=== PATIENT | female | born 1975 | race Caucasian/White ===

== ENCOUNTER → 2018-07-18 | Outpatient (CLI) | payer OTHER, SELFPAY ==
--- NOTE | 2018-07-18 08:46 | MRI_ITS ---
STUDY: MRI LEFT FOREFOOT WITHOUT CONTRAST REASON FOR EXAM: Female, 43 years old. Sesamoiditis. Pain at the first MTP joint TECHNIQUE: Standardized fat and water weighted pulse sequences were obtained in all 3 orthogonal planes. COMPARISON: None. FINDINGS: There is degenerative arthrosis of the metatarsophalangeal joint of the hallux. Normal tibial and fibular sesamoids, with normal sesamoids-first metatarsal articulations. Normal interphalangeal joint of the hallux. Normal proximal and distal phalanges of the great toe. Normal medial and lateral heads of the flexor hallucis brevis tendons. Normal flexor and extensor hallucis longus tendons. There are joint effusions of the metatarsophalangeal (MTP) joints. Normal interphalangeal joints of the second through fifth toes. Normal proximal, middle and distal phalanges of the second through fifth toes. There is intermetatarsal bursitis of the third interspace. Normal flexor and extensor tendons of the second through fifth toes. Normal visualized metatarsi. Normal intrinsic muscles of the forefoot. There is no demonstrated soft tissue abnormality. There is no demonstrated fracture. MRI/Lower Ext/No Jt/w/o IMPRESSION: No fracture or periosteal reaction Arthritic change at the first MTP joint. Intermetatarsal bursitis of the third interspace. Electronically Signed: Tejas Haley MD at 14:48 EDT , Service support ,
== END | disposition home or self-care (01) ==
LOC: MRI 08:39
PROVIDERS: Referring Provider Podiatrist; Visit Provider Podiatrist
DX: M25.872 Other specified joint disorders, left ankle and foot (principal); M84.375A Stress fracture, left foot, initial encounter for fracture
CPT/HCPCS: 73718

== ENCOUNTER → 2020-05-16 | Outpatient (CLI) | payer BC, SELFPAY ==
[2017-01-13 13:17] VITALS: BMI 30.7
[2020-05-19 20:07] LABS: Age Gdln ACOG Testing 30-65 (.)
[2020-05-19 21:06] LABS: HPV APTIMA, High Risk Negative (Negative); HPV Reflexed? YES, CHARGE PATIENT
== END | disposition home or self-care (01) ==
LOC: LABSPEC 15:27
PROVIDERS: Visit Provider Family Medicine
DX: Z01.419 Encounter for gynecological examination (general) (routine) without abnormal findings (principal); Z12.4 Encounter for screening for malignant neoplasm of cervix
CPT/HCPCS: 87624; 88175; G0145

== ENCOUNTER → 2020-05-23 11:43 | Outpatient (CLI) | payer BC, SELFPAY ==
--- NOTE | 2020-05-23 11:53 | BI_ITS ---
MAMMOGRAPHY - BILATERAL SCREENING REASON FOR EXAM: Female, 45 years old. Routine annual screening examination. PERTINENT HISTORY: Grandmother with breast cancer. TECHNIQUE: Digital bilateral breast ana (3D mammographic acquisition) in the CC and MLO projections. 2-D mediolateral oblique (MLO) and craniocaudad (CC) views of both breasts were obtained. CAD: Full Field Digital Mammography with Computer Added Detection was performed. COMPARISON: None. Baseline examination. FINDINGS: Breast Composition: The breasts are heterogeneously dense, which may obscure small masses. There are no dominant masses or suspicious calcifications. No other significant abnormalities are identified. BI/SCRN MAMM (CAD)W/ANA BILAT IMPRESSION: Negative screening mammogram. Yearly followup mammogram recommended. (A) ASSESSMENT CATEGORY: BIRADS Category 1: Negative. A letter regarding these results will be sent to the patient by the facility within 30 days. Approximately 10% of breast cancers are not detected by mammography. A normal mammogram should not delay biopsy of a clinically suspicious abnormality. [id number] Electronically Signed: Deep Henry MD at 12:52 EDT , Service support ,
== END ==
PROVIDERS: PCP Family Medicine; Referring Provider Family Medicine; Visit Provider Family Medicine
DX: Z12.31 Encounter for screening mammogram for malignant neoplasm of breast (principal)
CPT/HCPCS: 77063; 77067

== ENCOUNTER 2020-05-26 13:30 | Outpatient (RCR) | payer BC, SELFPAY ==
[2017-01-13 13:17] VITALS: BMI 30.7
== END 2020-08-08 23:59 ==
LOC: IMMUN 13:30
PROVIDERS: PCP Family Medicine; Referring Provider Family Medicine; Visit Provider Family Medicine
DX: Z23 Encounter for immunization (principal)
CPT/HCPCS: 0001A; 0002A; 91300

== ENCOUNTER → 2021-11-13 | Outpatient (CLI) | payer BC, SELFPAY ==
[2021-11-13 15:48] LABS: Thyroid Stim Hormone (TSH) 1.95 uIU/mL (0.358-3.74)
[2021-11-13 15:51] LABS: Hemoglobin A1c 5.2 % (3.8-5.6)
== END | disposition home or self-care (01) ==
LOC: MTLAB 12:48
PROVIDERS: PCP Family Medicine; Referring Provider Family Medicine; Visit Provider Family Medicine
DX: Z00.00 Encounter for general adult medical examination without abnormal findings (principal); N95.1 Menopausal and female climacteric states; R53.83 Other fatigue
CPT/HCPCS: 36415; 83036; 84443

== ENCOUNTER → 2021-12-03 | Outpatient (CLI) | payer BC, SELFPAY ==
--- NOTE | 2021-12-03 10:24 | BI_ITS ---
MAMMOGRAPHY - BILATERAL SCREENING REASON FOR EXAM: Female, 46 years old. Routine annual screening examination. PERTINENT HISTORY: Grandmother with breast cancer. TECHNIQUE: Digital bilateral breast ana (3D mammographic acquisition) in the CC and MLO projections. 2-D mediolateral oblique (MLO) and craniocaudad (CC) views of both breasts were obtained. CAD: Full Field Digital Mammography with Computer Added Detection was performed. COMPARISON: Comparison is made with prior study dated 05/23/2020. FINDINGS: Breast Composition: The breasts are heterogeneously dense, which may obscure small masses. There are no dominant masses or suspicious calcifications. No other significant abnormalities are identified. There has been no significant change since the prior study. BI/SCRN MAMM (CAD)W/ANA BILAT IMPRESSION: Stable bilateral screening mammogram. Yearly follow-up mammogram recommended. (A) ASSESSMENT CATEGORY: BIRADS Category 1: Negative. A letter regarding these results will be sent to the patient by the facility within 30 days. Approximately 10% of breast cancers are not detected by mammography. A normal mammogram should not delay biopsy of a clinically suspicious abnormality. [id number] Electronically Signed: Deep Henry MD at 12:23 EDT ,
== END | disposition home or self-care (01) ==
LOC: OPBI 10:22
PROVIDERS: PCP Family Medicine; Visit Provider Family Medicine
DX: Z12.31 Encounter for screening mammogram for malignant neoplasm of breast (principal)
CPT/HCPCS: 77063; 77067

== ENCOUNTER 2022-04-15 00:40 | Inpatient (IN) | payer BC, SELFPAY ==
[2022-04-15] VITALS (26 sets, daily range): BP systolic 95–153; BP diastolic 59–94; PULSE 67–145; RESP 15–28; TEMP 36.6–37.7; O2SAT 91–98; BMI 27.3; BMI 28.4
[2022-04-15] MEDS: Morphine 4 MG/ML Syringe IV (01:01)
[2022-04-15] MEDS: 0.9% Normal Saline 1,000 ML 999 ML IV (01:01)
[2022-04-15] MEDS: Ondansetron 4 MG/2 ML Vial IV (01:01)
[2022-04-15 01:03] LABS: Basophil# 0.03 X10^3/uL; Basophil% 0.2 % (0-1); Eosinophils% 0.8 % (0-5); Hematocrit 39.6 % (37-47); Hemoglobin 12.7 g/dL (12.0-15.0); Lymphocyte % 26.7 % (19-41); Mean Corp Hgb Conc 32.1 g/dL (32-36); Mean Corpuscular Hgb 28.9 pg (27.0-32.0); Mean Platelet Vol. 10.7 fl (6.2-12.0); Monocyte# 0.93 X10^3/uL; Monocyte% 7.5 % (0-10); NRBC Flagged by Analyzer 0 % (0-5); Neutrophil # 7.96 X10^3/uL (2.7-7.7); Neutrophil % 64.4 % (47-70); Platelet Count 299 K/mm3 (150-450); RBC Distribution Width CV 12.6 % (11.6-14.6); RBC Distribution Width SD 41.6 fl (35.1-43.9); White Blood Count 12.4 K/mm3 (4.4-11.0)
[2022-04-15 01:04] LABS: Anion Gap 7 (5-15); BUN 9 mg/dL (7-18); BUN/Creat Ratio 9.6 RATIO (10-20); Calcium,Total 9.1 mg/dL (8.5-10.1); Chloride 105 mmol/L (98-107); Creatinine, Serum 0.94 mg/dL (0.55-1.02); EST Glomerular Filtration Rate 68 mL/min (>60); Est Glom Filt Rate - Afr Amer 83 mL/min (>60); Estimated Creatinine Clearance 68.01 ml/min; Glucose 134 mg/dL (74-106); Sodium Level 140 mmol/L (136-145)
--- NOTE | 2022-04-15 01:04 | CT_ITS ---
EXAM: CT ABDOMEN AND PELVIS WITHOUT INTRAVENOUS CONTRAST CLINICAL INDICATION: flank pain flank pain TECHNIQUE: Helically acquired images were obtained of the abdomen and pelvis without intravenous contrast. This CT exam was performed using one or more of the following dose reduction techniques: automated exposure control, adjustment of the mA and/or kV according to patient size, and/or use of iterative reconstruction technique. This report was created using [employer] report generation technology. RADIATION DOSE: CTDIvol = 8.68 mGy, DLP = 466.03 mGy-cm COMPARISON: None. FINDINGS: LOWER THORAX: Unremarkable. Lung bases are clear. No cardiomegaly. No significant pericardial effusion. ABDOMEN: LIVER: Unremarkable. Homogeneous. GALLBLADDER AND BILE DUCTS: Unremarkable. No calcified gallstones. No gallbladder distention or wall edema. No intra- or extrahepatic biliary ductal dilation. PANCREAS: Unremarkable. No focal cystic mass. SPLEEN: Unremarkable. Normal size without focal cystic or solid mass. ADRENALS: Unremarkable. No nodules. KIDNEYS AND URETERS: Unremarkable. Normal renal size and position. No hydronephrosis. STOMACH AND BOWEL: There appears to be mural thickening of the loops of jejunum, which may be an artifact of nondistention. There is fluid distention of the loops of ileum, with diameters ranging up to 3.2 cm. This probably represents a localized ileus due to appendicitis. There is no evidence for mechanical small bowel obstruction. There is prominent fecal material in the right hemicolon which may represent constipation. PELVIS: APPENDIX: The appendix is not readily delineated in its entirety due to presence of dense surrounding fat infiltration, adjacent bowel loops, as well as lack of IV contrast. Segments of the appendix can be seen on axial images 125-139 and it is abnormally thickened with diameters ranging up to 2.3 cm. It contains multiple appendicoliths. There appears to be thickening of the cecal wall at the base of the appendix, seen on axial images 170-124. Findings are consistent with acute appendicitis. There is no visualized periappendiceal abscess or free intraperitoneal air to strongly suggest appendiceal rupture, however, infiltration of mesenteric fat is fairly extensive and there is a small amount of free fluid in the posterior cul-de-sac of the pelvis. Given these findings, appendiceal rupture cannot be excluded entirely. Possibility of pre-existing inflammatory bowel disease/Crohn''s disease would also be consideration. BLADDER: Unremarkable. REPRODUCTIVE: Unremarkable as visualized. No mass. ABDOMEN and PELVIS: INTRAPERITONEAL SPACE: See above. BONES/JOINTS: There are multilevel degenerative changes in the visualized spine. No suspicious lytic or blastic abnormality. SOFT TISSUES: Unremarkable. No discrete abdominal or pelvic wall hernia. VASCULATURE: Unremarkable. Abdominal aorta is non-dilated. LYMPH NODES: There are hyperplastic mesenteric lymph nodes in the right lower quadrant of the abdomen with short axis diameters ranging up to 1 cm. These probably represent reactive nodes related to appendicitis. CT/Abdomen/Pelvis without Cont IMPRESSION: 1. Enlarged appendix with appendicoliths and prominent surrounding inflammatory changes, consistent with acute appendicitis. 2. Inflammatory changes are quite extensive, there is a small amount of free fluid in the posterior cul-de-sac of the pelvis, and there is probably mild mural thickening of some loops of jejunum. This may represent spread of inflammation from appendicitis. Possibility of pre-existing inflammatory bowel disease should also be considered. Rupture of the appendix is thought to be unlikely, but cannot be entirely excluded given these findings. 3. Distention of the multiple loops of ileum probably represents localized ileus secondary to appendicitis. No evidence for mechanical small bowel obstruction. N.B. : The above Results were Read Back by Rashaad Wright MD to Darwin Rock DO, and understanding confirmed on 04/15/2022 02:21:05 (ET). Electronically Signed: Rashaad Wright MD at 2:31 EST Reading Location ID and State: [facility] / [place] , Service support ,
[2022-04-15 01:18] LABS: Internal QC Validated? YES +Cl - CLEAR BKGD; Pregnancy, Serum, hCG Quali. NEGATIVE Negative
[2022-04-15 01:23] LABS: AST(SGOT) 11 U/L (15-37); Alanine Aminotransfer ALT/SGPT 11 U/L (13-56); Albumin, Serum 3.7 g/dL (3.2-5.0); Alkaline Phosphatase 66 U/L (45-117); Bilirubin, Direct 0.08 mg/dL (0.00-0.30); Globulin 3.6 g/dL (2.2-4.2); Lipase 162 U/L (73-393); Protein, Total 7.3 g/dL (6.4-8.2)
[2022-04-15] MEDS: Ketorolac 30 MG/ML Syringe IV (01:27)
[2022-04-15] MEDS: HYDROmorphone 1 MG/ML Syringe IV ×2 (01:42→02:50)
[2022-04-15 02:23] LABS: Mucous, Urine 0 SEEN /hpf (<or=2+); Red Blood Cells-Urine 0 SEEN /hpf (0-5); Squamous Epithelial Cells - UA 0 SEEN /hpf (5-10); White Blood Cells 0 SEEN /hpf (0-5)
[2022-04-15 02:35] LABS: Color, Urine Yellow (Yellow); Glucose, Dipstick Normal (Normal); Ketone-Dipstick Negative (Negative); Leukocyte Esterase-Dipstick Negative /ul (Negative); Nitrite-Dipstick Negative (Negative); Occult Blood-Urine Negative /ul (Negative); Protein-Dipstick Negative (Negative); Urine Bilirubin Dipstick Negative (Negative); Urine Clarity Clear (Clear); Urine Urobilinogen Normal (Normal); Urine pH 6.5 (5.0 - 8.0)
[2022-04-15 02:42] LABS: Bacteria RARE /hpf (None Seen)
--- NOTE | 2022-04-15 03:26 | PCM.HP.STD ---
HPI - General General Date of Admission: 04/15/22 Date of Service: 04/15/22 Chief Complaint: abdominal pain HPI Narrative CHECO WINCHESTER, is a 47 F who presents with abdominal pain. She states that she initially started with generalized lower abdominal pain, she thought that this may be menstrual cramps. This began around and then she states that she was pain free for about two days. Then she began having pain - lower abdomen, more so on left side - today. She noted only recently has having right lower quadrant abdominal pain. She denies fevers. She denies chronic diarrhea. She denies constipation CT scan concerning for possible ruptured appendicits with surrounding inflammation. She has an elevated WBC of 12K. [facility] Medical History (Updated 04/15/22 @ 03:[address] Mariella Gallardo MD) Abdominal pain Abnormal CT scan, gastrointestinal tract Bipolar disorder Tonsillectomy planned Home Medications lamotrigine 200 mg tablet (Lamictal) 300 mg PO DAILY 01/02/17 [History Last Taken Unknown] quetiapine 300 mg tablet,extended release 24 hr mg PO 04/15/22 [History Last Taken Unknown] Allergy/AdvReac Type Severity Reaction Status Date / Time No Known Allergies Allergy Verified 01/24/17 08:22 Surgical History History of placement of ear tubes Social History Smoking Status: Never smoker ROS Constitutional Constitutional: Denies chills or fever(s) Eyes Eyes: Denies blurry vision ENT HEENT: Denies epistaxis Cardiovascular Cardiovascular: Denies chest pain at rest Respiratory/Chest Respiratory/Chest: Denies shortness of breath at rest Gastrointestinal Gastrointestinal: Reports abdominal pain; Denies constipation or diarrhea Genitourinary Genitourinary: Denies hematuria Musculoskeletal Musculoskeletal: Denies abnormal gait Integumentary Integumentary: Denies jaundice Neurologic Neurologic: Denies loss of vision Vital Signs Vital Signs Vital Signs: 04/15/22 00:41 04/15/22 01:40 04/15/22 02:54 Temperature 98.1 F Temperature Source Oral Pulse Rate 136 H 67 Respiratory Rate 18 18 18 Blood Pressure 140/62 H 130/75 H Blood Pressure Mean 88 93 Blood Pressure Location Pulse Ox 98 98 Oxygen Delivery Method Room Air Room Air 04/15/22 03:00 Temperature 98.9 F Temperature Source Temporal Pulse Rate 67 Respiratory Rate 18 Blood Pressure 130/75 H Blood Pressure Mean 93 Blood Pressure Location Right Arm Pulse Ox 98 Oxygen Delivery Method Room Air Weight Weight: 74.7 kg Body Mass Index (BMI) 27.3 Results Medical Records Data Attestation: I reviewed the patient's medical records Lab / Micro Data Attestation: I reviewed the patient's lab results. Result Diagrams: 04/15/22 00:43 04/15/22 00:43 Labs: Laboratory Results - last 24 hr 04/15/22 00:43: WBC 12.4 H, RBC 4.40, Hgb 12.7, Hct 39.6, MCV 90.0, MCH 28.9, MCHC 32.1, RDW Std Deviation 41.6, RDW Coeff of Radha 12.6, Plt Count 299, MPV 10.7, Immature Gran % (Auto) 0.400, Neut % (Auto) 64.4, Lymph % (Auto) 26.7, [place] % (Auto) 7.5, Eos % (Auto) 0.8, Baso % (Auto) 0.2, Absolute Neuts (auto) 8.0 H, Absolute Lymphs (auto) 3.30, Nucleated RBC % 0 04/15/22 00:43: Sodium 140, Potassium 4.0, Chloride 105, Carbon Dioxide 28.0, Anion Gap 7, BUN 9, Creatinine 0.94, Estim Creat Clear Calc 68.01, Est GFR (MDRD) Af Amer 83, Est GFR (MDRD) Non-Af 68, BUN/Creatinine Ratio 9.6 L, Glucose 134 H, Calcium 9.1 04/15/22 00:43: Serum , Qual NEGATIVE 04/15/22 00:43: Total Bilirubin 0.20, Direct Bilirubin 0.08, AST 11 L, ALT 11 L, Alkaline Phosphatase 66, Total Protein 7.3, Albumin 3.7, Globulin 3.6, Lipase 162 04/15/22 02:20: Urine Color Yellow, Urine Clarity Clear, Urine pH 6.5, Ur Specific [place] 1.010, Urine Protein Negative, Urine Glucose (UA) Normal, Urine Ketones Negative, Urine Occult Blood Negative, Urine Nitrite Negative, Urine Bilirubin Negative, Urine Urobilinogen Normal, Ur Leukocyte Esterase Negative, Urine RBC 0 SEEN, Urine WBC 0 SEEN, Ur Squamous Epith Cells 0 SEEN, Urine Bacteria RARE, Urine Mucus 0 SEEN Radiology Impression Abdomen/Pelvis CT 04/15/22 01:04 IMPRESSION: 1. Enlarged appendix with appendicoliths and prominent surrounding inflammatory changes, consistent with acute appendicitis. 2. Inflammatory changes are quite extensive, there is a small amount of free fluid in the posterior cul-de-sac of the pelvis, and there is probably mild mural thickening of some loops of jejunum. This may represent spread of inflammation from appendicitis. Possibility of pre-existing inflammatory bowel disease should also be considered. Rupture of the appendix is thought to be unlikely, but cannot be entirely excluded given these findings. 3. Distention of the multiple loops of ileum probably represents localized ileus secondary to appendicitis. No evidence for mechanical small bowel obstruction. N.B. : The above Results were Read Back by Rashaad Wright MD to Darwin Rock DO, and understanding confirmed on 04/15/2022 02:21:05 (ET). Electronically Signed: Rashaad Wright MD at 2:31 EST Reading Location ID and State: [facility] / [place] , Service support , ADDENDUM: 04/15/22 0238 IMPRESSION: 1. Enlarged appendix with appendicoliths and prominent surrounding inflammatory changes, consistent with acute appendicitis. 2. Inflammatory changes are quite extensive, there is a small amount of free fluid in the posterior cul-de-sac of the pelvis, and there is probably mild mural thickening of some loops of jejunum. This may represent spread of inflammation from appendicitis. Possibility of pre-existing inflammatory bowel disease should also be considered. Rupture of the appendix is thought to be unlikely, but cannot be entirely excluded given these findings. 3. Distention of the multiple loops of ileum probably represents localized ileus secondary to appendicitis. No evidence for mechanical small bowel obstruction. N.B. : The above Results were Read Back by Rashaad Wright MD to Darwin Rock DO, and understanding confirmed on 04/15/2022 02:21:05 (ET). Electronically Signed: Rashaad Wright MD at 2:31 EST Reading Location ID and State: [facility] / [place] , Service support , Assessment & Plan Assessment/Plan (1) Abnormal CT scan, gastrointestinal tract: PLAN: see below (2) Abdominal pain: PLAN: see below PLAN: Plan patient presents with RLQ, that initially was generalized/lower abdomen She has WBC of 12K CT scan findings are suggestive of appendicitis with large amount of surrounding inflammatory changes, concern for rupture. She denies any inflammatory bowel disease symptoms. Will proceed to laparoscopic appendectomy. I have discussed above with patient and her . If needed, this may be converted to open laparotomy. I have counseled the patient as to the risks of the procedure, including but not limited to: infection, bleeding, injury to any blood vessels/nerves, scar tissue, injury to any intrabdominal organs, injury to kidney/ureters, injury to bowel/bladder, intraabdominal abscess/bleeding, hernias at incisional sites, wound infections, possible open procedure, complications of anesthesia, postoperative pneumonia/cardiac problems/blood clots etc. the patient understands. She agrees to proceed I have answered all questions to the patient?s satisfaction and the patient has no further questions.
--- NOTE | 2022-04-15 04:24 | EX.ED.DYSGE1 ---
HPI History of Present Illness Chief Complaint: Abd Pain Narrative Narrative: Patient is a 47-year-old female with past medical history of bipolar disorder. She states she developed some crampy abdominal pain on which resolved. She states then this evening she was sleeping when she awoke with severe pain. She states it is located across the entire abdomen but seems to be more intense in the lower mid and left-sided abdomen. She reports nausea associated with the pain but denies any vomiting diarrhea or dysuria. She denies any fevers or chills and denies any recent trauma or concern for . However secondary to the worsening pain presents for evaluation [facility] Medical History Abdominal pain Abnormal CT scan, gastrointestinal tract Bipolar disorder Tonsillectomy planned Home Medications lamotrigine 200 mg tablet (Lamictal) 300 mg PO DAILY 01/02/17 [History Last Taken Unknown] quetiapine 300 mg tablet,extended release 24 hr 400 mg PO QHS 04/15/22 [History Last Taken 04/14/22] Allergy/AdvReac Type Severity Reaction Status Date / Time No Known Allergies Allergy Verified 04/15/22 05:49 Surgical History History of placement of ear tubes Social History Smoking Status: Current every day smoker tobacco type: e-cigarettes and smokeless tobacco ROS ROS ED Constitutional Constitutional ED: Denies chills or fever(s) ENT ENT ED: Denies sore throat Cardiovascular Cardiovascular: Denies chest pain Respiratory/Chest Respiratory/Chest: Denies cough or dyspnea Gastrointestinal Gastrointestinal: Reports abdominal pain and nausea; Denies constipation, diarrhea or vomiting Genitourinary Genitourinary ED: Denies dysuria or hematuria Musculoskeletal Musculoskeletal: Denies back pain or myalgias Integumentary Denies rash Neurologic Neurologic: Denies headache(s) Hematologic/Lymphatic Hematologic/Lymphatic: Denies easy bleeding or easy bruising EXAM Physical Exam Const Vital Signs: 04/15/22 00:41 04/15/22 01:40 04/15/22 02:54 Temperature 98.1 F Temperature Source Oral Pulse Rate 136 H 67 Respiratory Rate 18 18 18 Blood Pressure 140/62 H 130/75 H Blood Pressure Mean 88 93 Blood Pressure Location Pulse Ox 98 98 Oxygen Delivery Method Room Air Room Air 04/15/22 03:00 04/15/22 04:42 Temperature 98.9 F 98.9 F Temperature Source Temporal Temporal Pulse Rate 67 67 Respiratory Rate 18 18 Blood Pressure 130/75 H 130/75 H Blood Pressure Mean 93 93 Blood Pressure Location Right Arm Pulse Ox 98 98 Oxygen Delivery Method Room Air Room Air Positive well nourished and well developed General Appearance ED: well developed HEENT Reports moist mucous membranes Eyes PERRL and EOMs intact bilaterally General Eye ED: Negative for scleral icterus Neck supple Resp normal respiratory effort and clear to auscultation bilaterally Cardio regular rhythm Rate: tachycardic and other Other Details: Tachycardia cardiac rate with regular rhythm. radial pulses are pluses are 2 out of 4 bilaterally they are equal and symmetric GI non-distended GI Narrative: Abdomen is soft and nondistended with normal active bowel sounds. There is diffuse pain on palpation but it appears greatest in the suprapubic and left lower quadrant regions. No pulsatile mass or fluid wave noted Auscultation: normoactive bowel sounds Palpation: soft Back/Spine no CVA tenderness Extremity normal to inspection Neuro oriented x3 and CN's II-XII intact bilaterally Sensorium / Orientation: alert Psych mental status grossly normal Skin no rashes or lesions noted Skin Narrative: No overlying soft tissue changes to suggest infection or trauma General Skin Exam: Negative for jaundice MDM MDM MDM Narrative Medical decision making narrative: Patient presented to the ER afebrile but she was writhing in pain and she was tachycardic which I felt was secondary to the pain response as on auscultation she had a regular rhythm. The way she is writhing with sudden onset of pain was most concerning for kidney stone so basic labs with urine sample and noncontrast CT were ordered. Patient's white count is elevated at 12.4 but otherwise she has no severe electrolyte derangement or signs of acute kidney injury. The patient's CT scan showed diffuse intestinal inflammation but greatest in the right lower quadrant with changes concerning for acute appendicitis. Secondary to this she was given Zosyn and general surgery was contacted. Dr. Gallardo/general surgery was contacted secondary to this read. She evaluated the patient in the ER and will take the patient to surgery for correction of her abdominal infection. Lab Data Attestation: I reviewed the patient's lab results. Labs: Laboratory Results - last 24 hr 04/15/22 04/15/22 04/15/22 00:43 00:43 00:43 WBC 12.4 H RBC 4.40 Hgb 12.7 Hct 39.6 MCV 90.0 MCH 28.9 MCHC 32.1 RDW Std Deviation 41.6 RDW Coeff of Radha 12.6 Plt Count 299 MPV 10.7 Immature Gran % (Auto) 0.400 Neut % (Auto) 64.4 Lymph % (Auto) 26.7 [place] % (Auto) 7.5 Eos % (Auto) 0.8 Baso % (Auto) 0.2 Absolute Neuts (auto) 8.0 H Absolute Lymphs (auto) 3.30 Nucleated RBC % 0 Sodium 140 Potassium 4.0 Chloride 105 Carbon Dioxide 28.0 Anion Gap 7 BUN 9 Creatinine 0.94 Estim Creat Clear Calc 68.01 Est GFR (MDRD) Af Amer 83 Est GFR (MDRD) Non-Af 68 BUN/Creatinine Ratio 9.6 L Glucose 134 H Calcium 9.1 Total Bilirubin Direct Bilirubin AST ALT Alkaline Phosphatase Total Protein Albumin Globulin Lipase Serum , Qual NEGATIVE Urine Color Urine Clarity Urine pH Ur Specific [place] Urine Protein Urine Glucose (UA) Urine Ketones Urine Occult Blood Urine Nitrite Urine Bilirubin Urine Urobilinogen Ur Leukocyte Esterase Urine RBC Urine WBC Ur Squamous Epith Cells Urine Bacteria Urine Mucus Urine Opiates Screen Urine Methadone Screen Ur Barbiturates Screen Ur Phencyclidine Scrn Ur Amphetamines Screen MDMA (Ecstasy) Screen U Benzodiazepines Scrn Urine Cocaine Screen U Cannabinoids Screen Ur Drug Screen Comment 04/15/22 04/15/22 04/15/22 00:43 02:20 02:20 WBC RBC Hgb Hct MCV MCH MCHC RDW Std Deviation RDW Coeff of Radha Plt Count MPV Immature Gran % (Auto) Neut % (Auto) Lymph % (Auto) [place] % (Auto) Eos % (Auto) Baso % (Auto) Absolute Neuts (auto) Absolute Lymphs (auto) Nucleated RBC % Sodium Potassium Chloride Carbon Dioxide Anion Gap BUN Creatinine Estim Creat Clear Calc Est GFR (MDRD) Af Amer Est GFR (MDRD) Non-Af BUN/Creatinine Ratio Glucose Calcium Total Bilirubin 0.20 Direct Bilirubin 0.08 AST 11 L ALT 11 L Alkaline Phosphatase 66 Total Protein 7.3 Albumin 3.7 Globulin 3.6 Lipase 162 Serum , Qual Urine Color Yellow Urine Clarity Clear Urine pH 6.5 Ur Specific [place] 1.010 Urine Protein Negative Urine Glucose (UA) Normal Urine Ketones Negative Urine Occult Blood Negative Urine Nitrite Negative Urine Bilirubin Negative Urine Urobilinogen Normal Ur Leukocyte Esterase Negative Urine RBC 0 SEEN Urine WBC 0 SEEN Ur Squamous Epith Cells 0 SEEN Urine Bacteria RARE Urine Mucus 0 SEEN Urine Opiates Screen POSITIVE H Urine Methadone Screen NEGATIVE Ur Barbiturates Screen NEGATIVE Ur Phencyclidine Scrn NEGATIVE Ur Amphetamines Screen NEGATIVE MDMA (Ecstasy) Screen NEGATIVE U Benzodiazepines Scrn NEGATIVE Urine Cocaine Screen NEGATIVE U Cannabinoids Screen POSITIVE H Ur Drug Screen Comment Radiography Diagnostic Testing: Clinical Impression(s) from Imaging Studies Abdomen/Pelvis CT 04/15/22 01:04 IMPRESSION: 1. Enlarged appendix with appendicoliths and prominent surrounding inflammatory changes, consistent with acute appendicitis. 2. Inflammatory changes are quite extensive, there is a small amount of free fluid in the posterior cul-de-sac of the pelvis, and there is probably mild mural thickening of some loops of jejunum. This may represent spread of inflammation from appendicitis. Possibility of pre-existing inflammatory bowel disease should also be considered. Rupture of the appendix is thought to be unlikely, but cannot be entirely excluded given these findings. 3. Distention of the multiple loops of ileum probably represents localized ileus secondary to appendicitis. No evidence for mechanical small bowel obstruction. N.B. : The above Results were Read Back by Rashaad Wright MD to Darwin Rock DO, and understanding confirmed on 04/15/2022 02:21:05 (ET). Electronically Signed: Rashaad Wright MD at 2:31 EST Reading Location ID and State: [facility] / [place] , Service support , ADDENDUM: 04/15/22 0238 IMPRESSION: 1. Enlarged appendix with appendicoliths and prominent surrounding inflammatory changes, consistent with acute appendicitis. 2. Inflammatory changes are quite extensive, there is a small amount of free fluid in the posterior cul-de-sac of the pelvis, and there is probably mild mural thickening of some loops of jejunum. This may represent spread of inflammation from appendicitis. Possibility of pre-existing inflammatory bowel disease should also be considered. Rupture of the appendix is thought to be unlikely, but cannot be entirely excluded given these findings. 3. Distention of the multiple loops of ileum probably represents localized ileus secondary to appendicitis. No evidence for mechanical small bowel obstruction. N.B. : The above Results were Read Back by Rashaad Wright MD to Darwin Rock DO, and understanding confirmed on 04/15/2022 02:21:05 (ET). Electronically Signed: Rashaad Wright MD at 2:31 EST Reading Location ID and State: [facility] / [place] , Service support , Discharge Plan Dx/Rx/DC Orders Clinical Impression: Acute appendicitis Disposition Disposition: Acute Care Hospital [facility] Discharge Date/Time: 04/15/22 04:47
--- NOTE | 2022-04-15 05:05 | APP_PTH ---
PATIENT: CHECO [place]STER LOC: [facility] U#:[id number] AGE/SX: 47/F ROOM: [facility] RE04/15/[address]: Dr. Mariella Gallardo MD : 1975 BED: 1 DIS: 04/17/2022 SPEC #: [id number] RECD: 04/16/22 10:38 STATUS: JIMMY REBetina #: [id number] ALEXIS: 04/15/22 05:[address]: Mariella Gallardo DEPT: SURGICAL PATHOLOGY RECD BY: Aspen Preston ENTERED: 04/16/22 11:10 SP TYPE: APPENDIX OTHR DR: MD Dr. Nadege Zuluaga MD Dr. Prakash Chand, MD Tissues: Appendix, NOS Procedures: Surgery Specimen Level III HEADER OPERATION: Laparoscopic appendectomy PRE-OP DIAGNOSIS: Acute appendicitis, perforated TISSUE SUBMITTED: Appendix MICROSCOPIC DIAGNOSIS Appendix, appendectomy: Acute appendicitis and periappendicitis. SANTO:morro 04/17/2022 MICROSCOPIC DESCRIPTION Slides are reviewed. GROSS DESCRIPTION Received in fixative is one container labeled with the patient's name and designated appendix. The specimen consists of an appendix measuring 7.0 cm in length and 1.5 cm in average diameter. No gross perforations are evident. The serosal surface shows rodrigez-green discoloration. Serial sections reveal a patent lumen. Environmental Planning Engineer sections are submitted in two cassettes. / AM:morro 04/16/2022 TC:2 CPT: 55016
--- NOTE | 2022-04-15 05:26 | ECHOD_ITS ---
Reason For Study: Arrhythmia Procedure This was a 2D Doppler, Color Flow transthoracic echocardiogram. Exam performed portable in patient room. Left Ventricle Normal left ventricle. Left ventricular systolic function is normal. The estimated ejection fraction is 60 %. No regional wall motion abnormalities noted. Right Ventricle Normal RV size. Normal systolic function. Atria Normal left atrium. Normal right atrium. Mitral Valve Normal mitral valve. Tricuspid Valve Normal tricuspid valve. Mild (1+) tricuspid valve insufficiency. Pulmonary artery systolic pressure is 36 mmHg. Aortic Valve Normal aortic valve. Trisinus/trileaflet aortic valve. Pulmonic Valve Normal pulmonic valve. Great Vessels Normal aortic root. The pulmonary artery is normal size. Normal inferior vena cava. Pericardium/Pleural No pericardial effusion. MMode/2D Measurements & Calculations LVIDd: 4.2 cm IVSd: 1.1 cm Ao root diam: 3.0 cm LVIDs: 2.7 cm LVPWd: 1.1 cm RVDd: 2.9 cm FS: 35.6 % LAV(MOD-bp): 35.0 ml LVAd ap4: 26.9 cm2 LVAd ap2: 27.2 cm2 LAV(MOD-bp) Indexed: 19.2 ml/m2 LVLd ap4: 7.3 cm LVLd ap2: 7.9 cm LAV(MOD-sp2): 24.1 ml EDV(MOD-sp4): 81.0 ml EDV(MOD-sp2): 78.8 ml LAV(MOD-sp4): 51.4 ml EDV(sp4-el): 83.9 ml EDV(sp2-el): 79.7 ml LVAs ap4: 14.7 cm2 LVAs ap2: 16.5 cm2 LVLs ap4: 6.1 cm LVLs ap2: 6.8 cm ESV(MOD-sp4): 30.1 ml ESV(MOD-sp2): 32.8 ml ESV(sp4-el): 29.9 ml ESV(sp2-el): 33.8 ml EF(MOD-sp4): 62.8 % EF(MOD-sp2): 58.3 % EF(sp4-el): 64.4 % SV(MOD-sp4): 50.8 ml SV(MOD-sp2): 46.0 ml SV(sp4-el): 54.0 ml LA A4 area: 16.5 cm2 RA A4 area: 10.2 cm2 Doppler Measurements & Calculations MV E max miguelito: 111.2 cm/sec Lat Peak E' Miguelito: 12.2 cm/sec Med Peak E' Miguelito: 30.0 cm/sec E/E' lat: 9.1 E/E' med: 3.7 Ao V2 max: 140.8 cm/sec LV V1 max: 110.9 cm/sec PA V2 max: 106.0 cm/sec Ao max P.9 mmHg LV V1 max P.9 mmHg TR max miguelito: 281.0 cm/sec TR max P.6 mmHg ECHO/Echo Complete Interpretation Summary Normal left ventricle. Left ventricular systolic function is normal. The estimated ejection fraction is 60 %. Pulmonary artery systolic pressure is 36 mmHg. Structurally normal valves. Ordering Physician: German Bauer Referring Physician: Nadege Toure Performed By: Whitney Segura RDCS
--- NOTE | 2022-04-15 05:29 | PN.HOSP_ITS ---
Reason for Visit Reason for Visit: Diagnoses Unspecified abdominal pain (04/15/22) Abnormal findings on diagnostic imaging of other parts of digestive tract (04/15/22) Subjective Subjective Patient is a 47-year-old female with a significant history of bipolar disorder who presented to the emergency department with abdominal pain and CT scan conc erning for possible ruptured appendicitis with surrounding inflammation. Patient was taken to the operating room but was on the operation table and just before induction reportedly patient was having PVCs, bigeminy and a run of PVCs. Her heart rate went into the 140s to 150s. Anesthesia felt uncomfortable proceeding with induction. Surgery was not started. Patient reports drinking about 4 cups of coffee a day with last coffee a day before presentation. Objective Data Objective Data Vital Signs: Vital Signs Temp Pulse Resp BP Pulse Ox O2 Del Method 98.9 F 67 18 130/75 H 98 Room Air 04/15/22 04:42 04/15/22 04:42 04/15/22 04:42 04/15/22 04:42 04/15/22 04:42 04/15/22 04:42 Oxygen Delivery Method Room Air Weight: 74.7 kg Body Mass Index (BMI) 27.3 Intake & Output: Intake and Output for Last 24 Hours 04/13/22 04/14/22 04/15/22 23:59 23:59 23:59 Intake Total 1050 / 1050 Balance 1050 / 1050 Lab / Micro Data Result Diagrams: 04/15/22 00:43 04/15/22 00:43 Labs: Laboratory Results - last 24 hr 04/15/22 00:43: WBC 12.4 H, RBC 4.40, Hgb 12.7, Hct 39.6, MCV 90.0, MCH 28.9, MCHC 32.1, RDW Std Deviation 41.6, RDW Coeff of Radha 12.6, Plt Count 299, MPV 10.7, Immature Gran % (Auto) 0.400, Neut % (Auto) 64.4, Lymph % (Auto) 26.7, [place] % (Auto) 7.5, Eos % (Auto) 0.8, Baso % (Auto) 0.2, Absolute Neuts (auto) 8.0 H, Absolute Lymphs (auto) 3.30, Nucleated RBC % 0 04/15/22 00:43: Sodium 140, Potassium 4.0, Chloride 105, Carbon Dioxide 28.0, Anion Gap 7, BUN 9, Creatinine 0.94, Estim Creat Clear Calc 68.01, Est GFR (MDRD ) Af Amer 83, Est GFR (MDRD) Non-Af 68, BUN/Creatinine Ratio 9.6 L, Glucose 134 H, Calcium 9.1 04/15/22 00:43: Serum , Qual NEGATIVE 04/15/22 00:43: Total Bilirubin 0.20, Direct Bilirubin 0.08, AST 11 L, ALT 11 L, Alkaline Phosphatase 66, Total Protein 7.3, Albumin 3.7, Globulin 3.6, Lipase 162 04/15/22 02:20: Urine Color Yellow, Urine Clarity Clear, Urine pH 6.5, Ur Specific [place] 1.010, Urine Protein Negative, Urine Glucose (UA) Normal, Urine Ketones Negative, Urine Occult Blood Negative, Urine Nitrite Negative, Urine Bi lirubin Negative, Urine Urobilinogen Normal, Ur Leukocyte Esterase Negative, Urine RBC 0 SEEN, Urine WBC 0 SEEN, Ur Squamous Epith Cells 0 SEEN, Urine Bacteria RARE, Urine Mucus 0 SEEN Radiography Diagnostic Testing: Radiology Impression Abdomen/Pelvis CT 04/15/22 01:04 IMPRESSION: 1. Enlarged appendix with appendicoliths and prominent surrounding inflammatory changes, consistent with acute appendicitis. 2. Inflammatory changes are quite extensive, there is a small amount of free fluid in the posterior cul-de-sac of the pelvis, and there is probably mild mural thickening of some loops of jejunum. This may represent spread of inflammation from appendicitis. Possibility of pre-existing inflammatory bowel disease should also be considered. Rupture of the appendix is thought to be unlikely, but cannot be entirely excluded given these findings. 3. Distention of the multiple loops of ileum probably represents localized ileus secondary to appendicitis. No evidence for mechanical small bowel obstruction. N.B. : The above Results were Read Back by Rashaad Wright MD to Darwin Rock DO, and understanding confirmed on 04/15/2022 02:21:05 (ET). Electronically Signed: Rashaad Wright MD at 2:31 EST Reading Location ID and State: [facility] / [place] , Service support , ADDENDUM: 04/15/22 0238 IMPRESSION: 1. Enlarged appendix with appendicoliths and prominent surrounding inflammatory changes, consistent with acute appendicitis. 2. Inflammatory changes are quite extensive, there is a small amount of free fluid in the posterior cul-de-sac of the pelvis, and there is probably mild mural thickening of some loops of jejunum. This may represent spread of inflammation from appendicitis. Possibility of pre-existing inflammatory bowel disease should also be considered. Rupture of the appendix is thought to be unlikely, but cannot be entirely excluded given these findings. 3. Distention of the multiple loops of ileum probably represents localized ileus secondary to appendicitis. No evidence for mechanical small bowel obstruction. N.B. : The above Results were Read Back by Rashaad Wright MD to Darwin Rock DO, and understanding confirmed on 04/15/2022 02:21:05 (ET). Electronically Signed: Rashaad Wright MD at 2:31 EST Reading Location ID and State: [facility] / [place] , Service support , Physical Exam Narrative Physical exam: General: Well-nourished, well-developed. Head: Normocephalic, atraumatic, no tenderness Eyes: Vision is grossly intact. EOMI ENT, no trauma, moist mucous membranes, no rhinorrhea Neck: Nontender, No thyromegaly. CVS: Regular rate and rhythm. S1-S2 present. No murmur, gallop or rub. Respiratory : clear to auscultation bilaterally, chest wall nontender, no wheezing Abdomen: Soft, tender, nondistended, bowel sounds hypoactive. : Deferred Back: Nontender, no CVA tenderness, no midline spinal tenderness, deformities, step-offs Extremities: Nontender full range of motion, no trauma Skin: Normal color, no trauma, abrasions Neuro: Alert, oriented, cranial nerves II through XII grossly intact. Psychiatry: Normal mood. Normal affect. Not depressed. Not anxious. Assessment & Plan Assessment/Plan (1) Acute appendicitis: (2) Dysrhythmia: PLAN: Plan Acute appendicitis with possible rupture. Management by General surgery. Recommend antibiotics as patient may have to be cleared by cardiology before patient can have appendectomy. Dysrhythmia Patient noted to have tachycardia; PVCs with bigeminy and rounds of PVCs. Potassium is normal. Trend BMP. Check magnesium. Check TSH. Check echocardiogram. Cardiology consult. Denies use of cocaine. Scheduled metoprolol IV ordered. Bipolar disorder: Lamictal continued. VT prophylaxis: SCDs ordered. Thank you for your consult. Internal medicine service will continue to follow. Charges/Coding Multi Select Codes Visit Charges Office Visit/Consults: 98093 OV L4 Est
--- NOTE | 2022-04-15 05:34 | EKG12_ITS ---
Test Reason : DYSRYTHMIA Blood Pressure : / mmHG Vent. Rate : 131 BPM Atrial Rate : 131 BPM P-R Int : 132 ms QRS Dur : 088 ms QT Int : 316 ms P-R-T Axes : 057 073 056 degrees QTc Int : 466 ms Sinus tachycardia with frequent Premature ventricular complexes Otherwise normal ECG No previous ECGs available Confirmed by KEE CLARK, DANIEL ([id number]), index editor DELANEY HICKS ([id number]) on 04/16/2022 9:33:19 AM Referred By: Confirmed By:DANIEL SWEET MD
--- NOTE | 2022-04-15 06:06 | PCM.PN.BLA ---
Progress Note surgery was cancelled as patient had cardiac arrhythmia and anesthesia stated that patient should have cardiac evaluation before proceeding patient does admit to remote history of cocaine use, has history of marijuana use as documented in 2017
[2022-04-15] MEDS: Metoprolol Tartrate 5 MG/5 ML Vial IV (06:37)
[2022-04-15] MEDS: 0.9% Normal Saline 1,000 ML 125 ML IV ×2 (06:38→22:39)
--- NOTE | 2022-04-15 06:55 | CON.PCM.CA_ITS ---
Assessment & Plan Assessment/Plan (1) Dysrhythmia: PLAN: Patient is noted to have multiple premature ventricular complexes and nonsustained VT. We will obtain electrolyte panel to make sure that potassium remains over 4 and magnesium over 2. * I will recommend an echocardiogram to assess her ventricular function. If her ejection fraction is noted to be normal and her electrolytes are within normal limits I would recommend intravenous beta-manohar and 1 dose of amiodarone and then proceeding with surgery. * Further recommendations will be made depending on the results of the above. * * Thank you for allowing me to participate in the care of your patient. Please don't hesitate to call if any issues arise. * * * Addendum: Echocardiogram demonstrated preserved left ventricular systolic function. No structural abnormalities noted. I would recommend that we proceed with surgery. Above communicated with anesthesiologist. HPI Consult Data Date of Consult: 04/15/22 HPI Narrative HPI Narrative: CHECO WINCHESTER, is a 47 F who presents with abdominal comfort and diagnosed as having appendicitis who is being taken to the operating room and was noted to have premature ventricular complexes as well as nonsustained VT. The surgery was therefore canceled and patient was brought to the progressive care unit and urgent cardiology consultation requested. Patient denies any chest pain or shortness of breath or paroxysmal nocturnal dyspnea or pedal edema no neck arm or jaw discomfort suggest angina. There is a family history of a cardiomyopathy. Patient does admit to occasional marijuana use. EKG demonstrated sinus rhythm with frequent premature ventricular complexes but no a cute changes and telemetry demonstrated the same. [facility] Medical History Abdominal pain Abnormal CT scan, gastrointestinal tract Bipolar disorder Tonsillectomy planned Home Medications lamotrigine 200 mg tablet (Lamictal) 300 mg PO DAILY 01/02/17 [History Last Taken Unknown] quetiapine 300 mg tablet,extended release 24 hr 400 mg PO QHS 04/15/22 [History Last Taken 04/14/22] Allergy/AdvReac Type Severity Reaction Status Date / Time No Known Allergies Allergy Verified 04/15/22 05:49 Surgical History History of placement of ear tubes Social History Smoking Status: Current every day smoker tobacco type: e-cigarettes and smokeless tobacco ROS Constitutional Constitutional: Denies fever(s) or weight loss Eyes Eyes: Reports systems reviewed and no addt'l complaints, except as documented ENT HEENT: Reports systems reviewed and no addt'l complaints, except as documented Cardiovascular Cardiovascular: Denies chest pain at rest, chest pain with activity, dyspnea at rest, dyspnea on exertion, edema, palpitations or paroxysmal nocturnal dyspnea Respiratory/Chest Respiratory/Chest: Denies dyspnea on exertion, productive cough, shortness of breath at rest or shortness of breath with exertion Gastrointestinal Gastrointestinal: Reports abdominal pain and nausea; Denies change in bowel habits, vomiting or weight changes Genitourinary Genitourinary: Denies difficulty urinating Musculoskeletal Musculoskeletal: Denies joint stiffness or muscle weakness Integumentary Integumentary: Denies lesions Neurologic Neurologic: Denies dizziness or syncope Psychiatric Psychiatric: Denies anxiety Endocrine Endocrinology: Denies excessive sweating or fatigue Hematologic/Lymphatic Hematologic/Lymphatic: Denies anemia Allergic/Immunologic Allergic/Immunologic: Denies seasonal rhinorrhea Physical Exam Const alert, oriented x3 and no apparent distress General Appearance: cooperative HEENT hearing grossly normal bilaterally Head and Scalp: atraumatic Eyes EOMs intact bilaterally Neck General: normal visual inspection Chest inspection of chest normal and palpation of chest normal Resp normal respiratory effort Auscultation: clear to auscultation bilaterally Cardio regular rate, regular rhythm, S1 normal heart sound and S2 normal heart sound Jugular Venous Distention: JVD GI normal to inspection, nondistended, normoactive bowel sounds Extremity normal capillary refill and no pedal edema Peripheral Pulses: Yes pulses 2+ throughout and femoral pulses present Skin no rashes or lesions noted Neuro oriented x3 and CN's II-XII intact bilaterally Psych Appearance: grossly normal and appropriate Risk Stratification Risk Stratification Applicable: No Objective Data Vital Signs: Vital Signs Temp Pulse Resp BP Pulse Ox O2 Del Method 98.5 F 121 H 19 H 142/76 H 93 Room Air 04/15/22 06:39 04/15/22 06:39 04/15/22 06:39 04/15/22 06:39 04/15/22 06:39 04/15/22 06:39 Oxygen Delivery Method Room Air Weight: 171 lb 1.259 oz Body Mass Index (BMI) 28.4 Intake & Output: Intake and Output for Last 24 Hours 04/13/22 04/14/22 04/15/22 23:59 23:59 23:59 Intake Total 1050 / 1050 Balance 1050 / 1050 Lab / Micro Data Result Diagrams: 04/15/22 00:43 04/15/22 06:20 Labs: Laboratory Results - last 24 hr 04/15/22 00:43: WBC 12.4 H, RBC 4.40, Hgb 12.7, Hct 39.6, MCV 90.0, MCH 28.9, MCHC 32.1, RDW Std Deviation 41.6, RDW Coeff of Radha 12.6, Plt Count 299, MPV 10.7, Immature Gran % (Auto) 0.400, Neut % (Auto) 64.4, Lymph % (Auto) 26.7, [place] % (Auto) 7.5, Eos % (Auto) 0.8, Baso % (Auto) 0.2, Absolute Neuts (auto) 8.0 H, Absolute Lymphs (auto) 3.30, Nucleated RBC % 0 04/15/22 00:43: Sodium 140, Potassium 4.0, Chloride 105, Carbon Dioxide 28.0, Anion Gap 7, BUN 9, Creatinine 0.94, Estim Creat Clear Calc 68.01, Est GFR (MDRD) Af Amer 83, Est GFR (MDRD) Non-Af 68, BUN/Creatinine Ratio 9.6 L, Glucose 134 H, Calcium 9.1 04/15/22 00:43: Serum , Qual NEGATIVE 04/15/22 00:43: Total Bilirubin 0.20, Direct Bilirubin 0.08, AST 11 L, ALT 11 L, Alkaline Phosphatase 66, Total Protein 7.3, Albumin 3.7, Globulin 3.6, Lipase 162 04/15/22 02:20: Urine Color Yellow, Urine Clarity Clear, Urine pH 6.5, Ur Specific [place] 1.010, Urine Protein Negative, Urine Glucose (UA) Normal, Urine Ketones Negative, Urine Occult Blood Negative, Urine Nitrite Negative, Urine Bilirubin Negative, Urine Urobilinogen Normal, Ur Leukocyte Esterase Negative, Urine RBC 0 SEEN, Urine WBC 0 SEEN, Ur Squamous Epith Cells 0 SEEN, Urine Bacteria RARE, Urine Mucus 0 SEEN Cardiology Labs/Tests 04/15/22 00:43: WBC 12.4 H, RBC 4.40, Hgb 12.7, Hct 39.6, MCV 90.0, MCH 28.9, MCHC 32.1, Plt Count 299, MPV 10.7, Immature Gran % (Auto) 0.400, Neut % (Auto) 64.4, Lymph % (Auto) 26.7, [place] % (Auto) 7.5, Eos % (Auto) 0.8, Baso % (Auto) 0.2, Absolute Neuts (auto) 8.0 H, Nucleated RBC % 0 04/15/22 00:43: Sodium 140, Potassium 4.0, Chloride 105, Carbon Dioxide 28.0, Anion Gap 7, BUN 9, Creatinine 0.94, Est GFR (MDRD) Af Amer 83, Est GFR (MDRD) Non-Af 68, BUN/Creatinine Ratio 9.6 L, Glucose 134 H, Calcium 9.1 04/15/22 00:43: Total Bilirubin 0.20, Direct Bilirubin 0.08 04/15/22 02:20: Urine Color Yellow, Urine Clarity Clear, Urine pH 6.5, Ur Spe cific [place] 1.010, Urine Protein Negative, Urine Glucose (UA) Normal, Urine Ketones Negative, Urine Occult Blood Negative, Urine Nitrite Negative, Urine Bilirubin Negative, Urine Urobilinogen Normal, Ur Leukocyte Esterase Negative, Urine RBC 0 SEEN, Urine WBC 0 SEEN Rhythm: EKG: ECHO: Stress Test: Cardiac Cath: PCI: CT Surgery: Holter monitor: EPS: PPM: CXR: Chest CT Scan: Radiography Diagnostic Testing: Radiology Impression Abdomen/Pelvis CT 04/15/22 01:04 IMPRESSION: 1. Enlarged appendix with appendicoliths and prominent surrounding inflammatory changes, consistent with acute appendicitis. 2. Inflammatory changes are quite extensive, there is a small amount of free fluid in the posterior cul-de-sac of the pelvis, and there is probably mild mural thickening of some loops of jejunum. This may represent spread of inflammation from appendicitis. Possibility of pre-existing inflammatory bowel disease should also be considered. Rupture of the appendix is thought to be unlikely, but cannot be entirely excluded given these findings. 3. Distention of the multiple loops of ileum probably represents localized ileus secondary to appendicitis. No evidence for mechanical small bowel obstruction. N.B. : The above Results were Read Back by Rashaad Wright MD to Darwin Rock DO, and understanding confirmed on 04/15/2022 02:21:05 (ET). Electronically Signed: Rashaad Wright MD at 2:31 EST , ADDENDUM: 04/15/22 0238
[2022-04-15] MEDS: lamoTRIgine 150 MG Tablet 300 MG PO (06:59)
[2022-04-15] MEDS: 0.9% Saline Lock 10 ML Syringe IV (07:02)
[2022-04-15] MEDS: HYDROmorphone 0.5 MG/0.5 ML SYRINGE IV ×7 (07:02→22:24)
[2022-04-15 07:15] LABS: Anion Gap 6 (5-15); BUN 6 mg/dL (7-18); BUN/Creat Ratio 7.5 RATIO (10-20); Calcium,Total 8.2 mg/dL (8.5-10.1); Chloride 110 mmol/L (98-107); EST Glomerular Filtration Rate 83 mL/min (>60); Est Glom Filt Rate - Afr Amer 100 mL/min (>60); Estimated Creatinine Clearance 79.91 ml/min; Glucose 123 mg/dL (74-106); Magnesium 2.3 mg/dL (1.6-2.6); Potassium 3.8 mmol/L (3.5-5.1); Sodium Level 142 mmol/L (136-145); Thyroid Stim Hormone (TSH) 2.23 uIU/mL (0.358-3.74)
[2022-04-15 07:21] LABS: Troponin-I HS 7 pg/mL (3.0-54.0)
[2022-04-15 07:26] LABS: Amphetamine Urine VISTA NEGATIVE (<1000 ng/mL); Barbiturate Urine VISTA NEGATIVE (< 200 ng/mL); Benzodiazepine Urine VISTA NEGATIVE (< 200 ng/mL); Cocaine Urine VISTA NEGATIVE (< 300 ng/mL); Ecstacy Urine VISTA NEGATIVE (< 500 ng/mL); Methadone Urine VISTA NEGATIVE (< 300 ng/mL); PCP Urine VISTA NEGATIVE (< 25 ng/mL); THC Urine VISTA POSITIVE (< 50 ng/mL); Vista UDS pH Range 6
[2022-04-15 07:39] LABS: Phosphorus 1.5 mg/dL (2.5-4.9)
--- NOTE | 2022-04-15 07:48 | PCM.PN.HOSP ---
Reason for Visit Reason for Visit: Diagnoses Cardiac arrhythmia, unspecified (04/15/22) Unspecified acute appendicitis (04/15/22) Unspecified abdominal pain (04/15/22) Abnormal findings on diagnostic imaging of other parts of digestive tract (04/15/22) Subjective Subjective Follow-up for complicated appendicitis with localized peritonitis with NSVT, pulsus bigeminy and PVCs Objective Data Objective Data Vital Signs: Vital Signs Temp Pulse Resp BP Pulse Ox O2 Del Method 98.5 F 119 H 21 H 105/71 94 Room Air 04/15/22 06:39 04/15/22 07:41 04/15/22 07:41 04/15/22 07:41 04/15/22 07:41 04/15/22 07:41 Oxygen Delivery Method Room Air Weight: 171 lb 1.259 oz Body Mass Index (BMI) 28.4 Intake & Output: Intake and Output for Last 24 Hours 04/13/22 04/14/22 04/15/22 23:59 23:59 23:59 Intake Total 1050 / 1050 Balance 1050 / 1050 Lab / Micro Data Result Diagrams: 04/15/22 00:43 04/15/22 06:20 Labs: Laboratory Results - last 24 hr 04/15/22 00:43: WBC 12.4 H, RBC 4.40, Hgb 12.7, Hct 39.6, MCV 90.0, MCH 28.9, MCHC 32.1, RDW Std Deviation 41.6, RDW Coeff of Radha 12.6, Plt Count 299, MPV 10.7, Immature Gran % (Auto) 0.400, Neut % (Auto) 64.4, Lymph % (Auto) 26.7, [place] % (Auto) 7.5, Eos % (Auto) 0.8, Baso % (Auto) 0.2, Absolute Neuts (auto) 8.0 H, Absolute Lymphs (auto) 3.30, Nucleated RBC % 0 04/15/22 00:43: Sodium 140, Potassium 4.0, Chloride 105, Carbon Dioxide 28.0, Anion Gap 7, BUN 9, Creatinine 0.94, Estim Creat Clear Calc 68.01, Est GFR (MDRD) Af Amer 83, Est GFR (MDRD) Non-Af 68, BUN/Creatinine Ratio 9.6 L, Glucose 134 H, Calcium 9.1 04/15/22 00:43: Serum , Qual NEGATIVE 04/15/22 00:43: Total Bilirubin 0.20, Direct Bilirubin 0.08, AST 11 L, ALT 11 L, Alkaline Phosphatase 66, Total Protein 7.3, Albumin 3.7, Globulin 3.6, Lipase 162 04/15/22 02:20: Urine Color Yellow, Urine Clarity Clear, Urine pH 6.5, Ur Specific [place] 1.010, Urine Protein Negative, Urine Glucose (UA) Normal, Urine Ketones Negative, Urine Occult Blood Negative, Urine Nitrite Negative, Urine Bilirubin Negative, Urine Urobilinogen Normal, Ur Leukocyte Esterase Negative, Urine RBC 0 SEEN, Urine WBC 0 SEEN, Ur Squamous Epith Cells 0 SEEN, Urine Bacteria RARE, Urine Mucus 0 SEEN 04/15/22 02:20: Urine Opiates Screen POSITIVE H, Urine Methadone Screen NEGATIVE, Ur Barbiturates Screen NEGATIVE, Ur Phencyclidine Scrn NEGATIVE, Ur Amphetamines Screen NEGATIVE, MDMA (Ecstasy) Screen NEGATIVE, U Benzodiazepines Scrn NEGATIVE, Urine Cocaine Screen NEGATIVE, U Cannabinoids Screen POSITIVE H, Ur Drug Screen Comment 04/15/22 06:20: Sodium 142, Potassium 3.8, Chloride 110 H, Carbon Dioxide 26.0, Anion Gap 6, BUN 6 L, Creatinine 0.80, Estim Creat Clear Calc 79.91, Est GFR (MDRD) Af Amer 100, Est GFR (MDRD) Non-Af 83, BUN/Creatinine Ratio 7.5 L, Glucose 123 H, Calcium 8.2 L, Magnesium 2.3, TSH 2.23 04/15/22 06:20: Troponin I High Sens 7 04/15/22 06:20: Phosphorus 1.5 L Radiography Diagnostic Testing: Radiology Impression Abdomen/Pelvis CT 04/15/22 01:04 IMPRESSION: 1. Enlarged appendix with appendicoliths and prominent surrounding inflammatory changes, consistent with acute appendicitis. 2. Inflammatory changes are quite extensive, there is a small amount of free fluid in the posterior cul-de-sac of the pelvis, and there is probably mild mural thickening of some loops of jejunum. This may represent spread of inflammation from appendicitis. Possibility of pre-existing inflammatory bowel disease should also be considered. Rupture of the appendix is thought to be unlikely, but cannot be entirely excluded given these findings. 3. Distention of the multiple loops of ileum probably represents localized ileus secondary to appendicitis. No evidence for mechanical small bowel obstruction. N.B. : The above Results were Read Back by Rashaad Wright MD to Darwin Rock DO, and understanding confirmed on 04/15/2022 02:21:05 (ET). Electronically Signed: Rashaad Wright MD at 2:31 EST , ADDENDUM: 04/15/22 0238 IMPRESSION: 1. Enlarged appendix with appendicoliths and prominent surrounding inflammatory changes, consistent with acute appendicitis. 2. Inflammatory changes are quite extensive, there is a small amount of free fluid in the posterior cul-de-sac of the pelvis, and there is probably mild mural thickening of some loops of jejunum. This may represent spread of inflammation from appendicitis. Possibility of pre-existing inflammatory bowel disease should also be considered. Rupture of the appendix is thought to be unlikely, but cannot be entirely excluded given these findings. 3. Distention of the multiple loops of ileum probably represents localized ileus secondary to appendicitis. No evidence for mechanical small bowel obstruction. N.B. : The above Results were Read Back by Rashaad Wright MD to Darwin Rock DO, and understanding confirmed on 04/15/2022 02:21:05 (ET). Electronically Signed: Rashaad Wright MD at 2:31 EST , Physical Exam Narrative Seen and examined. Patient is still has significant abdominal pain mainly right-sided and requiring Dilaudid very frequently. security monitor shows sinus rhythm with PVCs. Physical exam General: Alert, Oriented x3, Cooperative HEENT: Atraumatic, PERRLA, EOMI, Normocephalic Oral: No Gingival or Mucosal Lesions/ Ulcerations Neck: Supple, No JVD, Negative Carotid Bruits Lungs: Air entry diminished in bilateral lung bases. No crepitation/rhonchi Cardiovascular: Sinus rhythm, short run of NSVT. Normal S1, Normal S2, No murmurs Abdomen: Soft, bowel sounds sluggish. Abdomen acutely tender mainly on the right side. Not distended. : No renal angle tenderness. No suprapubic tenderness. Extremities: No edema, Capillary Refill Less than 3 Seconds Skin: No rashes, No breakdown Musculoskeletal: No Tenderness to Palpation of Joints or Extremities Neurological: Cranial nerves II-XII grossly intact, DTR 2+/4 and Symmetrical, Neuro grossly intact Psych/Mental Status: Flat affect. Assessment & Plan Assessment/Plan (1) Acute appendicitis: (2) Dysrhythmia: PLAN: Plan This is 47 old female admitted for severe abdominal pain and found to be acute appendicitis 1. Complicated acute appendicitis with localized peritonitis and inflammation and localized ileus. CT abdomen reviewed and shows surrounding inflammation around enlarged appendix with appendicoliths and jejunal loops. Management by General surgery. On IV Zosyn. Patient is to be taken to the OR today for suspicion of possible appendicular perforation/rupture. 2. Dysrhythmia: Patient had multiple PVCs and NSVT. Patient does not have chest pain/pressure or shortness of breath, PND or pedal edema or JVD to suggest heart failure or angina twelve-lead EKG shows frequent PVCs but sinus rhythm. Patient evaluated by revenue accounting manager and recommended to keep electrolytes in optimal range. IV beta-manohar to control heart rate. Patient denies use of cocaine or sympathomimetic substance uses. Echo EF 60%, structurally normal valves, grossly normal. 3. Mild hypophosphatemia: K3.8, magnesium 2.3 and phosphorus 1.5. IV potassium phosphate getting replaced. 4. Bipolar disorder: Lamictal continued. 5. VT prophylaxis: SCDs ordered. Clinical Impression(s) from Imaging Studies Abdomen/Pelvis CT 04/15/22 01:04 IMPRESSION: 1. Enlarged appendix with appendicoliths and prominent surrounding inflammatory changes, consistent with acute appendicitis. 2. Inflammatory changes are quite extensive, there is a small amount of free fluid in the posterior cul-de-sac of the pelvis, and there is probably mild mural thickening of some loops of jejunum. This may represent spread of inflammation from appendicitis. Possibility of pre-existing inflammatory bowel disease should also be considered. Rupture of the appendix is thought to be unlikely, but cannot be entirely excluded given these findings. 3. Distention of the multiple loops of ileum probably represents localized ileus secondary to appendicitis. No evidence for mechanical small bowel obstruction. Echocardiogram 04/15/22 05:26 Interpretation Summary Normal left ventricle. Left ventricular systolic function is normal. The estimated ejection fraction is 60 %. Pulmonary artery systolic pressure is 36 mmHg. Structurally normal valves. Charges/Coding Visit Charges Inpatient E&M: 91829 Subs Hosp L2
[2022-04-15] MEDS: 0.9% Normal Saline 1,000 ML 15 ML IV (16:10)
--- NOTE | 2022-04-15 16:42 | SUR.PREOP ---
dr luciano talking with pt and family. explaining the reason that surgery was canceled this morning, what cardiology did and why pt is cleared for sugery this afternoon.
[2022-04-15] MEDS: Bupiv/Epi 0.25% 30 ML Vial (19:28)
--- NOTE | 2022-04-15 19:28 | PCM.OPRPT ---
Report of Operation Date of Procedure: 04/15/22 Pre-Operative Diagnosis: acute appendicitis Post-Operative Diagnosis: acute appendicitis, ruptured, generalized peritonitis Surgery/Procedure Performed:: laparoscopic appendectomy Description of Surgical Findings:: generalized peritonitis, fecal material intraabdominally at perforation site, ruptured appendicitis Surgeon: Mariella Gallardo Type of Anesthesia: General Anesthesiologist: Domingo Garner Specimen's removed: appendix Drains: 15 Fr GAURI - one in pelvis; one right paracolic gutter Estimated Blood Loss (mL): 10 ml Fluids Replaced: 1000 ml Description of Procedure: After informed consent was obtained, the patient was brought into the operating room. Appropriate time out protocol was followed. She was then placed in the supine position on the operating table. The patient was then placed under general anesthesia. The patient?s abdomen was then prepped with a sterile surgical skin preparation and sterile surgical drapes were placed. The infraumbilical skin fold was grasped with penetrating clamps and the skin and subcutaneous tissues were infiltrated with 0.25% marcaine with epinephrine. A skin incision was then made. A Veress needle was then inserted into the intraabdominal cavity and checked to be in the proper position with a normal saline drop test. A CO2 pneumoperitoneum was then created. Once this was achieved, the Veress needle was removed and a 5 mm trocar was placed in its stead. A 5 mm laparoscope was then inserted into the trocar. Careful examination of the intraabdominal contents was then done. There was no evidence of injury to any internal organs from placement of the Veress needle or the trocar. Under direct visualization, a 12mm suprapubic trocar and a 5mm left lower quadrant trocar was then placed into the intraabdominal cavity. The skin and subcutaneous tissues at these sites were first infiltrated with 0.25% marcaine with epinephrine. Attention was then directed to the right lower quadrant. Of note, there was generalized peritonitis. The appendix was visualized. It was ruptured and there was fecal material spilled out. The mesentery of the appendix was taken down by cauterizing the tissue from the free edge to the base of the appendix with the Harmonic scalpel. Once the base of the appendix was freed of surrounding tissues, then the linear gastrointestinal stapling device was brought into the abdominal cavity via the 12mm port and placed across the base of the appendix. The stapling device was fired, thus stapling across the base of the appendix and transecting it simultaneously. The appendix was then placed in an Endobag and this was brought out through the suprapubic trocar. The appendix was then forwarded to Pathology for analysis. The appendiceal stump was carefully examined. There was no evidence of any active bleeding or fecal leakage. The surrounding tissues were also examined and there was no evidence of any active bleeding or fecal/bile leakage. The intraabdominal cavity was vigorously irrigated with normal saline with four liters. Two 15Fr drains were placed in the intraabdominal cavity, One catheter was directed up the right colic gutter, the other placed in the pelvis. The drains were then sutured to the skin using nylon suture. The CO2 pneumoperitoneum was released and all trocars were removed intact. All skin incisions were reapproximated with monocryl suture. Cavilon and steristrips were applied to reinforce skin closure and proper sterile dressings were placed. The patient was then extubated and brought to the Recovery Room in stable condition. Complications none noted Admit VTE Documentation VTE Present on Admission: Yes VTE Mechan Device Prophylaxis: SCD's
[2022-04-16] VITALS (10 sets, daily range): BP systolic 105–126; BP diastolic 62–79; PULSE 98–120; RESP 12–16; TEMP 36.6–36.8; O2SAT 94–98
[2022-04-16] MEDS: Ketorolac 30 MG/ML Syringe IV ×4 (00:10→17:47)
[2022-04-16] MEDS: QUEtiapine 100 MG Tablet 400 MG PO ×2 (00:11→20:34)
[2022-04-16 05:55] LABS: Absolute Lymphocyte Count 0.68 X10^3/uL (0.83-4.51); Absolute Neutrophil Count 10.3 X10^3/uL (2.0-7.7); Basophil# 0.02 X10^3/uL; Basophil% 0.2 % (0-1); Hematocrit 31.5 % (37-47); Hemoglobin 10.1 g/dL (12.0-15.0); Lymphocyte # 0.68 X10^3/ul (0.83-4.51); Lymphocyte % 5.9 % (19-41); Mean Corp Hgb Conc 32.1 g/dL (32-36); Mean Corpuscular Hgb 29.4 pg (27.0-32.0); Mean Corpuscular Volume 91.8 fL (81-99); Mean Platelet Vol. 10.6 fl (6.2-12.0); Monocyte# 0.41 X10^3/uL; Monocyte% 3.6 % (0-10); NRBC Flagged by Analyzer 0 % (0-5); Neutrophil # 10.27 X10^3/uL (2.7-7.7); Neutrophil % 89.4 % (47-70); Platelet Count 221 K/mm3 (150-450); RBC Distribution Width CV 12.9 % (11.6-14.6); RBC Distribution Width SD 42.8 fl (35.1-43.9); Red Blood Count 3.43 M/mm3 (4.2-5.4); White Blood Count 11.5 K/mm3 (4.4-11.0)
--- NOTE | 2022-04-16 07:26 | PCM.PN.CARD ---
Subjective Subjective Patient seen and evaluated. Doing well from the cardiovascular standpoint had uneventful surgery Objective Data Vital Signs: Vital Signs Temp Pulse Resp BP Pulse Ox O2 Del Method O2 Flow Rate 98.3 F 113 H 16 124/69 H 97 Room Air 3 04/16/22 06:00 04/16/22 06:00 04/16/22 06:00 04/16/22 06:00 04/16/22 06:00 04/16/22 06:00 04/15/22 22:41 Oxygen Flow Rate (L/min) 3 Oxygen Delivery Method Room Air Weight: 171 lb 1.259 oz Body Mass Index (BMI) 28.4 Intake & Output: Intake and Output for Last 24 Hours 04/14/22 04/15/22 04/16/22 23:59 23:59 23:59 Intake Total 3560.00 / 3560.00 300 / 300 Output Total 195 / 195 48 / 48 Balance 3365.00 / 3365.00 252 / 252 Lab / Micro Data Result Diagrams: 04/16/22 05:29 04/15/22 06:20 Labs: Laboratory Results - last 24 hr 04/15/22 02:20: Urine Opiates Screen POSITIVE H, Urine Methadone Screen NEGATIVE, Ur Barbiturates Screen NEGATIVE, Ur Phencyclidine Scrn NEGATIVE, Ur Amphetamines Screen NEGATIVE, MDMA (Ecstasy) Screen NEGATIVE, U Benzodiazepines Scrn NEGATIVE, Urine Cocaine Screen NEGATIVE, U Cannabinoids Screen POSITIVE H 04/15/22 06:20: Phosphorus 1.5 L 04/16/22 05:29: WBC 11.5 H, RBC 3.43 L, Hgb 10.1 L, Hct 31.5 L, MCV 91.8, MCH 29.4, MCHC 32.1, RDW Std Deviation 42.8, RDW Coeff of Radha 12.9, Plt Count 221, MPV 10.6, Immature Gran % (Auto) 0.900, Neut % (Auto) 89.4 H, Lymph % (Auto) 5.9 L, [place] % (Auto) 3.6, Eos % (Auto) 0.0, Baso % (Auto) 0.2, Absolute Neuts (auto) 10.3 H, Absolute Lymphs (auto) 0.68 L, Nucleated RBC % 0 Cardiology Labs/Tests 04/15/22 06:20: Phosphorus 1.5 L 04/16/22 05:29: WBC 11.5 H, RBC 3.43 L, Hgb 10.1 L, Hct 31.5 L, MCV 91.8, MCH 29.4, MCHC 32.1, Plt Count 221, MPV 10.6, Immature Gran % (Auto) 0.900, Neut % (Auto) 89.4 H, Lymph % (Auto) 5.9 L, [place] % (Auto) 3.6, Eos % (Auto) 0.0, Baso % (Auto) 0.2, Absolute Neuts (auto) 10.3 H, Nucleated RBC % 0 Rhythm: EKG: ECHO: Stress Test: Cardiac Cath: PCI: CT Surgery: Holter monitor: EPS: PPM: CXR: Chest CT Scan: Radiography Diagnostic Testing: Radiology Impression Echocardiogram 04/15/22 05:26 Interpretation Summary Normal left ventricle. Left ventricular systolic function is normal. The estimated ejection fraction is 60 %. Pulmonary artery systolic pressure is 36 mmHg. Structurally normal valves. Ordering Physician: German Bauer Referring Physician: Nadege Toure Performed By: Whitney Segura RDCS Physical Exam Const alert, oriented x3 and no apparent distress General Appearance: cooperative HEENT hearing grossly normal bilaterally Head and Scalp: atraumatic Eyes EOMs intact bilaterally Neck General: normal visual inspection Chest inspection of chest normal and palpation of chest normal Resp normal respiratory effort Auscultation: clear to auscultation bilaterally Cardio regular rate, regular rhythm, S1 normal heart sound and S2 normal heart sound Jugular Venous Distention: JVD GI normal to inspection, nondistended, normoactive bowel sounds Extremity normal capillary refill and no pedal edema Peripheral Pulses: Yes pulses 2+ throughout and femoral pulses present Skin no rashes or lesions noted Neuro oriented x3 and CN's II-XII intact bilaterally Psych Appearance: grossly normal and appropriate Assessment & Plan Assessment/Plan (1) Dysrhythmia: PLAN: Patient is noted to have multiple premature ventricular complexes and nonsustained VT. Echocardiogram done demonstrated preserved left ventricular systolic function. Patient underwent surgery uneventfully. Plan to be to continue expectant management and keep potassium above 4 and magnesium over 2 We will start low-dose beta-manohar with metoprolol 25 mg twice a day. We will sign off for now.
[2022-04-16] MEDS: HYDROmorphone 0.5 MG/0.5 ML SYRINGE IV (07:38)
[2022-04-16] MEDS: Metoprolol Tartrate 25 MG Tablet PO ×2 (08:33→20:35)
[2022-04-16] MEDS: lamoTRIgine 150 MG Tablet 300 MG PO (08:36)
--- NOTE | 2022-04-16 10:50 | CASEMGMT ---
RN GORGE Face to Face with patient for initial transition planning/care coordination assessment. RN CM introduced self and role at [facility]. Patient lying in bed, alert and oriented, at bedside. Patient willing to participate in assessment and is able to answer all questions appropriately. Care providers, pharmacy, and demographics verified. Patient wishes to discharge home, denies need for home health at this time. Patient states she has no further needs or concerns at this time. CM to follow for discharge planning needs that may arise. PCP: [facility] Specialists: rossana Davenport Preferred [facility]acy: [facility] Insurance: [place] Prescription Benefit: yes Living Will/HPOA: none LNOK: Living Arrangements: Patient lives with in a single story home with 4 steps and railing to enter the home. Patient states she is independent at home. Transportation: self, DME/HHC: Patient denies DME in the home. Patient denies previous HHC or SNF. Disposition Plan: Patient to discharge home with family support and follow-up plans in place. Rianna SHELTON, RN, CM
--- NOTE | 2022-04-16 11:36 | PN.SURG_ITS ---
Subjective Subjective patient states that she has less abdominal pain than yesterday GAURI output still not clear, purulent passing flatus feels a little hungry Objective Data Objective Data Vital Signs: Vital Signs Temp Pulse Resp BP Pulse Ox O2 Del Method O2 Flow Rate 98 F 120 H 12 120/72 94 Room Air 3 04/16/22 08:27 04/16/22 08:33 04/16/22 08:27 04/16/22 08:33 04/16/22 08:27 04/16/22 08:27 04/15/22 22:41 Oxygen Flow Rate (L/min) 3 Oxygen Delivery Method Room Air Weight: 77.6 kg Body Mass Index (BMI) 28.4 Intake & Output: Intake and Output for Last 24 Hours 04/14/22 04/15/22 04/16/22 23:59 23:59 23:59 Intake Total 3560.00 / 3560.00 350 / 350 Output Total 195 / 195 48 / 48 Balance 3365.00 / 3365.00 302 / 302 Lab / Micro Data Attestation: I reviewed the patient's lab results. Result Diagrams: 04/16/22 05:29 04/15/22 06:20 Labs: Laboratory Results - last 24 hr 04/16/22 05:29: WBC 11.5 H, RBC 3.43 L, Hgb 10.1 L, Hct 31.5 L, MCV 91.8, MCH 29.4, MCHC 32.1, RDW Std Deviation 42.8, RDW Coeff of Radha 12.9, Plt Count 221, MPV 10.6, Immature Gran % (Auto) 0.900, Neut % (Auto) 89.4 H, Lymph % (Auto) 5.9 L, [place] % (Auto) 3.6, Eos % (Auto) 0.0, Baso % (Auto) 0.2, Absolute Neuts (auto) 10.3 H, Absolute Lymphs (auto) 0.68 L, Nucleated RBC % 0 Physical Exam Const alert and oriented x3 HEENT normocephalic Neck supple Resp normal respiratory effort Effort and Inspection: able to speak in complete sentences GI GI Narrative: abdomen is soft with dressings intact GAURI output - serosanguinous with some purulent drainage Assessment & Plan Assessment/Plan (1) Status post laparoscopic appendectomy: PLAN: see below PLAN: Plan advance diet encourage ambulation, drinking fluids/water, incentive spirometry continue antibiotics start po meds/pain meds
[2022-04-16] MEDS: HYDROcodone Bitartrate/Apap 5/325 Tablet PO ×2 (13:36→20:35)
--- NOTE | 2022-04-16 14:36 | PCM.PN.HOSP ---
Reason for Visit Reason for Visit: Follow-up for ruptured appendicitis with generalized peritonitis and multiple PVCs and NSVT. Diagnoses Cardiac arrhythmia, unspecified (04/15/22) Unspecified acute appendicitis (04/15/22) Unspecified abdominal pain (04/15/22) Abnormal findings on diagnostic imaging of other parts of digestive tract (04/15/22) Acquired absence of other specified parts of digestive tract (04/15/22) Objective Data Objective Data Vital Signs: Vital Signs Temp Pulse Resp BP Pulse Ox O2 Del Method O2 Flow Rate 98 F 120 H 12 120/72 94 Room Air 3 04/16/22 08:27 04/16/22 08:33 04/16/22 08:27 04/16/22 08:33 04/16/22 08:27 04/16/22 08:27 04/15/22 22:41 Oxygen Flow Rate (L/min) 3 Oxygen Delivery Method Room Air Weight: 171 lb 1.259 oz Body Mass Index (BMI) 28.4 Intake & Output: Intake and Output for Last 24 Hours 04/14/22 04/15/22 04/16/22 23:59 23:59 23:59 Intake Total 3560.00 / 3560.00 1999 Output Total 195 / 195 148 / 148 Balance 3365.00 / 3365.00 1852 / 1852 Lab / Micro Data Result Diagrams: 04/16/22 05:29 04/15/22 06:20 Labs: Laboratory Results - last 24 hr 04/16/22 05:29: WBC 11.5 H, RBC 3.43 L, Hgb 10.1 L, Hct 31.5 L, MCV 91.8, MCH 29.4, MCHC 32.1, RDW Std Deviation 42.8, RDW Coeff of Radha 12.9, Plt Count 221, MPV 10.6, Immature Gran % (Auto) 0.900, Neut % (Auto) 89.4 H, Lymph % (Auto) 5.9 L, [place] % (Auto) 3.6, Eos % (Auto) 0.0, Baso % (Auto) 0.2, Absolute Neuts (auto) 10.3 H, Absolute Lymphs (auto) 0.68 L, Nucleated RBC % 0 Physical Exam Narrative Seen and examined. Patient abdominal pain has much improved. Patient passing flatus. On clear liquid diet. Patient and her upset about not communicated about the operative finding, pathology and PVCs and echo. I explained to them as per operative note. international student advisor shows multiple PVCs and runs of NSVT. Sinus tachycardia. Physical exam General: Alert, Oriented x3, Cooperative HEENT: Atraumatic, PERRLA, EOMI, Normocephalic Oral: Oral mucosa moist. No Gingival or Mucosal Lesions/ Ulcerations Neck: Supple, No JVD, Negative Carotid Bruits Lungs: Air entry diminished in bilateral lung bases. No crepitation/rhonchi Cardiovascular: Sinus rhythm, short run of NSVT. Normal S1, Normal S2, No murmurs Abdomen: Soft, bowel sounds bowel sounds present. 2 GAURI drain present and pelvis site. Serosanguineous drainage. Mild tenderness. : No renal angle tenderness. No suprapubic tenderness. Extremities: No edema, Capillary Refill Less than 3 Seconds Skin: No rashes, No breakdown Musculoskeletal: No Tenderness to Palpation of Joints or Extremities Neurological: Cranial nerves II-XII grossly intact, DTR 2+/4 and Symmetrical, Neuro grossly intact Psych/Mental Status: Flat affect. Assessment & Plan Assessment/Plan (1) Acute appendicitis: (2) Dysrhythmia: PLAN: Plan This is 47 old female admitted for severe abdominal pain and found to be acute appendicitis 1. Complicated acute appendicitis with localized peritonitis and inflammation and localized ileus. CT abdomen reviewed and shows surrounding inflammation around enlarged appendix with appendicoliths and jejunal loops. Management by General surgery. On IV Zosyn. Patient is to be taken to the OR today for suspicion of possible appendicular perforation/rupture. 04/16: Operative note reviewed and explained to the patient and her at the bedside. It was a ruptured appendix with fecal material intra-abdominal at perforation site and generalized peritonitis. Patient pain is started on and got worse and admitted on Friday. Passing flatus. On clear liquid diet. Continue IV antibiotic. GAURI drain has serosanguineous turbid looking fluid. 2. Dysrhythmia: Patient had multiple PVCs and NSVT. Patient does not have chest pain/pressure or shortness of breath, PND or pedal edema or JVD to suggest heart failure or angina twelve-lead EKG shows frequent PVCs but sinus rhythm. Patient evaluated by light fixture servicer and recommended to keep electrolytes in optimal range. IV beta-manohar to control heart rate. Patient denies use of cocaine or sympathomimetic substance uses. Echo EF 60%, structurally normal valves, grossly normal. 04/16: Patient on metoprolol oral. 2D echo explained to the patient. 3. Mild hypophosphatemia: K3.8, magnesium 2.3 and phosphorus 1.5. IV potassium phosphate getting replaced. 04/16: Repeat labs ordered. 4. Bipolar disorder: Lamictal continued. 5. VT prophylaxis: SCDs ordered. Clinical Impression(s) from Imaging Studies Abdomen/Pelvis CT 04/15/22 01:04 IMPRESSION: 1. Enlarged appendix with appendicoliths and prominent surrounding inflammatory changes, consistent with acute appendicitis. 2. Inflammatory changes are quite extensive, there is a small amount of free fluid in the posterior cul-de-sac of the pelvis, and there is probably mild mural thickening of some loops of jejunum. This may represent spread of inflammation from appendicitis. Possibility of pre-existing inflammatory bowel disease should also be considered. Rupture of the appendix is thought to be unlikely, but cannot be entirely excluded given these findings. 3. Distention of the multiple loops of ileum probably represents localized ileus secondary to appendicitis. No evidence for mechanical small bowel obstruction. Echocardiogram 04/15/22 05:26 Interpretation Summary Normal left ventricle. Left ventricular systolic function is normal. The estimated ejection fraction is 60 %. Pulmonary artery systolic pressure is 36 mmHg. Structurally normal valves. Charges/Coding Visit Charges Inpatient E&M: 24835 Subs Hosp L2
--- NOTE | 2022-04-16 15:12 | CASEMGMT ---
Patient does not have advance directives and per admission questions patient declined information on documents. Faviola PATEL
--- NOTE | 2022-04-16 15:13 | CASEMGMT ---
Patient does not have advance directives and per admission questions patient declined information on documents. Faviola PATEL
[2022-04-16 15:21] LABS: Anion Gap 6 (5-15); BUN 6 mg/dL (7-18); BUN/Creat Ratio 8.2 RATIO (10-20); Calcium,Total 7.7 mg/dL (8.5-10.1); Chloride 108 mmol/L (98-107); Creatinine, Serum 0.73 mg/dL (0.55-1.02); EST Glomerular Filtration Rate 92 mL/min (>60); Est Glom Filt Rate - Afr Amer 111 mL/min (>60); Estimated Creatinine Clearance 87.57 ml/min; Glucose 127 mg/dL (74-106); Magnesium 2.1 mg/dL (1.6-2.6); Potassium 4.3 mmol/L (3.5-5.1); Sodium Level 139 mmol/L (136-145)
[2022-04-16 15:41] LABS: Phosphorus 2.8 mg/dL (2.5-4.9)
[2022-04-16] MEDS: 0.9% Saline Lock 10 ML Syringe IV ×2 (17:47→22:05)
[2022-04-17] MEDS: Ketorolac 30 MG/ML Syringe IV ×4 (00:19→17:20)
[2022-04-17] MEDS: 0.9% Saline Lock 10 ML Syringe IV ×4 (00:19→17:21)
[2022-04-17 01:00] VITALS: PULSE 96
[2022-04-17 05:33] VITALS: BP 97/63; PULSE 100; RESP 14; TEMP 37; O2SAT 94
[2022-04-17 05:35] LABS: Absolute Lymphocyte Count 1.35 X10^3/uL (0.83-4.51); Absolute Neutrophil Count 6.1 X10^3/uL (2.0-7.7); Basophil# 0.02 X10^3/uL; Basophil% 0.2 % (0-1); Eosinophil# 0.14 X10^3/uL; Eosinophils% 1.7 % (0-5); Hematocrit 30.7 % (37-47); Lymphocyte # 1.35 X10^3/ul (0.83-4.51); Lymphocyte % 16.7 % (19-41); Mean Corp Hgb Conc 32.6 g/dL (32-36); Mean Corpuscular Hgb 29.5 pg (27.0-32.0); Mean Corpuscular Volume 90.6 fL (81-99); Mean Platelet Vol. 11.5 fl (6.2-12.0); Monocyte# 0.45 X10^3/uL; Monocyte% 5.6 % (0-10); NRBC Flagged by Analyzer 0 % (0-5); Neutrophil # 6.07 X10^3/uL (2.7-7.7); Neutrophil % 75.3 % (47-70); Platelet Count 222 K/mm3 (150-450); RBC Distribution Width CV 12.9 % (11.6-14.6); RBC Distribution Width SD 42.5 fl (35.1-43.9); Red Blood Count 3.39 M/mm3 (4.2-5.4); White Blood Count 8.1 K/mm3 (4.4-11.0)
[2022-04-17 06:09] LABS: Anion Gap 4 (5-15); BUN 6 mg/dL (7-18); BUN/Creat Ratio 7.8 RATIO (10-20); Chloride 109 mmol/L (98-107); Creatinine, Serum 0.77 mg/dL (0.55-1.02); EST Glomerular Filtration Rate 86 mL/min (>60); Est Glom Filt Rate - Afr Amer 104 mL/min (>60); Estimated Creatinine Clearance 83.02 ml/min; Glucose 105 mg/dL (74-106); Sodium Level 140 mmol/L (136-145)
[2022-04-17 07:27] VITALS: BP 107/71; PULSE 104; RESP 14; TEMP 36.7; O2SAT 94
--- NOTE | 2022-04-17 07:29 | PCM.PN.HOSP ---
Reason for Visit Reason for Visit: Diagnoses Cardiac arrhythmia, unspecified (04/15/22) Unspecified acute appendicitis (04/15/22) Unspecified abdominal pain (04/15/22) Abnormal findings on diagnostic imaging of other parts of digestive tract (04/15/22) Acquired absence of other specified parts of digestive tract (04/15/22) Subjective Subjective Follow-up for ruptured appendix with perforation, generalized peritonitis and tachycardia with PVCs and NSVT Objective Data Objective Data Vital Signs: Vital Signs Temp Pulse Resp BP Pulse Ox O2 Del Method O2 Flow Rate 98.1 F 104 H 14 107/71 94 Room Air 3 04/17/22 07:27 04/17/22 07:27 04/17/22 07:27 04/17/22 07:27 04/17/22 07:27 04/17/22 07:27 04/15/22 22:41 Oxygen Flow Rate (L/min) 3 Oxygen Delivery Method Room Air Weight: 171 lb 1.259 oz Body Mass Index (BMI) 28.4 Intake & Output: Intake and Output for Last 24 Hours 04/15/22 04/16/22 04/17/22 23:59 23:59 23:59 Intake Total 3560.00 / 3560.00 2700 / 2700 50 / 50 Output Total 195 / 195 363 / 363 80 / 80 Balance 3365.00 / 3365.00 2337 / 2337 -30 / -30 Lab / Micro Data Result Diagrams: 04/17/22 04:10 04/17/22 04:10 Labs: Laboratory Results - last 24 hr 04/16/22 05:29: Sodium 139, Potassium 4.3, Chloride 108 H, Carbon Dioxide 25.0, Anion Gap 6, BUN 6 L, Creatinine 0.73, Estim Creat Clear Calc 87.57, Est GFR (MDRD) Af Amer 111, Est GFR (MDRD) Non-Af 92, BUN/Creatinine Ratio 8.2 L, Glucose 127 H, Calcium 7.7 L, Magnesium 2.1 04/16/22 05:29: Phosphorus 2.8 04/17/22 04:10: WBC 8.1, RBC 3.39 L, Hgb 10.0 L, Hct 30.7 L, MCV 90.6, MCH 29.5, MCHC 32.6, RDW Std Deviation 42.5, RDW Coeff of Radha 12.9, Plt Count 222, MPV 11.5, Immature Gran % (Auto) 0.500, Neut % (Auto) 75.3 H, Lymph % (Auto) 16.7 L, [place] % (Auto) 5.6, Eos % (Auto) 1.7, Baso % (Auto) 0.2, Absolute Neuts (auto) 6.1, Absolute Lymphs (auto) 1.35, Nucleated RBC % 0 04/17/22 04:10: Sodium 140, Potassium 4.0, Chloride 109 H, Carbon Dioxide 27.0, Anion Gap 4 L, BUN 6 L, Creatinine 0.77, Estim Creat Clear Calc 83.02, Est GFR (MDRD) Af Amer 104, Est GFR (MDRD) Non-Af 86, BUN/Creatinine Ratio 7.8 L, Glucose 105, Calcium 8.0 L Physical Exam Narrative Seen and examined. Patient abdominal pain has much improved. Patient passing flatus. Diet advanced to regular diet. He has walked in hallway yesterday. Rate is better controlled. Heart rate in upper 100s. telemetry monitor shows PVCs decreased in frequency. Yesterday. Physical exam General: Alert, Oriented x3, Cooperative HEENT: Atraumatic, PERRLA, EOMI, Normocephalic Oral: Oral mucosa moist. No Gingival or Mucosal Lesions/ Ulcerations Neck: Supple, No JVD, Negative Carotid Bruits Lungs: Air entry diminished in bilateral lung bases. No crepitation/rhonchi Cardiovascular: Sinus rhythm, short run of NSVT. Normal S1, Normal S2, No murmurs Abdomen: Soft, bowel sounds bowel sounds present. 2 GAURI drain present in pelvis site. Turbid looking, seropurulent drainage. : No renal angle tenderness. No suprapubic tenderness. Extremities: No edema, Capillary Refill Less than 3 Seconds Skin: No rashes, No breakdown Musculoskeletal: No Tenderness to Palpation of Joints or Extremities Neurological: Cranial nerves II-XII grossly intact, DTR 2+/4 and Symmetrical, Neuro grossly intact Psych/Mental Status: Flat affect. Assessment & Plan Assessment/Plan (1) Acute appendicitis: (2) Dysrhythmia: PLAN: Plan This is 47 old female admitted for severe abdominal pain and found to be acute appendicitis 1. Complicated acute appendicitis with localized peritonitis and inflammation and localized ileus. CT abdomen reviewed and shows surrounding inflammation around enlarged appendix with appendicoliths and jejunal loops. Management by General surgery. On IV Zosyn. Patient is to be taken to the OR today for suspicion of possible appendicular perforation/rupture. 04/16: Operative note reviewed and explained to the patient and her at the bedside. It was a ruptured appendix with fecal material intra-abdominal at perforation site and generalized peritonitis. Patient pain is started on and got worse and admitted on Friday. Passing flatus. On clear liquid diet. Continue IV antibiotic. GAURI drain has serosanguineous turbid looking fluid. 04/17: Patient abdominal pain is much improved. She had Seroquel late therefore she was groggy in the morning but improved later on. Diet advanced to solid diet. Passing flatus. Bowel sounds good. 2. Dysrhythmia: Patient had multiple PVCs and NSVT. Patient does not have chest pain/pressure or shortness of breath, PND or pedal edema or JVD to suggest heart failure or angina twelve-lead EKG shows frequent PVCs but sinus rhythm. Patient evaluated by regulatory coordinator and recommended to keep electrolytes in optimal range. IV beta-manohar to control heart rate. Patient denies use of cocaine or sympathomimetic substance uses. Echo EF 60%, structurally normal valves, grossly normal. 04/16: Patient on metoprolol oral. 2D echo explained to the patient. 04/17: PVCs and is 80 much better controlled. Patient is discharged on metoprolol 25 mg twice daily with follow-up with cardiology. 3. Mild hypophosphatemia: K3.8, magnesium 2.3 and phosphorus 1.5. IV potassium phosphate getting replaced. 04/16: Repeat labs ordered. 04/17: Potassium sodium and bicarb in normal range. Serum magnesium and phosphorus level normal. 4. Bipolar disorder: Lamictal continued. 5. VT prophylaxis: SCDs ordered. Patient is getting discharged from surgical service. Follow-up instructions completed by surgeon and advised to follow-up as mentioned. Clinical Impression(s) from Imaging Studies Abdomen/Pelvis CT 04/15/22 01:04 IMPRESSION: 1. Enlarged appendix with appendicoliths and prominent surrounding inflammatory changes, consistent with acute appendicitis. 2. Inflammatory changes are quite extensive, there is a small amount of free fluid in the posterior cul-de-sac of the pelvis, and there is probably mild mural thickening of some loops of jejunum. This may represent spread of inflammation from appendicitis. Possibility of pre-existing inflammatory bowel disease should also be considered. Rupture of the appendix is thought to be unlikely, but cannot be entirely excluded given these findings. 3. Distention of the multiple loops of ileum probably represents localized ileus secondary to appendicitis. No evidence for mechanical small bowel obstruction. Echocardiogram 04/15/22 05:26 Interpretation Summary Normal left ventricle. Left ventricular systolic function is normal. The estimated ejection fraction is 60 %. Pulmonary artery systolic pressure is 36 mmHg. Structurally normal valves. Charges/Coding Visit Charges Inpatient E&M: 22159 Subs Hosp L2
[2022-04-17] MEDS: HYDROcodone Bitartrate/Apap 5/325 Tablet PO ×2 (07:30→14:43)
[2022-04-17 07:31] VITALS: BP 107/71; PULSE 104
[2022-04-17] MEDS: Metoprolol Tartrate 25 MG Tablet PO (07:31)
[2022-04-17] MEDS: lamoTRIgine 150 MG Tablet 300 MG PO (07:32)
--- NOTE | 2022-04-17 14:16 | DCINST_ITS ---
Discharge Instructions Follow Up Care Test Results: Test results from this visit will be discussed in further detail at your follow- up appointment, if applicable. Discharge Plan Admission Admit Date/Time: 04/15/22 19:28 Primary Reason for Your Visit: acute appendicitis with perforation Attending Provider: Mariella Gallardo Primary Care Provider: Nadege Toure Consulting Providers: Khoa Teresa ; Khris Harris Instructions Additional Instructions / Restrictions: Recommended pain control regimen - May take 600 mg ibuprofen (Motrin) and then in 3-4 hours, may take 650 mg acetaminophen (Tylenol), then in 3-4 hours may take 600 mg ibuprofen, then in 3- 4 hours may take 650 mg acetaminophen and so on for 2-3 days May take narcotic pain medication for pain that is not controlled by above and at night for comfort through the night Leave dressings in place May take shower, cover drain site with towel or other such covering to prevent from getting wet. Empty drains and record outputs as shown by the nursing staff. Do not soak - no tub baths/swimming No lifting/pushing/pulling greater than 10 pounds for a month. Stay on liquid/soup diet for a couple of days, then advance to regular diet as tolerated, drink plenty of fluids. Avoid carbonated beverages for a few days as this will cause abdominal bloating and thus discomfort after our surgery. Please call my office for an appointment to see Luanne Townsend PA-C on 2022. Office number is If any questions, please call my office at and ask the tinsel machine operator for the general surgery nurses desk Discharge Orders/Prescriptions Prescriptions: New hydrocodone-acetaminophen 5-325 mg tablet 1 tab PO Q8H 5 Days Qty: 15 0RF amoxicillin-pot clavulanate [Augmentin] 500-125 mg tablet 1 tab PO Q8H 5 Days Qty: 15 0RF No Action lamotrigine [Lamictal] 200 MG tablet 300 mg PO DAILY quetiapine [Seroquel XR] 400 mg Tablet Extended Release 24 Hr 400 mg PO QPM Referrals / Follow Up: Nadege Toure MD [Primary Care Provider] - Purnima Morales PA [Med Staff - [facility] [place] [facility]] - 07/09/22 11:30 am Disposition Discharge Orders: Discharge Patient (Routine); Ordered 04/17/22 Ordered By: Dr. Mariella Gallardo
--- NOTE | 2022-04-17 14:16 | PCM.PN.BLA ---
Progress Note patient doing well wants to go home d/c to home
[2022-04-17 14:21] VITALS: BP 115/71; PULSE 101; RESP 14; TEMP 37.3; O2SAT 100
--- NOTE | 2022-04-17 18:54 | DS.PCM_ITS ---
Discharge Summary Date of Admission: 04/15/22 Date of Discharge: 04/17/22 Summary: 47 y/o WF who presented with abdominal pain. Findings in [facility] ED reveals possible perforated appendicitis. However, upon being brought to OR for laparoscopic appendectomy, patient was noted to have cardiac arrhythmia. Therefore surgery was cancelled. Internal medicine and cardiology was consulted. No evidence of ischemia. Patient was prescribed a beta manohar and amiodarone by package delivery room service runner. Surgery proceeded without cardiac incident. Findings in surgery - perforated appendicitis with generalized peritonitis. Appendectomy performed. Intraabdominal drains placed - one in the right colic gutter and one in the pelvis. Patient was continued on IV Zosyn, until WBC normalized. Patient discharged on POD#2, tolerating regular diet, afebrile, normal WBC. She will be discharged on pain medications and oral antibiotics. Internal medicine has prescribed the cardiology medications and patient will follow up with her PCP for this. She will follow up as an outpatient in the surgery clinic for determination of removal of drains. Meaningful Use Info Meaningful Use Diagnoses (Choose all that apply): None applicable Discharge Plan Admission Admit Date/Time: 04/15/22 19:28 Primary Reason for Your Visit: acute appendicitis with perforation Attending Provider: Mariella Gallardo Primary Care Provider: Nadege Toure Consulting Providers: Khoa Teresa ; Khris Harris Instructions Additional Instructions / Restrictions: Recommended pain control regimen - May take 600 mg ibuprofen (Motrin) and then in 3-4 hours, may take 650 mg acetaminophen (Tylenol), then in 3-4 hours may take 600 mg ibuprofen, then in 3- 4 hours may take 650 mg acetaminophen and so on for 2-3 days May take narcotic pain medication for pain that is not controlled by above and at night for comfort through the night Leave dressings in place May take shower, cover drain site with towel or other such covering to prevent from getting wet. Empty drains and record outputs as shown by the nursing staff. Do not soak - no tub baths/swimming No lifting/pushing/pulling greater than 10 pounds for a month. Stay on liquid/soup diet for a couple of days, then advance to regular diet as tolerated, drink plenty of fluids. Avoid carbonated beverages for a few days as this will cause abdominal bloating and thus discomfort after our surgery. Please call my office for an appointment to see Luanne Townsend PA-C on 2022. Office number is If any questions, please call my office at and ask the mat cleaning machine operator for the general surgery nurses desk Discharge Orders/Prescriptions Prescriptions: New hydrocodone-acetaminophen 5-325 mg tablet 1 tab PO Q8H 5 Days Qty: 15 0RF amoxicillin-pot clavulanate [Augmentin] 500-125 mg tablet 1 tab PO Q8H 5 Days Qty: 15 0RF metoprolol tartrate 25 mg Tablet 25 mg PO BID 30 Days Qty: 60 0RF Rx Instructions: Hold for heart less than 60 or systolic blood pressure less than 100 mmHg. Continued lamotrigine [Lamictal] 200 MG tablet 300 mg PO DAILY quetiapine [Seroquel XR] 400 mg Tablet Extended Release 24 Hr 400 mg PO QPM Referrals / Follow Up: Nadege Toure MD [Primary Care Provider] - Purnima Morales PA [Med Staff - [facility]] - 07/09/22 11:30 am Disposition Disposition (needs filled in before D/C Order can be placed): Home, Self Care
== END 2022-04-17 17:43 | disposition home or self-care (01) | DRG 339 ==
LOC: ED 03:30 → SDC 03:40 → ACINP 04:43 → PCU 05:21 → SDC 04-16 08:35 → PCU 04-16 08:35
PROVIDERS: Anesthesiology; Hospitalist; Internal Medicine; Admitting Provider Surgery; Emergency Provider Emergency Medicine; PCP Family Medicine; Visit Provider Surgery
PROC: 0DTJ4ZZ Resection of Appendix, Percutaneous Endoscopic Approach (ICD-10-PCS; CPT 44970; principal; 2022-04-15 15:25)
DX: K35.32 Acute appendicitis with perforation, localized peritonitis, and gangrene, without abscess (principal); K56.7 Ileus, unspecified; E83.39 Other disorders of phosphorus metabolism; F31.9 Bipolar disorder, unspecified; F17.290 Nicotine dependence, other tobacco product, uncomplicated; F12.90 Cannabis use, unspecified, uncomplicated; I49.3 Ventricular premature depolarization; Z79.899 Other long term (current) drug therapy; Z53.09 Procedure and treatment not carried out because of other contraindication
CPT/HCPCS: 36415; 74176; 80048; 80076; 80307; 81001; 83690; 83735; 84100; 84443; 84484; 84703; 85025; 88304; 93005; 93306; 94668; 99252; 99284; J7030; J7040; J7050; J7120; A4216; G0463; J2405; J3475

== ENCOUNTER 2022-04-19 09:38 | Emergency (ER) | payer BC, OTHER, SELFPAY ==
[2022-04-19 09:38] VITALS: BP 112/66; PULSE 68; RESP 16; TEMP 36.1; O2SAT 100; BMI 27.4
--- NOTE | 2022-04-19 10:00 | ED.VIS.GI ---
HPI HPI - GI History of Present Illness Chief Complaint: Abd Pain Narrative Narrative: 47-year-old female presenting with worsening abdominal pain. Patient presented on 04/15/2022 with abdominal pain. She was ultimately diagnosed with a ruptured appendicitis. Surgery was delayed because the patient had PVCs and nonsustained V. tach while in the OR. Cardiac consult was obtained. Dr. Teresa had a echocardiogram done and since this was normal patient was put on amiodarone and beta-manohar through surgery. Patient was placed on Toprol 25 mg p.o. twice daily. Patient states that overnight she had increasing pain in the right upper quadrant and epigastrium. She also notes that she has increased drainage from her surgical drains. She states that #1 has put out 90 the whole day yesterday but is already put out 60 today. States drain #2 put out 60 yesterday all day and today is already put out 30. She states that the color of the fluid is changed from a yellowish color to more of a red color. She states she noted a clot in her drain as well. Patient denies fever. She denies nausea or vomiting. She states her last bowel movement was yesterday. She states she only goes once a day typically. She did call Dr. Gallardo's office and the nurse sent her to the emergency room. [facility] Medical History Abdominal pain Abnormal CT scan, gastrointestinal tract Bipolar disorder Tonsillectomy planned Home Medications lamotrigine 200 mg tablet (Lamictal) 300 mg PO DAILY 01/02/17 [History Last Taken Unknown] quetiapine 400 mg tablet,extended release 24 hr (Seroquel XR) 400 mg PO QPM 04/15/22 [History Last Taken 04/14/22 18:00] amoxicillin 500 mg-potassium clavulanate 125 mg tablet (Augmentin) 1 tab PO Q8H 5 days #15 tabs 04/17/22 [Rx Last Taken Unknown] hydrocodone-acetaminophen 5-325mg 5mg-325mg 1 tab PO Q8H 5 days #15 tabs 04/17/22 [Rx Last Taken Unknown] metoprolol tartrate 25 mg tablet 25 mg PO BID 30 days #60 tabs 04/17/22 [Rx Last Taken Unknown] bisacodyl 5 mg tablet,delayed release (Alophen (bisacodyl)) 5 mg PO QHS PRN constipation 2 days #2 tabs 04/19/22 [Rx Last Taken Unknown] Allergy/AdvReac Type Severity Reaction Status Date / Time hydromorphone [From Dilaudid] AdvReac Other Verified 04/19/22 09:42 Surgical History (Updated 04/16/22 @ 11:[address] Mariella Gallardo MD) History of placement of ear tubes Status post laparoscopic appendectomy Social History Smoking Status: Current every day smoker tobacco type: e-cigarettes and smokeless tobacco ROS ROS ED Constitutional Constitutional ED: Denies chills, fever(s) or sweats Eyes Eyes: Denies blurry vision or change in vision ENT ENT ED: Denies ear pain or sore throat Cardiovascular Cardiovascular: Denies chest pain, palpitations or racing heartbeat Respiratory/Chest Respiratory/Chest: Denies cough, dyspnea or sputum Gastrointestinal Gastrointestinal: Reports abdominal pain; Denies constipation, diarrhea, nausea or vomiting Genitourinary Genitourinary ED: Denies dysuria, hematuria or urinary frequency Musculoskeletal Musculoskeletal: Denies arthralgias, myalgias or neck pain Integumentary Denies abscess, Abrasions or rash Neurologic Neurologic: Denies headache(s), paresthesias or weakness Psychiatric Psychiatric: Denies anxiety, depression, suicidal ideation or suicidal thoughts Endocrine Endocrinology: Denies polydipsia or polyuria EXAM Physical Exam Const Vital Signs: 04/19/22 09:38 04/19/22 11:35 Temperature 96.9 F L 98.2 F Temperature Source Temporal Temporal Pulse Rate 68 77 Respiratory Rate 16 15 Blood Pressure 112/66 130/80 H Blood Pressure Mean 81 96 Pulse Ox 100 99 Oxygen Delivery Method Room Air Room Air Positive well nourished General Appearance ED: NAD; Negative for pallor HEENT Reports moist mucous membranes atraumatic Eyes PERRL and EOMs intact bilaterally Resp normal respiratory effort and clear to auscultation bilaterally Effort and Inspection: Negative for respiratory distress Auscultation: Negative for rales, rhonchi or wheezes Cardio regular rate and regular rhythm GI Palpation: tender epigastric and RLQ Narrative: Surgical drains x2. Serosanguineous fluid in each. Neuro CN's II-XII intact bilaterally Sensorium / Orientation: alert Psych mental status grossly normal Skin General Skin Exam: Negative for jaundice or pallor MDM MDM MDM Narrative Medical decision making narrative: 47-year-old female postoperative from appendectomy with concern for new abdominal pain in the right upper quadrant and right epigastrium. Patient states her drains are now draining more of a serosanguineous fluid more so than a yellow drainage. Patient medicated with morphine and Zofran. CBC was obtained to assess white blood cell count, hemoglobin, differential. This is ultimately normal. CMP to assess liver function, renal function, electrolytes and this is all within normal limits. Lipase is normal at 35. Urinalysis is negative. Although her blood work is reassuring I spoke with Dr. Florez who recommended a CT and this was performed. CT scan results are below. There is concern for possible abscess formation. Reviewed with surgery and she does not believe these are abscesses. She believes to be expected findings. Patient well-appearing. Surgeon did come and assess the patient at the bedside. She shortened her drains. Reassured the patient. She recommended an enema for the patient because there is a lot of constipation on the CT. The patient refused. She did recommend Dulcolax suppositories for home and I wrote for these. Patient is currently on Augmentin and has pain medication. Patient return precautions were discussed. Impression: 1. Postop abdominal pain 2. Constipation Lab Data Attestation: I reviewed the patient's lab results. Labs: Laboratory Results - last 24 hr 04/19/22 04/19/22 04/19/22 10:00 10:00 11:30 WBC 8.5 RBC 4.08 L Hgb 11.7 L Hct 36.2 L MCV 88.7 MCH 28.7 MCHC 32.3 RDW Std Deviation 41.1 RDW Coeff of Radha 12.6 Plt Count 340 MPV 10.1 Immature Gran % (Auto) 2.500 H Neut % (Auto) 66.7 Lymph % (Auto) 19.4 [place] % (Auto) 8.5 Eos % (Auto) 1.8 Baso % (Auto) 1.1 H Absolute Neuts (auto) 5.7 Absolute Lymphs (auto) 1.66 Nucleated RBC % 0 Differential Comment SCANNED Atypical Lymphocytes 1+ Sodium 139 Potassium 3.5 Chloride 104 Carbon Dioxide 28.0 Anion Gap 7 BUN 4 L Creatinine 0.78 Estim Creat Clear Calc 81.96 Est GFR (MDRD) Af Amer 103 Est GFR (MDRD) Non-Af 85 BUN/Creatinine Ratio 5.1 L Glucose 115 H Calcium 8.8 Total Bilirubin 0.20 AST 13 L ALT 14 Alkaline Phosphatase 109 Total Protein 6.6 Albumin 2.5 L Globulin 4.1 Albumin/Globulin Ratio 0.6 L Lipase 35 L Urine Color Straw Urine Clarity Clear Urine pH 8.0 Ur Specific [place] 1.010 Urine Protein Negative Urine Glucose (UA) Normal Urine Ketones Negative Urine Occult Blood Negative Urine Nitrite Negative Urine Bilirubin Negative Urine Urobilinogen Normal Ur Leukocyte Esterase Negative Urine RBC 0 SEEN Urine WBC 0 SEEN Ur Squamous Epith Cells 0 SEEN Urine Bacteria 0 SEEN Urine Mucus 0 SEEN Radiography Diagnostic Testing: Clinical Impression(s) from Imaging Studies Abdomen/Pelvis CT 04/19/22 10:03 IMPRESSION: Peripherally enhancing postoperative fluid collections in the right lower quadrant and pelvis, concerning for peritonitis and abscess formation. Surgical drain tips in the right mid abdomen near the hepatic tip and in the left lower quadrant, away from the fluid collections. Mild pleural effusions. Mild distal ileal edema or decreased inflammation post appendectomy. Electronically Signed: Edie Radford MD at 11:06 EST Reading Location ID and State: [facility] / [place] Tel , Service support , Discharge Plan Triage Chief Complaint: Abd Pain ED Provider: Maurilio Mcdaniel Dx/Rx/DC Orders Instructions: ED Post Op Wound Check, Pain Prescriptions: New bisacodyl [Alophen (bisacodyl)] 5 mg tablet,delayed release (DR/EC) 5 mg PO QHS PRN (Reason: constipation) 2 Days Qty: 2 0RF No Action lamotrigine [Lamictal] 200 MG tablet 300 mg PO DAILY quetiapine [Seroquel XR] 400 mg Tablet Extended Release 24 Hr 400 mg PO QPM hydrocodone-acetaminophen 5-325 mg tablet 1 tab PO Q8H 5 Days Qty: 15 0RF amoxicillin-pot clavulanate [Augmentin] 500-125 mg tablet 1 tab PO Q8H 5 Days Qty: 15 0RF metoprolol tartrate 25 mg Tablet 25 mg PO BID 30 Days Qty: 60 0RF Rx Instructions: Hold for heart less than 60 or systolic blood pressure less than 100 mmHg. Primary Care Provider: Nadgee Toure Referrals: Nadege Toure MD [Primary Care Provider] - Mariella Gallardo MD [Med Staff - Active Staff] - 3-5 Days Disposition Disposition: Home, Self Care
--- NOTE | 2022-04-19 10:03 | CT_ITS ---
HISTORY: Abdominal pain. TECHNIQUE: Helically acquired images were obtained of the abdomen and pelvis after the intravenous administration of 100 mL Isovue-370. A radiation dose optimization technique was used for this scan. 405 images. COMPARISON: 04/15/2022. FINDINGS: LOWER CHEST: Mild bilateral pleural effusions with lower lobe atelectasis. BOWEL: Bowel nondilated. Mild right lower quadrant small bowel wall thickening, mildly decreased from prior. Interval appendectomy with suture at the cecum. LIVER/SPLEEN: No enhancing mass. GALLBLADDER/BILIARY TREE: Gallbladder present. PANCREAS/KIDNEYS/ADRENAL GLANDS: Unremarkable. VESSELS: No abdominal aortic aneurysm. Mild iliac atherosclerosis. PERITONEUM: Drainage catheter tips in the right mid abdomen near the tip of the liver and coiled with tip in the left lower quadrant. 2.3 x 2.8 cm right lower quadrant/pelvic fluid collection below the level of the suture. Probable fluid collection just below the suture, with limited evaluation due to unopacified fluid-filled small bowel loops. 4.2 x 6.2 cm peripherally enhancing fluid collection in the cul-de-sac extending from left to right. PELVIC ORGANS: Distended bladder. Tampon incidentally noted. ABDOMINAL WALL: Postoperative edema. BONES: Mild degenerative change. CT/Abdomen/Pelvis W IV Cont ONLY IMPRESSION: Peripherally enhancing postoperative fluid collections in the right lower quadrant and pelvis, concerning for peritonitis and abscess formation. Surgical drain tips in the right mid abdomen near the hepatic tip and in the left lower quadrant, away from the fluid collections. Mild pleural effusions. Mild distal ileal edema or decreased inflammation post appendectomy. Electronically Signed: Edie Radford MD at 11:06 EST ,
[2022-04-19] MEDS: 0.9% Normal Saline 1,000 ML 1000 ML IV (10:08)
[2022-04-19] MEDS: Ondansetron 4 MG/2 ML Vial IV (10:08)
[2022-04-19] MEDS: Morphine 4 MG/ML Syringe IV (10:09)
[2022-04-19 10:13] LABS: Absolute Lymphocyte Count 1.66 X10^3/uL (0.83-4.51); Absolute Neutrophil Count 5.7 X10^3/uL (2.0-7.7); Basophil# 0.09 X10^3/uL; Basophil% 1.1 % (0-1); Eosinophil# 0.15 X10^3/uL; Eosinophils% 1.8 % (0-5); Hematocrit 36.2 % (37-47); Hemoglobin 11.7 g/dL (12.0-15.0); Lymphocyte # 1.66 X10^3/ul (0.83-4.51); Lymphocyte % 19.4 % (19-41); Mean Corp Hgb Conc 32.3 g/dL (32-36); Mean Corpuscular Hgb 28.7 pg (27.0-32.0); Mean Corpuscular Volume 88.7 fL (81-99); Mean Platelet Vol. 10.1 fl (6.2-12.0); Monocyte# 0.73 X10^3/uL; Monocyte% 8.5 % (0-10); NRBC Flagged by Analyzer 0 % (0-5); Neutrophil % 66.7 % (47-70); POSITIVE MORPHOLOGY YES; Platelet Count 340 K/mm3 (150-450); RBC Distribution Width CV 12.6 % (11.6-14.6); RBC Distribution Width SD 41.1 fl (35.1-43.9); Red Blood Count 4.08 M/mm3 (4.2-5.4); White Blood Count 8.5 K/mm3 (4.4-11.0)
[2022-04-19 10:14] LABS: Differential Indicated SCAN CRITERIA MET
[2022-04-19 10:23] LABS: ALB/GLOB Ratio 0.6 RATIO (0.9-2.4); AST(SGOT) 13 U/L (15-37); Alanine Aminotransfer ALT/SGPT 14 U/L (13-56); Albumin, Serum 2.5 g/dL (3.2-5.0); Alkaline Phosphatase 109 U/L (45-117); Anion Gap 7 (5-15); BUN 4 mg/dL (7-18); BUN/Creat Ratio 5.1 RATIO (10-20); Calcium,Total 8.8 mg/dL (8.5-10.1); Chloride 104 mmol/L (98-107); Creatinine, Serum 0.78 mg/dL (0.55-1.02); EST Glomerular Filtration Rate 85 mL/min (>60); Est Glom Filt Rate - Afr Amer 103 mL/min (>60); Estimated Creatinine Clearance 81.96 ml/min; Globulin 4.1 g/dL (2.2-4.2); Glucose 115 mg/dL (74-106); Lipase 35 U/L (73-393); Potassium 3.5 mmol/L (3.5-5.1); Protein, Total 6.6 g/dL (6.4-8.2); Sodium Level 139 mmol/L (136-145)
[2022-04-19 10:44] LABS: Atypical Lymphocyte 1+ %; Differential Comment SCANNED
[2022-04-19 11:35] VITALS: BP 130/80; PULSE 77; RESP 15; TEMP 36.8; O2SAT 99
[2022-04-19 11:39] LABS: Bacteria 0 SEEN /hpf (None Seen); Mucous, Urine 0 SEEN /hpf (<or=2+); Red Blood Cells-Urine 0 SEEN /hpf (0-5); Squamous Epithelial Cells - UA 0 SEEN /hpf (5-10); White Blood Cells 0 SEEN /hpf (0-5)
[2022-04-19 11:42] LABS: Color, Urine Straw (Yellow); Glucose, Dipstick Normal (Normal); Ketone-Dipstick Negative (Negative); Leukocyte Esterase-Dipstick Negative /ul (Negative); Nitrite-Dipstick Negative (Negative); Occult Blood-Urine Negative /ul (Negative); Protein-Dipstick Negative (Negative); Urine Bilirubin Dipstick Negative (Negative); Urine Clarity Clear (Clear); Urine Urobilinogen Normal (Normal)
[2022-04-19 14:21] VITALS: BP 128/78; PULSE 80; RESP 16; O2SAT 99
--- NOTE | 2022-04-19 15:05 | EX.PCM.CON.S ---
Assessment & Plan Assessment/Plan (1) Status post laparoscopic appendectomy: (2) Abnormal CT scan, gastrointestinal tract: PLAN: Plan Did review CT abdomen pelvis with the patient and her mom. Patient does have smaller fluid collections in the pelvis question of the drains could possibly be in that location if her bladder was not so distended. Patient did state that she was able to pee a lot after the CAT scan UA does not show any evidence of UTI and patient is also on Augmentin. Patient's labs are within normal limits no fevers or chills and patient's pain was not in the lower pelvis it was occasionally in the right upper quadrant unsure what the cause was wonder if it could just be due to constipation as she still does have quite a bit of stool there and seemed like this pain is not constant and may have been low but worse with movement. Recommended some rectal Dulcolax suppositories to be little gentler than fiber or oral laxatives due to her just having surgery and having the perforated appendicitis. Patient does have a follow-up appoint with Dr. Gallardo on Friday. Discussed with patient that she would likely get a repeat CAT scan prior to getting her drain was removed and also did have contacted Dr. Gallardo and she was in agreement with plan. Lyndsay Florez M.D. Pager: [phone] [facility] [address] [place] [address], [facility], [address] [place] [address] Office: [phone] HPI Consult Data Date of Consult: 04/19/22 HPI Narrative HPI Narrative: CHECO [place], is a 47 F who presents due to right upper quadrant pain and patient was also little concerned that the JPs had glove turner and former automatic like a light pink color after a clot had been released from the tubing. Patient states that she has been doing well and started to get more right upper quadrant pain seems to be occasionally worse with some movements. Patient states she did have a normal bowel movement yesterday. Patient is status post laparoscopic appendectomy for perforated appendicitis with [address] from the suprapubic port site by Dr. Gallardo 04/15 just released from the hospital 04/17. Patient has been tolerating diet. Patient states she has been urinating well denies any lower abdominal pain. Patient CT abdomen pelvis which showed distended bladder patient did urinate a lot after CAT scan, small fluid collections were called in the pelvis which were not where the drains are located however they were less than 5 cm in size, patient also had a bit of stool in the right colon. Patient is currently on Augmentin as well and denies any lower abdominal pain. Labs were within normal limits. [facility] Medical History Abdominal pain Abnormal CT scan, gastrointestinal tract Bipolar disorder Tonsillectomy planned Home Medications lamotrigine 200 mg tablet (Lamictal) 300 mg PO DAILY 01/02/17 [History Last Taken Unknown] quetiapine 400 mg tablet,extended release 24 hr (Seroquel XR) 400 mg PO QPM 04/15/22 [History Last Taken 04/14/22 18:00] amoxicillin 500 mg-potassium clavulanate 125 mg tablet (Augmentin) 1 tab PO Q8H 5 days #15 tabs 04/17/22 [Rx Last Taken Unknown] hydrocodone-acetaminophen 5-325mg 5mg-325mg 1 tab PO Q8H 5 days #15 tabs 04/17/22 [Rx Last Taken Unknown] metoprolol tartrate 25 mg tablet 25 mg PO BID 30 days #60 tabs 04/17/22 [Rx Last Taken Unknown] bisacodyl 5 mg tablet,delayed release (Alophen (bisacodyl)) 5 mg PO QHS PRN constipation 2 days #2 tabs 04/19/22 [Rx Last Taken Unknown] Allergy/AdvReac Type Severity Reaction Status Date / Time hydromorphone [From Dilaudid] AdvReac Other Verified 04/19/22 09:42 Surgical History (Updated 04/16/22 @ 11:[address] Mariella Gallardo MD) History of placement of ear tubes Status post laparoscopic appendectomy Social History Smoking Status: Current every day smoker tobacco type: e-cigarettes and smokeless tobacco ROS Constitutional Constitutional: Denies chills or fever(s) Eyes Eyes: Denies loss of central vision ENT HEENT: Denies hearing loss Cardiovascular Cardiovascular: Denies chest pain Respiratory/Chest Respiratory/Chest: Denies cough Gastrointestinal Gastrointestinal: Reports abdominal pain; Denies constipation, diarrhea, nausea or vomiting Genitourinary Genitourinary: Denies difficulty urinating or dysuria Musculoskeletal Musculoskeletal: Denies joint pain Integumentary Integumentary: Denies rash Neurologic Neurologic: Denies numbness Psychiatric Psychiatric: Denies depression Endocrine Endocrinology: Denies palpitations Hematologic/Lymphatic Hematologic/Lymphatic: Denies easy bleeding Physical Exam Const alert, oriented x3, no apparent distress and healthy appearing HEENT normocephalic Eyes conjunctivae normal Neck supple Resp normal respiratory effort Cardio Rate: regular rate GI soft to palpation and non-tender; Negative for non-distended GI Narrative: [address] draining serosanguineous fluid Inspection: Negative for abdominal distention Lab / Micro Data Result Diagrams: 04/19/22 10:00 04/19/22 10:00 Labs: Laboratory Results - last 24 hr 04/19/22 10:00: WBC 8.5, RBC 4.08 L, Hgb 11.7 L, Hct 36.2 L, MCV 88.7, MCH 28.7, MCHC 32.3, RDW Std Deviation 41.1, RDW Coeff of Radha 12.6, Plt Count 340, MPV 10.1, Immature Gran % (Auto) 2.500 H, Neut % (Auto) 66.7, Lymph % (Auto) 19.4, [place] % (Auto) 8.5, Eos % (Auto) 1.8, Baso % (Auto) 1.1 H, Absolute Neuts (auto) 5.7, Absolute Lymphs (auto) 1.66, Nucleated RBC % 0, Differential Comment SCANNED, Atypical Lymphocytes 1+ 04/19/22 10:00: Sodium 139, Potassium 3.5, Chloride 104, Carbon Dioxide 28.0, Anion Gap 7, BUN 4 L, Creatinine 0.78, Estim Creat Clear Calc 81.96, Est GFR (MDRD) Af Amer 103, Est GFR (MDRD) Non-Af 85, BUN/Creatinine Ratio 5.1 L, Glucose 115 H, Calcium 8.8, Total Bilirubin 0.20, AST 13 L, ALT 14, Alkaline Phosphatase 109, Total Protein 6.6, Albumin 2.5 L, Globulin 4.1, Albumin/Globulin Ratio 0.6 L, Lipase 35 L 04/19/22 11:30: Urine Color Straw, Urine Clarity Clear, Urine pH 8.0, Ur Specific [place] 1.010, Urine Protein Negative, Urine Glucose (UA) Normal, Urine Ketones Negative, Urine Occult Blood Negative, Urine Nitrite Negative, Urine Bilirubin Negative, Urine Urobilinogen Normal, Ur Leukocyte Esterase Negative, Urine RBC 0 SEEN, Urine WBC 0 SEEN, Ur Squamous Epith Cells 0 SEEN, Urine Bacteria 0 SEEN, Urine Mucus 0 SEEN Radiology Impression Abdomen/Pelvis CT 04/19/22 10:03 IMPRESSION: Peripherally enhancing postoperative fluid collections in the right lower quadrant and pelvis, concerning for peritonitis and abscess formation. Surgical drain tips in the right mid abdomen near the hepatic tip and in the left lower quadrant, away from the fluid collections. Mild pleural effusions. Mild distal ileal edema or decreased inflammation post appendectomy. Electronically Signed: Edie Radford MD at 11:06 EST , Charges/Coding Visit Charges Office Visits / Consults: [id number] OP Consult L3
== END 2022-04-19 14:23 | disposition home or self-care (01) ==
PROVIDERS: Emergency Provider Student in an Organized Health Care Education/Training Program; PCP Family Medicine; Visit Provider Student in an Organized Health Care Education/Training Program
DX: K59.00 Constipation, unspecified (principal); F17.290 Nicotine dependence, other tobacco product, uncomplicated; F17.220 Nicotine dependence, chewing tobacco, uncomplicated; Z90.49 Acquired absence of other specified parts of digestive tract; R10.11 Right upper quadrant pain; G89.18 Other acute postprocedural pain
CPT/HCPCS: 74177; 80053; 81001; 83690; 85025; 96361; 96374; 96375; 99285; J7030; Q9967; J2405

== ENCOUNTER 2022-05-01 08:57 | Inpatient (IN) | payer BC, OTHER, SELFPAY ==
[2022-05-01] VITALS (19 sets, daily range): BP systolic 78–138; BP diastolic 34–85; PULSE 76–128; RESP 10–23; TEMP 36.9–38.9; O2SAT 92–100; BMI 26.4; BMI 26.3
--- NOTE | 2022-05-01 09:26 | ED.VIS.GI ---
HPI HPI - GI History of Present Illness Chief Complaint: Abd Pain Informant: patient Narrative Narrative: Patient had appendectomy about 2 weeks ago, it was fairly complicated and ruptured according to the patient. She had drains postoperatively that were removed 2 days ago, she was started on an antibiotic yesterday after a CT on the same day that the drains were removed showed an abscess in her pelvis. She is scheduled for CT-guided drainage 2 days from now at a [facility] hospital in [place]. She states she had a low-grade temperature yesterday, not today it was 102, and she is having increasing pain in her pelvis where the abscess is. She tried to call her surgeon but was not able to get a response. She denies any other new symptoms. [facility] Medical History Abdominal pain Abnormal CT scan, gastrointestinal tract Bipolar disorder Dysrhythmia Tonsillectomy planned Home Medications lamotrigine 200 mg tablet (Lamictal) 300 mg PO DAILY 01/02/17 [History Last Taken Unknown] quetiapine 400 mg tablet,extended release 24 hr (Seroquel XR) 400 mg PO QPM 04/15/22 [History Last Taken 04/14/22 18:00] amoxicillin 500 mg-potassium clavulanate 125 mg tablet (Augmentin) 1 tab PO Q8H 5 days #15 tabs 04/17/22 [Rx Last Taken Unknown] metoprolol tartrate 25 mg tablet 25 mg PO BID 30 days #60 tabs 04/17/22 [Rx Last Taken Unknown] bisacodyl 5 mg tablet,delayed release (Alophen (bisacodyl)) 5 mg PO QHS PRN constipation 2 days #2 tabs 04/19/22 [Rx Last Taken Unknown] Allergy/AdvReac Type Severity Reaction Status Date / Time hydromorphone [From Dilaudid] AdvReac Other Verified 05/01/22 08:59 Surgical History (Updated 05/01/22 @ 09:15 by Kaykay Matta) History of placement of ear tubes Hx of appendectomy Status post laparoscopic appendectomy Social History Smoking Status: Current every day smoker tobacco type: e-cigarettes and smokeless tobacco ROS ROS ED Constitutional Constitutional ED: Reports chills and fever(s) Eyes Eyes: Denies change in vision or diplopia ENT ENT ED: Denies rhinorrhea or sore throat Cardiovascular Cardiovascular: Denies chest pain or palpitations Respiratory/Chest Respiratory/Chest: Denies cough or dyspnea Gastrointestinal Gastrointestinal: Reports abdominal pain; Denies diarrhea, nausea or vomiting Genitourinary Genitourinary ED: Denies dysuria or hematuria Musculoskeletal Musculoskeletal: Denies back pain or neck pain Integumentary Denies abscess or rash Neurologic Neurologic: Denies headache(s), paresthesias or weakness Psychiatric Psychiatric: Denies anxiety or suicidal thoughts EXAM Physical Exam Const Vital Signs: 05/01/22 08:59 05/01/22 09:18 05/01/22 11:03 Temperature 98.9 F 100.3 F H 98.9 F Temperature Source Oral Oral Temporal Pulse Rate 108 H 98 Pulse Rate [1 (Initial Baseline)] Pulse Rate [10] Pulse Rate [2] Pulse Rate [3] Pulse Rate [4] Pulse Rate [5] Pulse Rate [6] Pulse Rate [7] Pulse Rate [8] Pulse Rate [9] Respiratory Rate 16 16 Respiratory Rate [1 (Initial Baseline)] Respiratory Rate [10] Respiratory Rate [2] Respiratory Rate [3] Respiratory Rate [4] Respiratory Rate [5] Respiratory Rate [6] Respiratory Rate [7] Respiratory Rate [8] Respiratory Rate [9] Blood Pressure 108/69 113/68 Blood Pressure [1 (Initial Baseline)] Blood Pressure [10] Blood Pressure [2] Blood Pressure [3] Blood Pressure [4] Blood Pressure [5] Blood Pressure [6] Blood Pressure [7] Blood Pressure [8] Blood Pressure [9] Blood Pressure Mean 82 83 Pulse Ox 97 100 Oxygen Delivery Method Room Air Room Air Oxygen Delivery Method [1 (Initial Baseline)] Oxygen Delivery Method [10] Oxygen Delivery Method [2] Oxygen Delivery Method [3] Oxygen Delivery Method [4] Oxygen Delivery Method [5] Oxygen Delivery Method [6] Oxygen Delivery Method [7] Oxygen Delivery Method [8] Oxygen Delivery Method [9] 05/01/22 12:01 05/01/22 12:28 05/01/22 13:19 Temperature Temperature Source Pulse Rate 109 H Pulse Rate [1 (Initial Baseline)] 115 H Pulse Rate [10] 126 H Pulse Rate [2] 115 H Pulse Rate [3] 115 H Pulse Rate [4] 116 H Pulse Rate [5] 112 H Pulse Rate [6] 115 H Pulse Rate [7] 121 H Pulse Rate [8] 116 H Pulse Rate [9] 113 H Respiratory Rate 18 Respiratory Rate [1 (Initial Baseline)] 16 Respiratory Rate [10] 16 Respiratory Rate [2] 19 H Respiratory Rate [3] 20 H Respiratory Rate [4] 19 H Respiratory Rate [5] 15 Respiratory Rate [6] 23 H Respiratory Rate [7] 15 Respiratory Rate [8] 12 Respiratory Rate [9] 10 L Blood Pressure 138/75 H Blood Pressure [1 (Initial Baseline)] 121/69 H Blood Pressure [10] 94/34 L Blood Pressure [2] 91/38 L Blood Pressure [3] 122/83 H Blood Pressure [4] 116/40 L Blood Pressure [5] 82/61 L Blood Pressure [6] 99/47 L Blood Pressure [7] 78/57 L Blood Pressure [8] 91/63 Blood Pressure [9] 113/85 H Blood Pressure Mean Pulse Ox 100 Oxygen Delivery Method Room Air Room Air Oxygen Delivery Method [1 (Initial Baseline)] Room Air Oxygen Delivery Method [10] Room Air Oxygen Delivery Method [2] Room Air Oxygen Delivery Method [3] Room Air Oxygen Delivery Method [4] Room Air Oxygen Delivery Method [5] Room Air Oxygen Delivery Method [6] Room Air Oxygen Delivery Method [7] Room Air Oxygen Delivery Method [8] Room Air Oxygen Delivery Method [9] Room Air 05/01/22 13:24 05/01/22 13:30 05/01/22 13:35 Temperature Temperature Source Pulse Rate Pulse Rate [1 (Initial Baseline)] Pulse Rate [10] Pulse Rate [2] Pulse Rate [3] Pulse Rate [4] Pulse Rate [5] Pulse Rate [6] Pulse Rate [7] Pulse Rate [8] Pulse Rate [9] Respiratory Rate Respiratory Rate [1 (Initial Baseline)] Respiratory Rate [10] Respiratory Rate [2] Respiratory Rate [3] Respiratory Rate [4] Respiratory Rate [5] Respiratory Rate [6] Respiratory Rate [7] Respiratory Rate [8] Respiratory Rate [9] Blood Pressure Blood Pressure [1 (Initial Baseline)] Blood Pressure [10] Blood Pressure [2] Blood Pressure [3] Blood Pressure [4] Blood Pressure [5] Blood Pressure [6] Blood Pressure [7] Blood Pressure [8] Blood Pressure [9] Blood Pressure Mean Pulse Ox Oxygen Delivery Method Room Air Room Air Room Air Oxygen Delivery Method [1 (Initial Baseline)] Oxygen Delivery Method [10] Oxygen Delivery Method [2] Oxygen Delivery Method [3] Oxygen Delivery Method [4] Oxygen Delivery Method [5] Oxygen Delivery Method [6] Oxygen Delivery Method [7] Oxygen Delivery Method [8] Oxygen Delivery Method [9] 05/01/22 14:05 05/01/22 14:20 Temperature Temperature Source Pulse Rate Pulse Rate [1 (Initial Baseline)] Pulse Rate [10] Pulse Rate [2] Pulse Rate [3] Pulse Rate [4] Pulse Rate [5] Pulse Rate [6] Pulse Rate [7] Pulse Rate [8] Pulse Rate [9] Respiratory Rate Respiratory Rate [1 (Initial Baseline)] Respiratory Rate [10] Respiratory Rate [2] Respiratory Rate [3] Respiratory Rate [4] Respiratory Rate [5] Respiratory Rate [6] Respiratory Rate [7] Respiratory Rate [8] Respiratory Rate [9] Blood Pressure Blood Pressure [1 (Initial Baseline)] Blood Pressure [10] Blood Pressure [2] Blood Pressure [3] Blood Pressure [4] Blood Pressure [5] Blood Pressure [6] Blood Pressure [7] Blood Pressure [8] Blood Pressure [9] Blood Pressure Mean Pulse Ox Oxygen Delivery Method Room Air Room Air Oxygen Delivery Method [1 (Initial Baseline)] Oxygen Delivery Method [10] Oxygen Delivery Method [2] Oxygen Delivery Method [3] Oxygen Delivery Method [4] Oxygen Delivery Method [5] Oxygen Delivery Method [6] Oxygen Delivery Method [7] Oxygen Delivery Method [8] Oxygen Delivery Method [9] Positive well nourished and well developed General Appearance ED: well developed and NAD HEENT Reports moist mucous membranes normocephalic and atraumatic Eyes PERRL and EOMs intact bilaterally Neck full ROM and supple Resp normal respiratory effort and clear to auscultation bilaterally Cardio regular rate, regular rhythm and no murmurs GI non-distended GI Narrative: Tender throughout the pelvis, no guarding or rebound. There is a dressing over the drain site, it appears fairly benign, there is a scant amount of discharge on the dressing, but no gross infection there. Auscultation: normoactive bowel sounds Palpation: soft Back/Spine no CVA tenderness General Back: other FROM Extremity normal to inspection General Extremety ED: Negative for edema, pulses abnormal or tenderness General Extremity: Negative for edema or pulses abnormal Neuro oriented x3, CN's II-XII intact bilaterally and no sensory deficits noted Sensorium / Orientation: awake and alert Motor Exam: strength 5/5 throughout Skin no rashes or lesions noted and no wounds MDM MDM MDM Narrative Medical decision making narrative: I was able to discuss with Dr. Gallardo, she is out of town and not available to assist with patient care right now, states that was the soonest she could get the patient into an interventional radiologist within the [facility] system. Apparently the patient had CT imaging 2 days ago, but it was not in our health system, so we are not able to see the images. Discussed with our interventional radiologist, who recommends repeating imaging before we attempt any procedures which I think is reasonable under the circumstances. In the meantime I did a septic work-up with a lactic acid, blood work, blood cultures, prior to starting her on Zosyn IV and treating her with analgesics. She does have a leukocytosis, lactic acid is within normal limits and the rest of her labs are noted and unremarkable. I discussed with interventional radiology Dr. Henry, he advises repeating CT pelvis since we do not have images prior to 2 weeks ago, this did show enlarging pelvic abscess, and she was taken to the interventional radiology suite for procedure to drain the abscess emergently. My interpretation of the CT agrees with that of the radiologist. Interventional radiology was able to drain her abscess it was large, 1500 cc of purulent material. Drains were placed. Discussed with Dr. Adams with surgery, who is the on-call covering for Dr. Gallardo right now, for admission. He agrees. Patient given Zosyn earlier as above. Lab Data Attestation: I reviewed the patient's lab results. Labs: Laboratory Results - last 24 hr 05/01/22 05/01/22 05/01/22 09:25 09:25 10:15 WBC 14.2 H RBC 3.87 L Hgb 11.1 L Hct 33.7 L MCV 87.1 MCH 28.7 MCHC 32.9 RDW Std Deviation 39.9 RDW Coeff of Radha 12.6 Plt Count 617 H MPV 9.9 Immature Gran % (Auto) 0.800 Neut % (Auto) 76.6 H Lymph % (Auto) 10.4 L Sunflower % (Auto) 11.7 H Eos % (Auto) 0.1 Baso % (Auto) 0.4 Absolute Neuts (auto) 10.9 H Absolute Lymphs (auto) 1.47 Nucleated RBC % 0 Differential Comment SCANNED Diff Path Review May foll PT INR APTT Sodium 130 L Potassium 3.9 Chloride 97 L Carbon Dioxide 27.0 Anion Gap 6 BUN 9 Creatinine 0.83 Estim Creat Clear Calc 77.02 Est GFR (MDRD) Af Amer 95 Est GFR (MDRD) Non-Af 79 BUN/Creatinine Ratio 10.8 Glucose 122 H Lactic Acid 0.7 Calcium 8.9 05/01/22 11:12 WBC RBC Hgb Hct MCV MCH MCHC RDW Std Deviation RDW Coeff of Radha Plt Count MPV Immature Gran % (Auto) Neut % (Auto) Lymph % (Auto) Sunflower % (Auto) Eos % (Auto) Baso % (Auto) Absolute Neuts (auto) Absolute Lymphs (auto) Nucleated RBC % Differential Comment Diff Path Review PT 17.6 H INR 1.5 APTT 42.2 H Sodium Potassium Chloride Carbon Dioxide Anion Gap BUN Creatinine Estim Creat Clear Calc Est GFR (MDRD) Af Amer Est GFR (MDRD) Non-Af BUN/Creatinine Ratio Glucose Lactic Acid Calcium Radiography Diagnostic Testing: Clinical Impression(s) from Imaging Studies Abscess Drainage CT 05/01/22 10:02 IMPRESSION: 1. CT directed drainage of a fluid collection using CT image guidance and image documentation as described. 2. Conscious Sedation protocol utilized with independent monitoring Electronically Signed: Deep Henry MD at 13:42 EST , Pelvis CT 05/01/22 10:14 IMPRESSION: Since prior study, there has been enlarging fluid collection in the cul-de-sac as well as both sides of the pelvis suggestive of enlarging pelvic abscess. Electronically Signed: Deep Henry MD at 11:19 EST , [facility] Lab Data Attestation: I reviewed the patient's lab results. Labs: Laboratory Results - last 24 hr 05/01/22 05/01/22 05/01/22 09:25 09:25 10:15 WBC 14.2 H RBC 3.87 L Hgb 11.1 L Hct 33.7 L MCV 87.1 MCH 28.7 MCHC 32.9 RDW Std Deviation 39.9 RDW Coeff of Radha 12.6 Plt Count 617 H MPV 9.9 Immature Gran % (Auto) 0.800 Neut % (Auto) 76.6 H Lymph % (Auto) 10.4 L Sunflower % (Auto) 11.7 H Eos % (Auto) 0.1 Baso % (Auto) 0.4 Absolute Neuts (auto) 10.9 H Absolute Lymphs (auto) 1.47 Nucleated RBC % 0 Differential Comment SCANNED Diff Path Review May foll PT INR APTT Sodium 130 L Potassium 3.9 Chloride 97 L Carbon Dioxide 27.0 Anion Gap 6 BUN 9 Creatinine 0.83 Estim Creat Clear Calc 77.02 Est GFR (MDRD) Af Amer 95 Est GFR (MDRD) Non-Af 79 BUN/Creatinine Ratio 10.8 Glucose 122 H Lactic Acid 0.7 Calcium 8.9 05/01/22 11:12 WBC RBC Hgb Hct MCV MCH MCHC RDW Std Deviation RDW Coeff of Radha Plt Count MPV Immature Gran % (Auto) Neut % (Auto) Lymph % (Auto) Sunflower % (Auto) Eos % (Auto) Baso % (Auto) Absolute Neuts (auto) Absolute Lymphs (auto) Nucleated RBC % Differential Comment Diff Path Review PT 17.6 H INR 1.5 APTT 42.2 H Sodium Potassium Chloride Carbon Dioxide Anion Gap BUN Creatinine Estim Creat Clear Calc Est GFR (MDRD) Af Amer Est GFR (MDRD) Non-Af BUN/Creatinine Ratio Glucose Lactic Acid Calcium Radiography Diagnostic Testing: Clinical Impression(s) from Imaging Studies Abscess Drainage CT 05/01/22 10:02 IMPRESSION: 1. CT directed drainage of a fluid collection using CT image guidance and image documentation as described. 2. Conscious Sedation protocol utilized with independent monitoring Electronically Signed: Deep Henry MD at 13:42 EST , Pelvis CT 05/01/22 10:14 IMPRESSION: Since prior study, there has been enlarging fluid collection in the cul-de-sac as well as both sides of the pelvis suggestive of enlarging pelvic abscess. Electronically Signed: Deep Henry MD at 11:19 EST , Discharge Plan Triage Chief Complaint: Abd Pain ED Provider: Tejas Licea Dx/Rx/DC Orders Clinical Impression: Intra-abdominal abscess Instructions: Shant Barraza Drain Tube Dc, Post Op Drain Emptying Steps, TRAM RN Procedural Sedation Prescriptions: No Action lamotrigine [Lamictal] 200 MG tablet 300 mg PO DAILY quetiapine [Seroquel XR] 400 mg Tablet Extended Release 24 Hr 400 mg PO QPM amoxicillin-pot clavulanate [Augmentin] 500-125 mg tablet 1 tab PO Q8H 5 Days Qty: 15 0RF metoprolol tartrate 25 mg Tablet 25 mg PO BID 30 Days Qty: 60 0RF Rx Instructions: Hold for heart less than 60 or systolic blood pressure less than 100 mmHg. bisacodyl [Alophen (bisacodyl)] 5 mg tablet,delayed release (DR/EC) 5 mg PO QHS PRN (Reason: constipation) 2 Days Qty: 2 0RF Primary Care Provider: Nadege Toure Referrals: Nadege Toure MD [Primary Care Provider] - Disposition Disposition: Acute Care Hospital [facility]
[2022-05-01 09:39] LABS: Absolute Lymphocyte Count 1.47 X10^3/uL (0.83-4.51); Absolute Neutrophil Count 10.9 X10^3/uL (2.0-7.7); Basophil# 0.06 X10^3/uL; Basophil% 0.4 % (0-1); Eosinophil# 0.02 X10^3/uL; Eosinophils% 0.1 % (0-5); Hematocrit 33.7 % (37-47); Hemoglobin 11.1 g/dL (12.0-15.0); Lymphocyte # 1.47 X10^3/ul (0.83-4.51); Lymphocyte % 10.4 % (19-41); Mean Corp Hgb Conc 32.9 g/dL (32-36); Mean Corpuscular Hgb 28.7 pg (27.0-32.0); Mean Corpuscular Volume 87.1 fL (81-99); Mean Platelet Vol. 9.9 fl (6.2-12.0); Monocyte# 1.66 X10^3/uL; Monocyte% 11.7 % (0-10); NRBC Flagged by Analyzer 0 % (0-5); Neutrophil # 10.86 X10^3/uL (2.7-7.7); Neutrophil % 76.6 % (47-70); POSITIVE DIFFERENTIAL YES; Platelet Count 617 K/mm3 (150-450); RBC Distribution Width CV 12.6 % (11.6-14.6); RBC Distribution Width SD 39.9 fl (35.1-43.9); Red Blood Count 3.87 M/mm3 (4.2-5.4); White Blood Count 14.2 K/mm3 (4.4-11.0)
[2022-05-01 09:41] LABS: Differential Indicated SCAN CRITERIA MET
[2022-05-01] MEDS: Morphine 4 MG/ML Syringe IV ×4 (09:49→21:56)
[2022-05-01] MEDS: 0.9% Normal Saline 1,000 ML 999 ML IV (09:49)
[2022-05-01 09:53] LABS: Anion Gap 6 (5-15); BUN 9 mg/dL (7-18); BUN/Creat Ratio 10.8 RATIO (10-20); Calcium,Total 8.9 mg/dL (8.5-10.1); Chloride 97 mmol/L (98-107); Creatinine, Serum 0.83 mg/dL (0.55-1.02); EST Glomerular Filtration Rate 79 mL/min (>60); Est Glom Filt Rate - Afr Amer 95 mL/min (>60); Estimated Creatinine Clearance 77.02 ml/min; Glucose 122 mg/dL (74-106); Potassium 3.9 mmol/L (3.5-5.1); Sodium Level 130 mmol/L (136-145)
--- NOTE | 2022-05-01 09:54 | NURSING ---
LEFT MESSAGE ON DR TALAVERA'S PHONE.
--- NOTE | 2022-05-01 10:02 | CT_ITS ---
PROCEDURE: CT DIRECTED ABSCESS DRAINAGE, PERITONEAL DATE OF EXAMINATION: 05/01/2022. INDICATION: Female, 47 years old. Pelvic abscess. PHYSICIAN: Deep Henry M.D. CONSENT: Written informed consent was obtained having explained the risks, benefits and alternatives in detail with the patient who accepted the risks and agreed to proceed. Laboratory review and clinical assessment was performed. CONSCIOUS SEDATION PROTOCOL: The Drugs used were: 4 mg. Versed, IV., and 100 mcg Fentanyl, IV. The sedation time was: 51 minutes. Conscious sedation was started at 12:25 PM and terminated at 1:16 PM. The conscious sedation protocol was independently monitored. RADIATION DOSAGE (If Supplied By Facility): CTDIvol = ( 18 ) mGy, DLP = ( 591.39 ) mGycm. Individualized dose optimization techniques were utilized. TECHNIQUE: CT sections were made through the abdomen and pelvis revealing an abscess the pelvis. The skin surface was prepped and draped in a sterile fashion. Puncture of this collection was performed initially with a 5 Welsh catheter and fluid was aspirated. 8 Welsh Drainage catheter was then inserted into the collection and formed into position. Additional fluid was aspirated for a total of approximately 150 cc of cloudy red fluid. The catheter was sutured into position to allow for continued drainage. Followup CT sections reveals good position of the catheter. CT/CT Guidance Abscess Drg w/Cath IMPRESSION: 1. CT directed drainage of a fluid collection using CT image guidance and image documentation as described. 2. Conscious Sedation protocol utilized with independent monitoring Electronically Signed: Deep Henry MD at 13:42 EST ,
--- NOTE | 2022-05-01 10:14 | CT_ITS ---
STUDY: CT PELVIS WITH CONTRAST REASON FOR EXAM: Female, 47 years old. intra abd abscess S/P APPENDECTOMY 2 WEEKS AGO RADIATION DOSAGE (If Supplied By Facility): CTDIvol = ( 28.16 ) mGy, DLP = ( 998.26 ) mGycm TECHNIQUE: Transaxial imaging of the pelvis was performed without oral contrast. IV 100mL Isovue-300 was administered intravenously. Multiplanar coronal and sagittal images were reformatted. Individualized dose optimization techniques were used for this CT. COMPARISON: Comparison is made with prior examination of 04/19/2022. FINDINGS: Normal urinary bladder. There is evidence of a 7 cm x 5.1 cm x 5.1 cm fluid collection in the cul-de-sac. Smaller fluid collections are also seen in the left and right side of the pelvis. This most likely represents postoperative abscess. Normal visualized small intestine. Normal visualized colon. There is no pelvic fluid. There is no pelvic lymphadenopathy or mass lesion. Normal visualized pelvic arteries. Normal abdominal wall. Normal osseous structures. CT/Pelvis WITH IV Contrast IMPRESSION: Since prior study, there has been enlarging fluid collection in the cul-de-sac as well as both sides of the pelvis suggestive of enlarging pelvic abscess. Electronically Signed: Deep Henry MD at 11:19 EST ,
[2022-05-01 10:19] LABS: Differential Comment SCANNED
[2022-05-01 11:01] LABS: Lactic Acid 0.7 mmol/L (0.4-1.9)
[2022-05-01 11:27] LABS: International Normalized Ratio 1.5; Partial Thromboplast Time 42.2 Seconds (24.1-36.2); Prothrombin Time (Protime)PT. 17.6 SECONDS (11.7-14.9)
[2022-05-01] MEDS: fentaNYL 100 MCG/2 ML Ampul IV ×3 (12:25→12:52)
[2022-05-01] MEDS: Midazolam 2 MG/2 ML Syringe IV ×3 (12:25→12:52)
[2022-05-01] MEDS: Lidocaine 2% (20 ml mdv) 20 ML Vial INFILT (12:35)
--- NOTE | 2022-05-01 14:36 | NURSING ---
MED SURG BORTZ INTRA ABD ABSCESS
--- NOTE | 2022-05-01 15:26 | ED.RN ---
100 ml of brown drainage emptied from GAURI drain at this time.
--- NOTE | 2022-05-01 15:44 | PCM.HP.STD ---
[facility] - General General Date of Admission: 05/01/22 Date of Service: 05/01/22 Chief Complaint: Intra-abdominal abscess HPI Narrative CHECO WINCHESTER, is a 47 F who presents with a 1 day history of fever, lightheadedness and dizziness. Patient had a laparoscopic appendectomy on 04/15/[address] Gallardo for a ruptured appendicitis. Patient was discharged on 04/17 to home with two GAURI drains in place and oral antibiotics. Patient notes she completed the antibiotics and kept track of the drainage from the GAURI drains. She noted during her hospitalization she was placed on Metoprolol due to an abdominal findings just prior to intubation for the appendectomy. Patient had a cardiac work-up for heart rate in the 140's, a run PVC's and bigeminy. Patient had an ECHO completed which demonstrated preserved left ventricular systolic function. Patient notes she has a follow-up with her PCP in a few weeks and will continue to take the metoprolol until then. Patient notes she was scheduled to have a follow-up with Dr. Gallardo in 2 weeks. She was to obtain a CT scan of the abdomen/pelvis prior to her visit to determine if the 2 GAURI drains are able to be removed. Patient notes she came to the ED on 04/19 due to constipation and a new abdominal pain. Patient had a CT scan of the ab/pel which demonstrated enhancing fluid collections in the right lower pelvis concerning for peritonitis and abscess formation. Two drains were away from the fluid collection. Patient was provided stool softeners and recommended to follow-up with Dr. Gallardo as an outpatient. Patient had a repeat CT scan of the ab/pel on Friday at [facility] which she was told showed a larger abscess in the pelvic region. Patient had a follow-up on Friday with Dr. Gallardo. Her drains were pulled from the anterior pelvic region and patient was scheduled for Friday for a CT guided abscess drainage and drain placement. Patient states she woke up this morning feeling unwell. She noted she had a temperature of 102 at home, lightheaded and dizziness. Patient contacted Dr. Gallardo's office and was told Dr. Gallardo was out of the office. Patient presented to the ED. Patient had a CT scan of the pelvis again demonstrating an enlarging fluid collection in the cul-de-sac as well as both sides of the pelvis suggesting a pelvic abscess. Patient had a CT guided drain placement and was able to have 150 mL of larose material aspirated. Patient also noted following discharged from her appendectomy she and her both developed COVID. She notes her symptoms were mild and have completely resolved. Patient also notes she developed a yeast infection from being on the antibiotics. Patient currently notes minimal amount of abdominal pain. She notes feeling chilled. She denies nausea, vomiting. She notes lack of appetite. She notes being more on the constipated side of bowel habits. WBC is 14.2 PFSH Medical History Abdominal pain Abnormal CT scan, gastrointestinal tract Bipolar disorder Dysrhythmia Tonsillectomy planned Home Medications lamotrigine 200 mg tablet (Lamictal) 300 mg PO DAILY 01/02/17 [History Last Taken Unknown] quetiapine 400 mg tablet,extended release 24 hr (Seroquel XR) 400 mg PO QPM 04/15/22 [History Last Taken 04/14/22 18:00] amoxicillin 500 mg-potassium clavulanate 125 mg tablet (Augmentin) 1 tab PO Q8H 5 days #15 tabs 04/17/22 [Rx Last Taken Unknown] metoprolol tartrate 25 mg tablet 25 mg PO BID 30 days #60 tabs 04/17/22 [Rx Last Taken Unknown] bisacodyl 5 mg tablet,delayed release (Alophen (bisacodyl)) 5 mg PO QHS PRN constipation 2 days #2 tabs 04/19/22 [Rx Last Taken Unknown] Allergy/AdvReac Type Severity Reaction Status Date / Time hydromorphone [From Dilaudid] AdvReac Other Verified 05/01/22 08:59 Surgical History (Updated 05/01/22 @ 09:15 by Kaykay Matta) History of placement of ear tubes Hx of appendectomy Status post laparoscopic appendectomy Social History Smoking Status: Current every day smoker tobacco type: e-cigarettes and smokeless tobacco ROS Constitutional Constitutional: Reports systems reviewed and no addt'l complaints, except as documented Eyes Eyes: Reports systems reviewed and no addt'l complaints, except as documented ENT HEENT: Reports systems reviewed and no addt'l complaints, except as documented Cardiovascular Cardiovascular: Reports systems reviewed and no addt'l complaints, except as documented Respiratory/Chest Respiratory/Chest: Reports systems reviewed and no addt'l complaints, except as documented Gastrointestinal Gastrointestinal: Reports systems reviewed and no addt'l complaints, except as documented Genitourinary Genitourinary: Reports systems reviewed and no addt'l complaints, except as documented Musculoskeletal Musculoskeletal: Reports systems reviewed and no addt'l complaints, except as documented Integumentary Integumentary: Reports systems reviewed and no addt'l complaints, except as documented Neurologic Neurologic: Reports systems reviewed and no addt'l complaints, except as documented Psychiatric Psychiatric: Reports systems reviewed and no addt'l complaints, except as documented Endocrine Endocrinology: Reports systems reviewed and no addt'l complaints, except as documented Hematologic/Lymphatic Hematologic/Lymphatic: Reports systems reviewed and no addt'l complaints, except as documented Allergic/Immunologic Allergic/Immunologic: Reports systems reviewed and no addt'l complaints, except as documented Vital Signs Vital Signs Vital Signs: 05/01/22 08:59 05/01/22 09:18 05/01/22 11:03 Temperature 98.9 F 100.3 F H 98.9 F Temperature Source Oral Oral Temporal Pulse Rate 108 H 98 Pulse Rate [1 (Initial Baseline)] Pulse Rate [10] Pulse Rate [2] Pulse Rate [3] Pulse Rate [4] Pulse Rate [5] Pulse Rate [6] Pulse Rate [7] Pulse Rate [8] Pulse Rate [9] Respiratory Rate 16 16 Respiratory Rate [1 (Initial Baseline)] Respiratory Rate [10] Respiratory Rate [2] Respiratory Rate [3] Respiratory Rate [4] Respiratory Rate [5] Respiratory Rate [6] Respiratory Rate [7] Respiratory Rate [8] Respiratory Rate [9] Blood Pressure 108/69 113/68 Blood Pressure [1 (Initial Baseline)] Blood Pressure [10] Blood Pressure [2] Blood Pressure [3] Blood Pressure [4] Blood Pressure [5] Blood Pressure [6] Blood Pressure [7] Blood Pressure [8] Blood Pressure [9] Blood Pressure Mean 82 83 Pulse Ox 97 100 Oxygen Delivery Method Room Air Room Air Oxygen Delivery Method [1 (Initial Baseline)] Oxygen Delivery Method [10] Oxygen Delivery Method [2] Oxygen Delivery Method [3] Oxygen Delivery Method [4] Oxygen Delivery Method [5] Oxygen Delivery Method [6] Oxygen Delivery Method [7] Oxygen Delivery Method [8] Oxygen Delivery Method [9] 05/01/22 12:01 05/01/22 12:28 05/01/22 13:19 Temperature Temperature Source Pulse Rate 109 H Pulse Rate [1 (Initial Baseline)] 115 H Pulse Rate [10] 126 H Pulse Rate [2] 115 H Pulse Rate [3] 115 H Pulse Rate [4] 116 H Pulse Rate [5] 112 H Pulse Rate [6] 115 H Pulse Rate [7] 121 H Pulse Rate [8] 116 H Pulse Rate [9] 113 H Respiratory Rate 18 Respiratory Rate [1 (Initial Baseline)] 16 Respiratory Rate [10] 16 Respiratory Rate [2] 19 H Respiratory Rate [3] 20 H Respiratory Rate [4] 19 H Respiratory Rate [5] 15 Respiratory Rate [6] 23 H Respiratory Rate [7] 15 Respiratory Rate [8] 12 Respiratory Rate [9] 10 L Blood Pressure 138/75 H Blood Pressure [1 (Initial Baseline)] 121/69 H Blood Pressure [10] 94/34 L Blood Pressure [2] 91/38 L Blood Pressure [3] 122/83 H Blood Pressure [4] 116/40 L Blood Pressure [5] 82/61 L Blood Pressure [6] 99/47 L Blood Pressure [7] 78/57 L Blood Pressure [8] 91/63 Blood Pressure [9] 113/85 H Blood Pressure Mean Pulse Ox 100 Oxygen Delivery Method Room Air Room Air Oxygen Delivery Method [1 (Initial Baseline)] Room Air Oxygen Delivery Method [10] Room Air Oxygen Delivery Method [2] Room Air Oxygen Delivery Method [3] Room Air Oxygen Delivery Method [4] Room Air Oxygen Delivery Method [5] Room Air Oxygen Delivery Method [6] Room Air Oxygen Delivery Method [7] Room Air Oxygen Delivery Method [8] Room Air Oxygen Delivery Method [9] Room Air 05/01/22 13:24 05/01/22 13:30 05/01/22 13:35 Temperature Temperature Source Pulse Rate Pulse Rate [1 (Initial Baseline)] Pulse Rate [10] Pulse Rate [2] Pulse Rate [3] Pulse Rate [4] Pulse Rate [5] Pulse Rate [6] Pulse Rate [7] Pulse Rate [8] Pulse Rate [9] Respiratory Rate Respiratory Rate [1 (Initial Baseline)] Respiratory Rate [10] Respiratory Rate [2] Respiratory Rate [3] Respiratory Rate [4] Respiratory Rate [5] Respiratory Rate [6] Respiratory Rate [7] Respiratory Rate [8] Respiratory Rate [9] Blood Pressure Blood Pressure [1 (Initial Baseline)] Blood Pressure [10] Blood Pressure [2] Blood Pressure [3] Blood Pressure [4] Blood Pressure [5] Blood Pressure [6] Blood Pressure [7] Blood Pressure [8] Blood Pressure [9] Blood Pressure Mean Pulse Ox Oxygen Delivery Method Room Air Room Air Room Air Oxygen Delivery Method [1 (Initial Baseline)] Oxygen Delivery Method [10] Oxygen Delivery Method [2] Oxygen Delivery Method [3] Oxygen Delivery Method [4] Oxygen Delivery Method [5] Oxygen Delivery Method [6] Oxygen Delivery Method [7] Oxygen Delivery Method [8] Oxygen Delivery Method [9] 05/01/22 14:05 05/01/22 14:20 Temperature Temperature Source Pulse Rate Pulse Rate [1 (Initial Baseline)] Pulse Rate [10] Pulse Rate [2] Pulse Rate [3] Pulse Rate [4] Pulse Rate [5] Pulse Rate [6] Pulse Rate [7] Pulse Rate [8] Pulse Rate [9] Respiratory Rate Respiratory Rate [1 (Initial Baseline)] Respiratory Rate [10] Respiratory Rate [2] Respiratory Rate [3] Respiratory Rate [4] Respiratory Rate [5] Respiratory Rate [6] Respiratory Rate [7] Respiratory Rate [8] Respiratory Rate [9] Blood Pressure Blood Pressure [1 (Initial Baseline)] Blood Pressure [10] Blood Pressure [2] Blood Pressure [3] Blood Pressure [4] Blood Pressure [5] Blood Pressure [6] Blood Pressure [7] Blood Pressure [8] Blood Pressure [9] Blood Pressure Mean Pulse Ox Oxygen Delivery Method Room Air Room Air Oxygen Delivery Method [1 (Initial Baseline)] Oxygen Delivery Method [10] Oxygen Delivery Method [2] Oxygen Delivery Method [3] Oxygen Delivery Method [4] Oxygen Delivery Method [5] Oxygen Delivery Method [6] Oxygen Delivery Method [7] Oxygen Delivery Method [8] Oxygen Delivery Method [9] Weight Weight: 158 lb 8.198 oz Body Mass Index (BMI) 26.4 Physical Exam Const alert, oriented x3 and no apparent distress HEENT normocephalic Eyes General Eye: normal appearance of both eyes Neck full ROM General: normal visual inspection Lymph Lymphatic: no lymphadenopathy noted Resp normal respiratory effort, normal air movement and clear to auscultation bilaterally Cardio Rate: tachycardic GI soft to palpation GI Narrative: Abdominal incisions- c/d/i. No erythema or infection noted. Anterior pelvic midline drain site appears slightly erythematous and small amount of purulent material noted. Drain site is open and drainage a small amount of purulent material. Right gluteal region with drain in place. Larose serous fluid is noted within the GAURI bulb. Inspection: abdominal distention Auscultation: hypoactive bowel sounds Palpation: tender RLQ Bladder / Kidney Exam: CVA tenderness right Back/Spine normal to inspection Extremity normal to inspection Skin no rashes or lesions noted Neuro no focal motor deficits and no sensory deficits noted Psych mental status grossly normal and thought process normal Appearance: grossly normal Speech: normal speech Results Lab / Micro Data Result Diagrams: 05/01/22 09:25 05/01/22 09:25 Labs: Laboratory Results - last 24 hr 05/01/22 09:25: WBC 14.2 H, RBC 3.87 L, Hgb 11.1 L, Hct 33.7 L, MCV 87.1, MCH 28.7, MCHC 32.9, RDW Std Deviation 39.9, RDW Coeff of Radha 12.6, Plt Count 617 H, MPV 9.9, Immature Gran % (Auto) 0.800, Neut % (Auto) 76.6 H, Lymph % (Auto) 10.4 L, [place] % (Auto) 11.7 H, Eos % (Auto) 0.1, Baso % (Auto) 0.4, Absolute Neuts (auto) 10.9 H, Absolute Lymphs (auto) 1.47, Nucleated RBC % 0, Differential Comment SCANNED, Diff Path Review July05/01/22 09:25: Sodium 130 L, Potassium 3.9, Chloride 97 L, Carbon Dioxide 27.0, Anion Gap 6, BUN 9, Creatinine 0.83, Estim Creat Clear Calc 77.02, Est GFR (MDRD) Af Amer 95, Est GFR (MDRD) Non-Af 79, BUN/Creatinine Ratio 10.8, Glucose 122 H, Calcium 8.9 05/01/22 10:15: Lactic Acid 0.7 05/01/22 11:12: PT 17.6 H, INR 1.5, APTT 42.2 H Radiology Impression Abscess Drainage CT 05/01/22 10:02 IMPRESSION: 1. CT directed drainage of a fluid collection using CT image guidance and image documentation as described. 2. Conscious Sedation protocol utilized with independent monitoring Electronically Signed: Deep Henry MD at 13:42 EST , Pelvis CT 05/01/22 10:14 IMPRESSION: Since prior study, there has been enlarging fluid collection in the cul-de-sac as well as both sides of the pelvis suggestive of enlarging pelvic abscess. Electronically Signed: Deep Henry MD at 11:19 EST , Assessment & Plan Assessment/Plan (1) Intra-abdominal abscess: PLAN: I am following this patient in conjunction with Dr. Adams. We will plan to admit patient for IV hydration, IV antibiotics and close monitoring. Patient has drain in place to continue to drain the pelvic abscess. Patient has had the opportunity to ask and have questions answered. Patient verbally understands and agrees with the plan. Thank you for allowing us to participate in this patient's care.
[2022-05-01] MEDS: 0.9% Normal Saline 1,000 ML 75 ML IV (16:37)
[2022-05-01] MEDS: 0.9% Saline Lock 10 ML Syringe IV (18:02)
[2022-05-01] MEDS: FLUCONAZOLE 150 MG TABLET PO (18:02)
--- NOTE | 2022-05-01 18:25 | NURSING ---
PT STATES HER COVID SYMPTOMS WAS AFTER HER SURGERY THE 04/16/22
[2022-05-01] MEDS: Calcium Carbonate 500 MG Tablet PO (20:08)
[2022-05-01] MEDS: Acetaminophen 325 MG Tablet 650 MG PO (21:56)
[2022-05-01] MEDS: Metoprolol Tartrate 25 MG Tablet PO (21:57)
[2022-05-02] VITALS (9 sets, daily range): BP systolic 94–127; BP diastolic 44–74; PULSE 80–120; RESP 14–18; TEMP 36.8–37; O2SAT 95–100; BMI 27.6
[2022-05-02] MEDS: 0.9% Normal Saline 1,000 ML 75 ML IV (05:49)
[2022-05-02 06:16] LABS: Absolute Lymphocyte Count 2.21 X10^3/uL (0.83-4.51); Basophil# 0.07 X10^3/uL; Basophil% 0.5 % (0-1); Eosinophil# 0.03 X10^3/uL; Eosinophils% 0.2 % (0-5); Hematocrit 33.2 % (37-47); Hemoglobin 10.5 g/dL (12.0-15.0); Lymphocyte # 2.21 X10^3/ul (0.83-4.51); Lymphocyte % 15.7 % (19-41); Mean Corp Hgb Conc 31.6 g/dL (32-36); Mean Corpuscular Hgb 28.5 pg (27.0-32.0); Mean Corpuscular Volume 90.2 fL (81-99); Mean Platelet Vol. 10.1 fl (6.2-12.0); Monocyte# 1.61 X10^3/uL; Monocyte% 11.4 % (0-10); NRBC Flagged by Analyzer 0 % (0-5); Neutrophil # 10.02 X10^3/uL (2.7-7.7); Neutrophil % 71.1 % (47-70); POSITIVE DIFFERENTIAL YES; Platelet Count 535 K/mm3 (150-450); RBC Distribution Width CV 12.7 % (11.6-14.6); RBC Distribution Width SD 42.3 fl (35.1-43.9); Red Blood Count 3.68 M/mm3 (4.2-5.4); White Blood Count 14.1 K/mm3 (4.4-11.0)
[2022-05-02 06:38] LABS: Differential Indicated SCAN CRITERIA MET
[2022-05-02 06:39] LABS: Differential Comment SCANNED
[2022-05-02 06:58] LABS: Anion Gap 7 (5-15); BUN 5 mg/dL (7-18); BUN/Creat Ratio 6.1 RATIO (10-20); Chloride 103 mmol/L (98-107); Creatinine, Serum 0.82 mg/dL (0.55-1.02); EST Glomerular Filtration Rate 80 mL/min (>60); Est Glom Filt Rate - Afr Amer 96 mL/min (>60); Estimated Creatinine Clearance 77.96 ml/min; Glucose 124 mg/dL (74-106); Potassium 3.4 mmol/L (3.5-5.1); Sodium Level 139 mmol/L (136-145)
[2022-05-02] MEDS: Metoprolol Tartrate 25 MG Tablet PO ×2 (10:00→21:24)
[2022-05-02] MEDS: lamoTRIgine 150 MG Tablet 300 MG PO (10:01)
[2022-05-02] MEDS: Acetaminophen 325 MG Tablet 650 MG PO ×2 (10:06→21:28)
[2022-05-02] MEDS: oxyCODONE 5 MG Tablet PO ×3 (10:10→21:58)
[2022-05-02] MEDS: Potassium Chloride Oral Tablet 20 MEQ 40 MEQ PO (10:56)
--- NOTE | 2022-05-02 11:44 | PCM.PN.SRG ---
Subjective Subjective Patient is seen and examined during AM rounds and then again in the afternoon. She reports significant improvement in her abdominal discomfort and states this is the first time since her surgery on 04/15/2022 which she has felt this good. She also expresses a strong appetite and asked specifically for a breakfast sandwich. She denies any nausea or vomiting. She denies any hiccups or burping. Remarks of only slight discomfort from her right gluteus?the site of her percutaneous drain Objective Data Objective Data Vital Signs: Vital Signs Temp Pulse Resp BP Pulse Ox O2 Del Method 98.4 F 115 H 18 109/59 L 95 Room Air 05/02/22 08:53 05/02/22 10:00 05/02/22 08:53 05/02/22 10:00 05/02/22 08:53 05/02/22 08:53 Oxygen Delivery Method [10] Room Air Oxygen Delivery Method [9] Room Air Oxygen Delivery Method [8] Room Air Oxygen Delivery Method [7] Room Air Oxygen Delivery Method [6] Room Air Oxygen Delivery Method [5] Room Air Oxygen Delivery Method [4] Room Air Oxygen Delivery Method [3] Room Air Oxygen Delivery Method [2] Room Air Oxygen Delivery Method [1 ( Room Air Initial Baseline)] Oxygen Delivery Method Room Air Weight: 165 lb 12.602 oz Body Mass Index (BMI) 27.6 Intake & Output: Intake and Output for Last 24 Hours 04/30/22 05/01/22 05/02/22 23:59 23:59 23:59 Intake Total 3550 / 3550 3040 / 3040 Output Total 25 / 25 Balance 3550 / 3525 3015 / 3015 Lab / Micro Data Result Diagrams: 05/02/22 06:05 05/02/22 06:05 Labs: Laboratory Results - last 24 hr 05/02/22 06:05: WBC 14.1 H, RBC 3.68 L, Hgb 10.5 L, Hct 33.2 L, MCV 90.2, MCH 28.5, MCHC 31.6 L, RDW Std Deviation 42.3, RDW Coeff of Radha 12.7, Plt Count 535 H, MPV 10.1, Immature Gran % (Auto) 1.100 H, Neut % (Auto) 71.1 H, Lymph % (Auto) 15.7 L, [place] % (Auto) 11.4 H, Eos % (Auto) 0.2, Baso % (Auto) 0.5, Absolute Neuts (auto) 10.0 H, Absolute Lymphs (auto) 2.21, Nucleated RBC % 0, Differential Comment SCANNED, Diff Path Review May foll 05/02/22 06:05: Sodium 139, Potassium 3.4 L, Chloride 103, Carbon Dioxide 29.0, Anion Gap 7, BUN 5 L, Creatinine 0.82, Estim Creat Clear Calc 77.96, Est GFR (MDRD) Af Amer 96, Est GFR (MDRD) Non-Af 80, BUN/Creatinine Ratio 6.1 L, Glucose 124 H, Calcium 9.0 Micro: Microbiology 05/01/22 18:04 Wound Abcess - Aerobic & Anaerobic Swabs Wound Culture - Preliminary No growth-Final to follow Radiography Diagnostic Testing: Radiology Impression Abscess Drainage CT 05/01/22 10:02 IMPRESSION: 1. CT directed drainage of a fluid collection using CT image guidance and image documentation as described. 2. Conscious Sedation protocol utilized with independent monitoring Electronically Signed: Deep Henry MD at 13:42 EST , Physical Exam Const oriented x3 and no apparent distress Resp normal respiratory effort GI GI Narrative: Nondistended, soft, nontender to palpation x4 quadrants. Abdominal drain exits the right gluteus with thick rodrigez output. This output is not able to be moved with traditional drain stripping so drain was flushed at bedside by implementing a three-way stopcock to the circuit. Assessment & Plan Assessment/Plan (1) Intra-abdominal abscess: PLAN: Patient is hospital day 2 from admission for percutaneous drain placement to pelvic fluid collection following lap appendectomy with drain placement 04/15/2022. Her fever curve is improving and she is exhibiting less tachycardia. Subjectively, she reports feeling better and having an appetite for the first time in weeks. She exhibits no signs of an ileus. Her abdominal exam is benign. With these improvements, I have advanced her to a regular diet. ? Continue IV antibiotics with Zosyn ? Follow-up fluid cultures?currently appear to be sterile. We will look to transition to oral antibiotic tomorrow ? Provide drain teaching ? Dispo: Anticipated discharge 05/03/2022
[2022-05-02 12:50] LABS: Pathologist Review Reviewed
[2022-05-02 13:01] LABS: Pathologist Review Reviewed
[2022-05-03 03:30] VITALS: BP 101/66; PULSE 107; RESP 16; TEMP 36.5; O2SAT 96
[2022-05-03 06:00] VITALS: BMI 26.4
[2022-05-03 06:55] LABS: Absolute Lymphocyte Count 2.41 X10^3/uL (0.83-4.51); Absolute Neutrophil Count 9.5 X10^3/uL (2.0-7.7); Basophil# 0.08 X10^3/uL; Basophil% 0.6 % (0-1); Eosinophil# 0.14 X10^3/uL; Hematocrit 30.8 % (37-47); Hemoglobin 9.8 g/dL (12.0-15.0); Lymphocyte # 2.41 X10^3/ul (0.83-4.51); Lymphocyte % 17.5 % (19-41); Mean Corp Hgb Conc 31.8 g/dL (32-36); Mean Corpuscular Hgb 28.1 pg (27.0-32.0); Mean Corpuscular Volume 88.3 fL (81-99); Mean Platelet Vol. 10.2 fl (6.2-12.0); Monocyte% 10.2 % (0-10); NRBC Flagged by Analyzer 0 % (0-5); Neutrophil # 9.54 X10^3/uL (2.7-7.7); Neutrophil % 69.3 % (47-70); Platelet Count 476 K/mm3 (150-450); RBC Distribution Width CV 12.7 % (11.6-14.6); RBC Distribution Width SD 41.1 fl (35.1-43.9); Red Blood Count 3.49 M/mm3 (4.2-5.4); White Blood Count 13.8 K/mm3 (4.4-11.0)
--- NOTE | 2022-05-03 07:09 | PCM.PN.SRG ---
Objective Data Objective Data Vital Signs: Vital Signs Temp Pulse Resp BP Pulse Ox O2 Del Method 97.7 F L 107 H 16 101/66 96 Room Air 05/03/22 03:30 05/03/22 03:30 05/03/22 03:30 05/03/22 03:30 05/03/22 03:30 05/03/22 03:30 Oxygen Delivery Method [10] Room Air Oxygen Delivery Method [9] Room Air Oxygen Delivery Method [8] Room Air Oxygen Delivery Method [7] Room Air Oxygen Delivery Method [6] Room Air Oxygen Delivery Method [5] Room Air Oxygen Delivery Method [4] Room Air Oxygen Delivery Method [3] Room Air Oxygen Delivery Method [2] Room Air Oxygen Delivery Method [1 ( Room Air Initial Baseline)] Oxygen Delivery Method Room Air Weight: 158 lb 15.253 oz Body Mass Index (BMI) 26.4 Intake & Output: Intake and Output for Last 24 Hours 05/01/22 05/02/22 05/03/22 23:59 23:59 23:59 Intake Total 3550 / 3550 6816.04 / 6816.04 2049 Output Total 45 / 45 15 Balance 3550 / 3525 6771.04 / 6771.04 2034 Lab / Micro Data Result Diagrams: 05/03/22 06:25 05/02/22 06:05 Labs: Laboratory Results - last 24 hr 05/01/22 09:25: Diff Path Review Reviewed 05/02/22 06:05: Diff Path Review Reviewed 05/03/22 06:25: WBC 13.8 H, RBC 3.49 L, Hgb 9.8 L, Hct 30.8 L, MCV 88.3, MCH 28.1, MCHC 31.8 L, RDW Std Deviation 41.1, RDW Coeff of Radha 12.7, Plt Count 476 H, MPV 10.2, Immature Gran % (Auto) 1.400 H, Neut % (Auto) 69.3, Lymph % (Auto) 17.5 L, [place] % (Auto) 10.2 H, Eos % (Auto) 1.0, Baso % (Auto) 0.6, Absolute Neuts (auto) 9.5 H, Absolute Lymphs (auto) 2.41, Nucleated RBC % 0 Micro: Microbiology 05/01/22 18:04 Wound Abcess - Aerobic & Anaerobic Swabs Gram Stain - Final 05/01/22 18:04 Wound Abcess - Aerobic & Anaerobic Swabs Wound Culture - Preliminary No growth-Final to follow
[2022-05-03 07:38] LABS: Anion Gap 5 (5-15); BUN 3 mg/dL (7-18); BUN/Creat Ratio 4.3 RATIO (10-20); Calcium,Total 8.9 mg/dL (8.5-10.1); Chloride 106 mmol/L (98-107); Creatinine, Serum 0.69 mg/dL (0.55-1.02); EST Glomerular Filtration Rate 97 mL/min (>60); Est Glom Filt Rate - Afr Amer 118 mL/min (>60); Estimated Creatinine Clearance 92.65 ml/min; Glucose 113 mg/dL (74-106); Potassium 3.8 mmol/L (3.5-5.1); Sodium Level 141 mmol/L (136-145)
--- NOTE | 2022-05-03 08:57 | CASEMGMT ---
[facility] Readmission Review: Index: 04/15 thru 04/17, Dx: acute appendicitis with perforation with laparoscopic appendectomy after cardiac clearance for noted cardiac arrhythmia ED Visit: 04/19 Dx: increased abd pain, constipation, CT with small fluid collections Readmission: 05/01, Dx: intra-abdominal abscess Pt was admitted on the above noted dates for the noted diagnoses. Pt was noted to be independent at baseline and had the support of her at discharge from the index admission. Pt was discharged with GAURI drains. Pt presented to the ED on 04/19 and with increased pain and a change in the color of her GAURI drain fluid from yellow to pink. Pt's pain was felt to be related to constipation. A repeat outpt CT noted the drains were not located in the same area as an abscess formation so the drains were removed in the outpatient setting. Pt was scheduled for an outpt CT guided drainage of the abscess but pt began to feel more ill with fever and therefore presented to the ED. Pt was readmitted for further treatment of the intra-abdominal abscess. Pt has a follow-up appointment scheduled with her PCP and has been compliant with her medications including her metoprolol (treatment for her identified arrhythmia on index). Will continue to monitor and assist with DC needs as identified. Satnam Pearson RN CM
[2022-05-03 09:01] VITALS: BP 102/66; PULSE 114; RESP 18; TEMP 37.5; O2SAT 97
[2022-05-03 09:31] VITALS: PULSE 114
[2022-05-03] MEDS: lamoTRIgine 150 MG Tablet 300 MG PO (10:56)
[2022-05-03] MEDS: Amox/Clavulanate 875 MG Tablet PO (10:56)
[2022-05-03 13:02] VITALS: BP 112/68; PULSE 118; RESP 16; TEMP 37.3; O2SAT 97
[2022-05-03 13:10] VITALS: PULSE 118
[2022-05-03] MEDS: oxyCODONE 5 MG Tablet PO ×2 (13:10→18:46)
[2022-05-03] MEDS: Metoprolol Tartrate 25 MG Tablet PO (13:10)
--- NOTE | 2022-05-03 15:55 | CASEMGMT ---
Social Work SW followed up with pt for discharge planning. Pt confirms she was doing well at home prior to readmission and she feels there are no problems with returning home at time of discharge. Pt states her spouse is home with her and she has been able to care for drains independently. Supportive listening provided concerning frustration with readmission. SW provided pt with business card of Patient Advocate. Plan: Return home with spouse at time of discharge SUSAN Rose
--- NOTE | 2022-05-03 16:10 | DCINST_ITS ---
Discharge Instructions Activity Discharge Activity: May Shower (May begin showering 48hours postop. Please avoid baths or submerging surgical incisions before skin is completely healed.) Lifting Restrictions: Limit lifting to <15lbs Dressing / Incision Call your doctor if your incision/area has: Sudden Increased Bleeding, Increased Pain/ Swelling, Increased Redness, Foul Smelling Discharge and Swelling at the incision site Call your doctor if you observe: Fever of 101 or Higher, Inability to urinate, Inability to have a bowel movement and Uncontrolled pain Suture Line Care: Avoid Pulling/Pushing Remove Dressing in: 2 days (Please leave steri strips (medical tape) in place until they fall off spontaneously or are removed at your follow-up appointment) Cleanse incision/area with: Soap & Water and Keep Dressing Clean & Dry (Change gauzes if they become saturated, but leave radiology dressing intact (blue and beige color)) Drain: Suction (Bulb suction. Please keep a record of 24-hour outputs.) Follow Up Care Please Follow Up With: Mariella Gallardo MD When: Within [address] Adams's office if there is difficulty in obtaining this follow-up. Test Results: Test results from this visit will be discussed in further detail at your follow- up appointment, if applicable. Discharge Plan Admission Admit Date/Time: 05/01/22 15:09 Primary Reason for Your Visit: Drain placement to pelvic abscess Attending Provider: Maxime Adams Primary Care Provider: Nadege Toure Instructions Patient Instructions: Shant Barraza Drain Tube Dc, Post Op Drain Emptying Kathie, TRAM CAMPOS Procedural Sedation Discharge Orders/Prescriptions Prescriptions: New amoxicillin-pot clavulanate 875-125 mg Tablet 1 tab PO BID 10 Days Qty: 20 0RF oxycodone 5 mg Tablet 5 mg PO Q4H PRN PRN (Reason: Pain Score 6-10) 5 Days Qty: 14 0RF Discontinued amoxicillin-pot clavulanate [Augmentin] 500-125 mg tablet 1 tab PO Q8H 5 Days Qty: 15 0RF No Action lamotrigine [Lamictal] 200 MG tablet 300 mg PO DAILY quetiapine [Seroquel XR] 400 mg Tablet Extended Release 24 Hr 400 mg PO QPM metoprolol tartrate 25 mg Tablet 25 mg PO BID 30 Days Qty: 60 0RF Rx Instructions: Hold for heart less than 60 or systolic blood pressure less than 100 mmHg. bisacodyl [Alophen (bisacodyl)] 5 mg tablet,delayed release (DR/EC) 5 mg PO QHS PRN (Reason: constipation) 2 Days Qty: 2 0RF Referrals / Follow Up: Nadege Toure MD [Primary Care Provider] - Disposition Disposition (needs filled in before D/C Order can be placed): Home, Self Care
--- NOTE | 2022-05-03 16:23 | DS.PCM_ITS ---
Providers Date of Admission: 05/01/22 Primary Care Physician: Dr. Nadege Toure MD Reason For Visit: INTRA ABD ABSCESS Diagnosis Discharge Diagnosis (1) Intra-abdominal abscess: Status: Acute Code(s): K65.1 - Peritoneal abscess Plan: Patient is hospital day 2 from admission for percutaneous drain placement to pelvic fluid collection following lap appendectomy with drain placement 04/15/2022. Her fever curve is improving and she is exhibiting less tachycardia. Subjectively, she reports feeling better and having an appetite for the first time in weeks. She exhibits no signs of an ileus. Her abdominal exam is benign. With these improvements, I have advanced her to a regular diet. ? Continue IV antibiotics with Zosyn ? Follow-up fluid cultures?currently appear to be sterile. We will look to transition to oral antibiotic tomorrow ? Provide drain teaching ? Dispo: Anticipated discharge 05/03/2022 Medications at Discharge Home Medications lamotrigine 200 mg tablet (Lamictal) 300 mg PO DAILY Check with primary doctor 01/02/17 quetiapine 400 mg tablet,extended release 24 hr (Seroquel XR) 400 mg PO QPM 04/15/22 metoprolol tartrate 25 mg tablet 25 mg PO BID 30 days #60 tabs 04/17/22 bisacodyl 5 mg tablet,delayed release (Alophen (bisacodyl)) 5 mg PO QHS PRN constipation 2 days #2 tabs 04/19/22 amoxicillin 875 mg-potassium clavulanate 125 mg tablet 1 tab PO BID 10 days #20 tabs 05/03/22 oxycodone 5 mg tablet 5 mg PO Q4H PRN PRN Pain Score 6-10 5 days #14 tabs 05/03/22 Hospital Course Operations None Procedures - (CT-guided drain placement to pelvic abscess) Summary of Care Provided Hospital Course: Patient is a 47-year-old female who presented to [facility] on 05/01/2022 with signs and symptoms of intra-abdominal abscess. She was febrile, tachycardic, and CBC demonstrated a leukocytosis with left shift. CT imaging of the abdomen pelvis redemonstrated a known pelvic fluid collection, but showed some interval growth. Patient had been previously set up for an outpatient percutaneous drainage to be done today, 05/03/2022 through the [facility]. However, given her signs of possible developing sepsis, decision was made through radiology and emergency medicine to proceed with CT-guided percutaneous drain placement. Given that this collection followed a complicated laparoscopic appendectomy on 04/15/[address] Gallardo, I was asked to admit the patient. Patient was seen and evaluated and placed on IV antibiotics with minimal diet as she was monitored for possible development of an ileus. She continued to exhibit bowel function and reported almost instantaneous improvement in her wellbeing following the drain placement. Gradually both her fever curve and tachycardia improved. Her white count also down trended and her antibiotic was transitioned to oral Augmentin. The drain placed by radiology was carefully monitored and a culture of the drainage fluid was sent, but ultimately resulted as a sterile collection. I performed a cavity and drain flush on 05/02/2022 and a drain line flush today, 05/03/2022. Ongoing cloudy, turbid output continued from this drain. Patient was provided drain teaching. Given her clinical improvements, she was offered discharge to home. She initially expressed frustration and fear given her recent experiences, but was assured close outpatient follow-up and this plan was also discussed with her spouse. With these additional discussions, both expressed understanding of the plan and a willingness to proceed as described. Physical Exam Const alert and oriented x3 Constitutional Narrative: Mild distress from frustration/fear Resp normal respiratory effort GI GI Narrative: Well-healed scars from recent surgery, nondistended, soft, nontender to palpation x4 quadrants. Right gluteal drain with rodrigez-great output Weight / BMI Weight Weight: 158 lb 15.253 oz Body Mass Index (BMI) 26.4 ABG / Lab / Microbiology Data Result Diagrams: 05/03/22 06:25 05/03/22 06:25 Laboratory: Laboratory Results - last 24 hr 05/03/22 06:25: WBC 13.8 H, RBC 3.49 L, Hgb 9.8 L, Hct 30.8 L, MCV 88.3, MCH 28.1, MCHC 31.8 L, RDW Std Deviation 41.1, RDW Coeff of Radha 12.7, Plt Count 476 H, MPV 10.2, Immature Gran % (Auto) 1.400 H, Neut % (Auto) 69.3, Lymph % (Auto) 17.5 L, Williams % (Auto) 10.2 H, Eos % (Auto) 1.0, Baso % (Auto) 0.6, Absolute Neuts (auto) 9.5 H, Absolute Lymphs (auto) 2.41, Nucleated RBC % 0 05/03/22 06:25: Sodium 141, Potassium 3.8, Chloride 106, Carbon Dioxide 30.0, Anion Gap 5, BUN 3 L, Creatinine 0.69, Estim Creat Clear Calc 92.65, Est GFR (MDRD) Af Amer 118, Est GFR (MDRD) Non-Af 97, BUN/Creatinine Ratio 4.3 L, Glucose 113 H, Calcium 8.9 Microbiology: Microbiology 05/01/22 18:04 Wound Abcess - Aerobic & Anaerobic Swabs Gram Stain - Final 05/01/22 18:04 Wound Abcess - Aerobic & Anaerobic Swabs Wound Culture - Fi nal Streptococcus group F 05/01/22 10:43 Blood Culture (Wb) - Anticubital Right Blood Culture - Preliminary No growth in 48 hours. 05/01/22 10:15 Blood Culture (Wb) - Anticubital Left Blood Culture - Preliminary No growth in 48 hours. D/C Instructions Call your doctor if your incision/area has: Sudden Increased Bleeding, Increased Pain/ Swelling, Increased Redness, Foul Smelling Discharge and Swelling at the incision site Call your doctor if you observe: Fever of 101 or Higher, Inability to urinate, Inability to have a bowel movement and Uncontrolled pain Suture Line Care: Avoid Pulling/Pushing Cleanse incision/area with: Soap & Water and Keep Dressing Clean & Dry (Change gauzes if they become saturated, but leave radiology dressing intact (blue and beige color)) Drain: Suction (Bulb suction. Please keep a record of 24-hour outputs.) Please Follow Up With: Mariella Gallardo MD When: Within [address] Adams's office if there is difficulty in obtaining this follow-up. Meaningful Use Info Meaningful Use Diagnoses (Choose all that apply): None applicable Discharge Plan Admission Admit Date/Time: 05/01/22 15:09 Primary Reason for Your Visit: Drain placement to pelvic abscess Attending Provider: Maxime Adams Primary Care Provider: Nadege Toure Instructions Patient Instructions: Shant Barraza Drain Tube Dc, Post Op Drain Emptying Kathie, TRAM RN Procedural Sedation Discharge Orders/Prescriptions Prescriptions: New amoxicillin-pot clavulanate 875-125 mg Tablet 1 tab PO BID 10 Days Qty: 20 0RF oxycodone 5 mg Tablet 5 mg PO Q4H PRN PRN (Reason: Pain Score 6-10) 5 Days Qty: 14 0RF Discontinued amoxicillin-pot clavulanate [Augmentin] 500-125 mg tablet 1 tab PO Q8H 5 Days Qty: 15 0RF No Action lamotrigine [Lamictal] 200 MG tablet 300 mg PO DAILY quetiapine [Seroquel XR] 400 mg Tablet Extended Release 24 Hr 400 mg PO QPM metoprolol tartrate 25 mg Tablet 25 mg PO BID 30 Days Qty: 60 0RF Rx Instructions: Hold for heart less than 60 or systolic blood pressure less than 100 mmHg. bisacodyl [Alophen (bisacodyl)] 5 mg tablet,delayed release (DR/EC) 5 mg PO QHS PRN (Reason: constipation) 2 Days Qty: 2 0RF Referrals / Follow Up: Nadege Toure MD [Primary Care Provider] - Disposition Disposition (needs filled in before D/C Order can be placed): Home, Self Care
[2022-05-03 18:53] VITALS: BP 110/66; PULSE 109; RESP 20; TEMP 37.3; O2SAT 96
== END 2022-05-03 18:54 | disposition home or self-care (01) | DRG 372 ==
LOC: ED 14:35 → MS3 16:06
PROVIDERS: Physician Assistant; Admitting Provider Surgery; Emergency Provider Emergency Medicine; PCP Family Medicine; Visit Provider Surgery
DX: K65.1 Peritoneal abscess (principal); R65.10 Systemic inflammatory response syndrome (SIRS) of non-infectious origin without acute organ dysfunction; F31.9 Bipolar disorder, unspecified; F17.210 Nicotine dependence, cigarettes, uncomplicated; Z86.16 Personal history of COVID-19
CPT/HCPCS: 36415; 72193; 75989; 80048; 83605; 85025; 85610; 85730; 87040; 87070; 87075; 87077; 87205; 97802; 99156; 99157; 99284; 99406; J7030; J7050; Q9967; A4216

== ENCOUNTER → 2022-05-17 | Outpatient (CLI) | payer BC, SELFPAY ==
--- NOTE | 2022-05-17 14:42 | CT_ITS ---
We are attempting to reach an attending provider to discuss findings. An addendum with communication details will be sent when the communication is complete. INDICATION: jalen drain patency -- to come to CT and push dye in JALEN EXAMINATION: CT PELVIS BONE - CT Pelvis W/O Contrast Injection TECHNIQUE: Routine noncontrast bone CT protocol was performed of the pelvis. 2-D reformats were performed by the technologist. A radiation dose optimization technique was used for this scan. Pre and infusion imaging obtained. IV Contrast dosage and agent: No intravenous contrast administered. Per technologist note, 8 mL of diluted Isovue was infused through the existing JALEN drain by the referring physician. Radiation Dose (provided by facility) CTDIvol (8.87 ) mGy, DLP ( 574.8) mGy-cm COMPARISON: 05/01/2022 FINDINGS: AREAS OF INTEREST: 1. Surgical drain projects within the region of the cul-de-sac. 2. Following infusion of contrast via the existing drain, contrast is noted extending into the peritoneal space. 3. Contrast is noted extending into the endometrial cavity, and projects into the vagina. The location of a fistulous tract is not clearly identified. This however may be located at the uterine fundus. REMAINING EXAMINATION: SOFT TISSUES: No soft tissue swelling or gas. No radiopaque foreign body. BONES/JOINTS: Normal appearance the bony pelvis. Musculofascial planes have normal appearance. CT/Pelvis without IV Contrast IMPRESSION: 1. JALEN drain noted extending into the cul-de-sac. Following infusion of contrast, there is contrast noted within the peritoneal space. 2. There however is additional contrast noted within the endometrial cavity extending into the vagina. Location of the fistulous tract is and not clearly demonstrated however may be located at the level of the uterine fundus. Electronically Signed: Jh Aparicio MD at 18:32 EDT ,
--- NOTE | 2022-05-17 15:53 | PRO.PCM_ITS ---
Procedure Report Date of Procedure: 05/17/22 Procedure: Pelvic drain study After confirming that patient had not experienced an increased output or change in her symptoms with her pelvic drain, precontrast images were obtained in a prone positioning. This showed that the drain remained in the pouch of Boogie without any surrounding fluid collection. Next, to test for any undrained loculations outside of his immediate vicinity I injected the catheter with gentle pressure using 10 mL of dilute (1:1) Isovue contrast, capped the cath eter, and then repeated the imaging. This imaging appeared to show disparate droplets of the contrast locally in the pelvis, but without a discrete collection. I interpreted this to mean that patient's prior abscess cavity had been contracted down around the catheter and likely ruptured even with the gentle pressure that was used to instill the contrast and that this resulted in indiscriminate dissemination of the contrast via the catheter pores. Based on this interpretation, I proceeded with catheter removal and instructed patient to arrange for 1 week follow-up with me to verify that the site remains appropriately healing.
--- NOTE | 2022-05-17 18:14 | RAD.NOTE ---
Dr. Adams in CT for drainage catheter evaluation. Patient was placed prone on CT table and scanned without contrast. Dr. Adams reviewed images and decided to proceed with study. Patient was injected with approx. 8mL Isovue/saline mixture thru existing drainage catheter by Dr. Adams. CT was performed a second time after injection. Images again reviewed and Dr. Adams phoned Dr. Florez for consultation of images. During this time, this solutions executive security was speaking with patient. Patient stated I think I'm starting my period, this technologist asked if patient was having cramping. Patient stated No, but it feels like my period just started and I'm leaking all over the table. Patient rolled slightly to the side and looked underneath herself. Small amount of clear fluid was noted on patients underwear and sheet underneath. Patient states That felt really weird, like I just started bleeding. No blood was noted. This technologist informed Dr. Adams of the occurrence and he also looked at clothing/sheet. Decision made by Dr. Adams to discontinue drainage catheter and he removed it while patient was in the CT suite. Patient sent home with instructions to follow up in office with Dr. Adams in 1 week.
== END | disposition home or self-care (01) ==
LOC: CT 14:41
PROVIDERS: PCP Family Medicine; Visit Provider Surgery
DX: K65.1 Peritoneal abscess (principal)
CPT/HCPCS: 72192

== ENCOUNTER → 2022-06-13 | Outpatient (CLI) | payer BC, SELFPAY ==
--- NOTE | 2022-06-13 11:50 | RAD_ITS ---
INDICATION: Abdominal pain, possible abscess EXAMINATION/TECHNIQUE: Routine hysterosalpingography was performed. Total Fluoroscopic Time: 45 seconds AND number of Fluoroscopic Images: 4 OR Radiation dosage index: 12.62mGy COMPARISON: None. FINDINGS: The uterine cavity contour is unremarkable. There are no filling defects or abnormalities. Both fallopian tubes are patent with free peritoneal spillage bilaterally. No abnormal fistulous connection between the uterus and the posterior soft tissues of the pelvis. RAD/Salpingogram IMPRESSION: Negative hysterosalpingogram. Electronically Signed: Lico Escobar MD at 13:48 EDT ,
--- NOTE | 2022-06-13 21:29 | OP.PCM_ITS ---
Problems Associated Problem List Diagnoses (1) Pelvic abscess: Operative Report Preop diagnosis: post pelvic abscess possible uterine fistula Postop diagnosis: no uterine fistula plus bilateral tubal patency seen Procedure: Hysterosalpingogram Surgeon: Khloe Mitchell Implantable devices: None Complications: None Findings: Bilateral tubal patency and normal uterine cavity with no fistulous tract suspected Operative details: Patient was taken to the x-ray room and was placed on the x- ray table and was in the dorsal lithotomy position. Speculum was placed in the vagina and the cervix prepped with Betadine and the HSG catheter was easily introduced into the uterus and speculum removed. Radiologist was brought in and while pushing radiopaque dye into the uterus via the HSG catheter the radiologist took multiple images and views and confirmed bilateral tubal patency seen. No gross uterine filling defects or abnormalities were seen. All instruments removed from the vagina and the uterus without complication. Patient tolerated the procedure well. Multi Select Codes Urinary/Genital Urinary/Genital CPT Codes: 63925 HSG/SIS
== END | disposition home or self-care (01) ==
LOC: RAD 11:48
PROVIDERS: PCP Family Medicine; Visit Provider Obstetrics & Gynecology
DX: K65.1 Peritoneal abscess (principal)
CPT/HCPCS: 58340; 74740

== ENCOUNTER → 2022-07-15 | Outpatient (CLI) | payer BC, SELFPAY | END | disposition home or self-care (01) | LOC: PSN 11:40 | PROVIDERS: PCP Family Medicine; Referring Provider Physician Assistant Medical; Visit Provider Physician Assistant Medical | DX: I49.9 Cardiac arrhythmia, unspecified (principal) | CPT/HCPCS: 93225; 93226 ==

== ENCOUNTER → 2022-12-04 | Outpatient (CLI) | payer BC, SELFPAY ==
--- NOTE | 2022-12-04 07:08 | BI_ITS ---
MAMMOGRAPHY - BILATERAL SCREENING REASON FOR EXAM: Female, 47 years old. Routine annual screening examination. PERTINENT HISTORY: Grandmother with breast cancer. TECHNIQUE: Digital bilateral breast ana (3D mammographic acquisition) in the CC and MLO projections. 2-D mediolateral oblique (MLO) and craniocaudad (CC) views of both breasts were obtained. CAD: Full Field Digital Mammography with Computer Added Detection was performed. COMPARISON: Comparison is made with prior study dated December 03, 2021 and May 23, 2020. FINDINGS: Breast Composition: The breasts are heterogeneously dense, which may obscure small masses. 9.2 mm x 8.8 mm slightly spiculated nodule in the inferior lateral aspect of the right breast. The patient will be recalled for additional views including 90 degree lateral and compression spot views in the greater trochanter projection of the lateral aspect of the right breast. No other significant abnormalities are identified. BI/SCRN MAMM (CAD)W/ANA BILAT IMPRESSION: Questionable spiculated nodule in the inferior lateral aspect of the right breast as discussed. The patient will be recalled for additional views. Recall Side: Both Breasts ASSESSMENT CATEGORY: BIRADS Category 0: Incomplete. Need additional imaging evaluation. A letter regarding these results will be sent to the patient by the facility within 30 days. Approximately 10% of breast cancers are not detected by mammography. A normal mammogram should not delay biopsy of a clinically suspicious abnormality. [id number] Electronically Signed: Deep Henry MD at 8:59 EDT ,
== END | disposition home or self-care (01) ==
LOC: OPBI 07:07
PROVIDERS: PCP Family Medicine; Referring Provider Obstetrics & Gynecology; Visit Provider Obstetrics & Gynecology
DX: Z12.31 Encounter for screening mammogram for malignant neoplasm of breast (principal)
CPT/HCPCS: 77063; 77067

== ENCOUNTER → 2022-12-09 | Outpatient (CLI) | payer BC, SELFPAY ==
--- NOTE | 2022-12-09 12:47 | BI_ITS ---
MAMMOGRAPHY - UNILATERAL DIAGNOSTIC: RIGHT BREAST REASON FOR EXAM: Female, 47 years old. abnormal mammogram right breast PERTINENT HISTORY: Non-contributory. TECHNIQUE: Digital examination. Mediolateral oblique (MLO) and craniocaudad (CC) views of the breast were obtained. CAD: CAD was not performed on this study. COMPARISON: 12/04/2022 FINDINGS: Breast Composition: There are scattered areas of fibroglandular density. Focal compression views do not confirm a mass in the lower outer quadrant of the right breast most consistent with normal breast parenchyma. No other significant abnormalities are identified. BI/DIAG MAMM W/CAD, UNILAT IMPRESSION: Stable unilateral diagnostic mammogram. ASSESSMENT CATEGORY: BIRADS Category 1: Negative. A letter regarding these results will be sent to the patient by the facility within 30 days. FOLLOW-UP RECOMMENDATION: Yearly follow-up mammogram recommended. (A) Approximately 10% of breast cancers are not detected by mammography. A normal mammogram should not delay biopsy of a clinically suspicious abnormality. Electronically Signed: Jh Davila MD at 13:30 EDT ,
== END | disposition home or self-care (01) ==
LOC: OPUS 12:28
PROVIDERS: PCP Family Medicine; Referring Provider Obstetrics & Gynecology; Visit Provider Obstetrics & Gynecology
DX: R92.8 Other abnormal and inconclusive findings on diagnostic imaging of breast (principal)
CPT/HCPCS: 77065

== ENCOUNTER → 2023-12-12 | Outpatient (CLI) | payer OTHER, BC, SELFPAY ==
[2023-12-12 17:57] LABS: Absolute Lymphocyte Count 2.54 X10^3/uL (0.83-4.51); Absolute Neutrophil Count 2.7 X10^3/uL (2.0-7.7); Basophil# 0.05 X10^3/uL; Basophil% 0.9 % (0-1); Eosinophil# 0.08 X10^3/uL; Eosinophils% 1.4 % (0-5); Hematocrit 38.2 % (37-47); Hemoglobin 12.3 g/dL (12.0-15.0); Lymphocyte # 2.54 X10^3/ul (0.83-4.51); Lymphocyte % 43.8 % (19-41); Mean Corp Hgb Conc 32.2 g/dL (32-36); Mean Corpuscular Hgb 29.5 pg (27.0-32.0); Mean Corpuscular Volume 91.6 fL (81-99); Mean Platelet Vol. 11.7 fl (6.2-12.0); Monocyte# 0.38 X10^3/uL; Monocyte% 6.6 % (0-10); NRBC Flagged by Analyzer 0 % (0-5); Neutrophil # 2.73 X10^3/uL (2.7-7.7); Platelet Count 252 K/mm3 (150-450); RBC Distribution Width CV 12.6 % (11.6-14.6); RBC Distribution Width SD 42.5 fl (35.1-43.9); Red Blood Count 4.17 M/mm3 (4.2-5.4); White Blood Count 5.8 K/mm3 (4.4-11.0)
[2023-12-12 18:06] LABS: ALB/GLOB Ratio 1.4 RATIO (0.9-2.4); AST(SGOT) 20 U/L (15-37); Alanine Aminotransfer ALT/SGPT 20 U/L (13-56); Albumin, Serum 4.3 g/dL (3.2-5.0); Alkaline Phosphatase 57 U/L (45-117); Anion Gap 4 (5-15); BUN 6 mg/dL (7-18); BUN/Creat Ratio 6.3 RATIO (10-20); Calcium,Total 9.3 mg/dL (8.5-10.1); Chloride 105 mmol/L (98-107); Cholesterol 197 mg/dL (200); Creatinine, Serum 0.96 mg/dL (0.55-1.02); EST Glomerular Filtration Rate 66 mL/min (>60); Est Glom Filt Rate - Afr Amer 80 mL/min (>60); Globulin 3.1 g/dL (2.2-4.2); Glucose 98 mg/dL (74-106); High Density Lipoprotein 71 mg/dL; Potassium 3.6 mmol/L (3.5-5.1); Protein, Total 7.4 g/dL (6.4-8.2); Sodium Level 139 mmol/L (136-145); Triglycerides 65 mg/dL; Very Low Density Lipoprotein 13 mg/dL (5-40)
[2023-12-12 18:27] LABS: Hemoglobin A1c 5.3 % (3.8-5.6)
== END | disposition home or self-care (01) ==
LOC: BFHLAB 15:57
PROVIDERS: PCP Family Medicine; Referring Provider Family Medicine; Visit Provider Family Medicine
DX: Z00.00 Encounter for general adult medical examination without abnormal findings (principal); F31.81 Bipolar II disorder; I49.3 Ventricular premature depolarization
CPT/HCPCS: 36415; 80053; 80061; 83036; 85025

== ENCOUNTER → 2024-02-06 | Outpatient (CLI) | payer OTHER, BC, SELFPAY ==
--- NOTE | 2024-02-06 09:59 | BI_ITS ---
MAMMOGRAPHY - BILATERAL SCREENING REASON FOR EXAM: Female, 48 years old. Routine annual screening examination. PERTINENT HISTORY: Grandmother with breast cancer. TECHNIQUE: Digital bilateral breast ana (3D mammographic acquisition) in the CC and MLO projections. 2-D mediolateral oblique (MLO) and craniocaudad (CC) views of both breasts were obtained. CAD: Full Field Digital Mammography with Computer Added Detection was performed. COMPARISON: Comparison is made with prior study December 04, 2022 and December 03, 2021. FINDINGS: Breast Composition: The breasts are heterogeneously dense, which may obscure small masses. There are no dominant masses or suspicious calcifications. No other significant abnormalities are identified. There has been no significant change since the prior study. BI/SCRN MAMM (CAD)W/ANA BILAT IMPRESSION: Stable bilateral screening mammogram. Yearly follow-up mammogram recommended. (A) ASSESSMENT CATEGORY: BIRADS Category 2: Benign. A letter regarding these results will be sent to the patient by the facility within 30 days. Approximately 10% of breast cancers are not detected by mammography. A normal mammogram should not delay biopsy of a clinically suspicious abnormality. [id number] Electronically Signed: Deep Henry MD at 11:22 EST ,
== END | disposition home or self-care (01) ==
LOC: OPBI 09:59
PROVIDERS: PCP Family Medicine; Referring Provider Obstetrics & Gynecology; Visit Provider Obstetrics & Gynecology
DX: Z12.31 Encounter for screening mammogram for malignant neoplasm of breast (principal); Z80.3 Family history of malignant neoplasm of breast
CPT/HCPCS: 77063; 77067

== ENCOUNTER → 2024-10-29 | Outpatient (CLI) | payer OTHER, BC, SELFPAY ==
[2024-10-29 16:36] LABS: Hematocrit 38.5 % (37-47); Hemoglobin 12.7 g/dL (12.0-15.0); Immature Granulocytes Count 0.020 X10^3/uL (0.0-0.0); Mean Corp Hgb Conc 33.0 g/dL (32-36); Mean Corpuscular Volume 90.2 fL (81-99); Mean Platelet Vol. 11.2 fl (6.2-12.0); NRBC Flagged by Analyzer 0 % (0-5); Platelet Count 281 K/mm3 (150-450); RBC Distribution Width CV 13.0 % (11.6-14.6); RBC Distribution Width SD 42.9 fl (35.1-43.9); Red Blood Count 4.27 M/mm3 (4.2-5.4); White Blood Count 5.2 K/mm3 (4.4-11.0)
[2024-11-10 16:09] LABS: HPV APTIMA, High Risk Negative (Negative)
== END | disposition home or self-care (01) ==
PROVIDERS: PCP Family Medicine; Referring Provider Obstetrics & Gynecology; Visit Provider Obstetrics & Gynecology
DX: Z12.4 Encounter for screening for malignant neoplasm of cervix (principal); N95.1 Menopausal and female climacteric states; N93.9 Abnormal uterine and vaginal bleeding, unspecified
CPT/HCPCS: 36415; 84443; 85025; 87624; 88175; G0145

== ENCOUNTER → 2025-01-24 | Outpatient (CLI) | payer OTHER, BC, SELFPAY ==
--- NOTE | 2025-01-24 14:45 | EMB_PTH ---
PATIENT: CHECO WINCHESTER LOC: [facility] U#:[id number] AGE/SX: 49/F ROOM: RE01/24/[address]: Dr. Khloe Mitchell MD : 1975 BED: DIS: 01/24/2025 SPEC #: [id number] RECD: 01/24/25 16:40 STATUS: JIMMY REQ #: [id number] ALEXIS: 01/24/25 14:[address]: Khloe Mitchell DEPT: SURGICAL PATHOLOGY RECD BY: Salomón Castillo ENTERED: 01/25/25 08:56 SP TYPE: ENDOM BX/C AZUCENA DR: Dr. Nadege Toure MD Tissues: A - Endometrium, NOS Procedures: Surgery Specimen Level IV HEADER OPERATION: Endometrial biopsy PRE-OP DIAGNOSIS: Abnormal uterine bleeding TISSUE SUBMITTED: A- Endometrial tissue MICROSCOPIC DIAGNOSIS A. Endometrium, biopsy: * Inactive endometrium MICROSCOPIC DESCRIPTION Slides are reviewed. GROSS DESCRIPTION A. Received in formalin labeled with the patient's name and date of . Designated as EMB is a 1.7 x 0.9 x 0.3 cm aggregate of mucoid material admixed with flecks of rodrigez to red tissue. Tiredly submitted in 1 cassette. Entirety of the specimen may not survive processing. NV 01/25CPT:[id number]
== END | disposition home or self-care (01) ==
LOC: LABSPEC 16:06
PROVIDERS: PCP Family Medicine; Visit Provider Obstetrics & Gynecology
DX: N93.9 Abnormal uterine and vaginal bleeding, unspecified (principal)
CPT/HCPCS: 88305

== ENCOUNTER → 2025-01-28 | Outpatient (CLI) | payer OTHER, BC, SELFPAY ==
--- NOTE | 2025-01-28 09:00 | BI_ITS ---
EXAM: DIAG MAMM W/CAD, BILAT 01/28/2025 CLINICAL HISTORY: F, Age 49 y/o , LEFT BREAST LUMP palpable mass left breasts. TECHNIQUE: Procedure Code: [id number] Modality: MG Procedure: DIAG MAMM W/CAD, BILAT. COMPARISON: Prior exam(s) dated 02/06/2024, 12/04/2022, and 12/03/2021. FINDINGS: TISSUE DENSITY: The breasts are extremely dense, which lowers the sensitivity of mammography. Bilateral Breast Mammographic Findings: There are no suspicious masses, suspicious clustered microcalcifications, architectural distortion or secondary signs of malignancy identified in the right breast. There is a faint cluster of benign- appearing round and punctate calcifications in the superior outer, far posterior aspect of the right breast. Benign round microcalcifications are seen elsewhere. There is a cluster of amorphous, round and punctate calcifications in the superior outer aspect of the left breast covering an area measuring approximately 15 mm. Further workup with ultrasound is indicated. There are 2 partially obscured irregularly marginated masses in the inferior medial aspect of the left breast which require additional workup. 1 of these correlates to the palpable area. The palpable mass measures approximately 2 cm and the smaller mass measures approximately 14 mm. Further workup with ultrasound will be performed of both masses. Benign round microcalcifications are seen elsewhere in the breast. BI/DIAG MAMM W/CAD, BILAT IMPRESSION: The calcifications in the right breast require a short-term six-month follow-up mammogram to document stability. The calcifications and masses in the left breast will be further worked up with ultrasound. Please see that report. OVERALL FINAL ASSESSMENT BI-RADS 0: INCOMPLETE - NEED ADDITIONAL IMAGING EVALUATION. RECOMMENDATION: Ultrasound Recommended Additional Recommendation none A letter with findings and recommendations will be mailed to the patient. Reading Location: [id number]
--- NOTE | 2025-01-28 09:18 | US_ITS ---
PROCEDURE: COMPLETE BREAST COMPLETE UNILATERAL 01/28/2025 REASON FOR EXAM: F, Age 49 y/o , LEFT BREAST LUMP Palpable abnormality left breast. Abnormal mammogram shows left breast masses. Evaluate. COMPARISON: Mammogram dated 01/20/2025. TECHNIQUE: Procedure Code: USBRU Modality: US Procedure: BREAST COMPLETE UNILATERAL. A complete left breast ultrasound was performed. All 4 quadrants were scanned as well as the retroareolar region and axillary region. FINDINGS: There is a complex heterogeneous hypoechoic and isoechoic mass in the left breast at the 630, 4 cm from nipple position measuring 1.4 x 1.3 x 0.9 cm. The margins are irregular. The mass does have blood flow. The masses worrisome for malignancy. It does correlate to 1 of the masses on the mammogram. Biopsy is warranted. There is a solid heterogeneous hypoechoic spiculated mass in the left breast at the 7 o'clock, 8 cm from nipple position measuring 2.1 x 1.8 x 1.1 cm. The mass does have blood flow. This mass does correlate to the palpable abnormality in 1 of the masses seen on the mammogram. Biopsy is warranted. There is a hypoechoic/anechoic mass in the left breast the 2 o'clock, 8 cm from nipple position measuring 5 x 4 x 3 mm. This mass has a calcifications or echogenic focus within it. There is flow to the mass. Biopsy is warranted in order to completely exclude a malignancy. There are benign-appearing axillary lymph nodes. These have fatty hilum and the cortexes are not abnormally thickened. These lymph nodes are located in the axillary region measuring 17 x 9 x 9 mm, 17 x 10 x 5 mm, and 17 x 9 x 6 mm. US/Breast Complete Unilateral IMPRESSION: There are 3 masses in the left breast which warrant biopsy in order to complete ly exclude a malignancy. BI-RADS 5: HIGHLY SUGGESTIVE OF MALIGNANCY. RECOMMENDATION: Biopsy Recommended Reading Location: [id number]
== END | disposition home or self-care (01) ==
LOC: OPBI 08:45
PROVIDERS: PCP Family Medicine; Referring Provider Obstetrics & Gynecology; Visit Provider Obstetrics & Gynecology
DX: N63.23 Unspecified lump in the left breast, lower outer quadrant (principal); N63.24 Unspecified lump in the left breast, lower inner quadrant; N63.21 Unspecified lump in the left breast, upper outer quadrant
CPT/HCPCS: 76641; 77062; 77066; G0279

== ENCOUNTER → 2025-02-22 | Outpatient (CLI) | payer OTHER, BC, SELFPAY ==
--- NOTE | 2025-02-22 12:55 | US_ITS ---
EXAM: US Pelvis Transabdominal and Transvaginal, Complete CLINICAL INDICATION: AUB, CLIMACTERIC TECHNIQUE: Real-time complete transabdominal and transvaginal pelvic ultrasound with image documentation. Transvaginal imaging was used for better evaluation of the endometrium and adnexa. COMPARISON: No relevant prior studies available. FINDINGS: UTERUS/CERVIX: Anechoic lesion of the endometrium measuring 0.4 x 0.7 x 0.4 cm. This could be a cyst. This could be further evaluated with pelvic MRI. No myometrial mass. The uterus measures 7.8 x 5.8 x 2.6 cm. RIGHT OVARY: Unremarkable. Normal arterial and venous blood flow. The right ovary measures 3.0 x 2.5 x 2.2 cm. LEFT OVARY: Left ovary of L1, 2.6, 2.1. Normal arterial and venous blood flow. FREE FLUID: No free fluid. BLADDER: Unremarkable as visualized. Wall is normal thickness for degree of distention. US/Pelvic w/ Transvaginal IMPRESSION: Anechoic lesion of the endometrium measuring 0.4 x 0.7 x 0.4 cm. This could be a cyst. This could be further evaluated with pelvic MRI. Reading Location: [id number]
== END | disposition home or self-care (01) ==
LOC: OPUS 12:51
PROVIDERS: PCP Family Medicine; Referring Provider Obstetrics & Gynecology; Visit Provider Obstetrics & Gynecology
DX: Z95.1 Presence of aortocoronary bypass graft (principal); N93.9 Abnormal uterine and vaginal bleeding, unspecified
CPT/HCPCS: 76830; 76856